=== PATIENT | male | born 1940 | race Caucasian/White ===

== ENCOUNTER 2019-07-27 15:32 | Outpatient (CLI) | payer MEDICARE, OTHER, SELFPAY ==
--- NOTE | ~2019-07-27 | XR_ITS ---
EXAMINATION: XR abdomen/kub 1V DATE: 07/27/2019 16:12 INDICATION: Left kidney stone. TECHNIQUE: A supine view of the abdomen on 2 radiographs was obtained. COMPARISON: Abdomen radiographs 01/02/2017, CT abdomen and pelvis 06/11/2016, chest CT 10/31/2018 FINDINGS: There are no dilated loops of bowel. There is an ostomy on the right. There are phleboliths in the pelvis. Calcifications in the pancreas are consistent with chronic pancreatitis. There are 4 mm and 2 mm densities overlying left kidney, likely stones. IMPRESSION: 1. Small left kidney stones. Reviewed, dictated and finalized at location E.
== END 2019-07-27 15:33 | disposition home or self-care (01) ==
LOC: ANHIMG 15:44
PROVIDERS: PCP Internal Medicine; Visit Provider Urology
DX: N20.0 Calculus of kidney (principal)
CPT/HCPCS: 74018

== ENCOUNTER 2020-10-19 03:06 | Inpatient (IN) | payer MEDICARE, OTHER, SELFPAY ==
[2020-10-19] VITALS (22 sets, daily range): BP systolic 111–168; BP diastolic 45–82; PULSE 88–112; RESP 14–32; TEMP 36.3–39.4; O2SAT 93–100; BMI 26.1
--- NOTE | ~2020-10-19 | XR_ITS ---
XR forearm LT 2V DATE: 10/19/2020 06:06 INDICATION: Fall. Posterior skin avulsion of distal left forearm TECHNIQUE: AP and lateral views COMPARISON: None FINDINGS: No fracture or dislocation, periosteal reaction or bone destruction. Normal alignment at th e elbow and wrist joints. No radiopaque foreign body. IMPRESSION: No significant abnormality Reviewed, dictated and finalized at location A. IMPRESSION: No significant abnormality
--- NOTE | ~2020-10-19 | CT_ITS ---
EXAMINATION: CT abdomen pelvis wo con DATE: 10/19/2020 06:10 INDICATION: Abdominal tenderness, fever. Fall. TECHNIQUE: Computed tomography (CT) of the abdomen and pelvis was performed without intravenous contr ast. Automated exposure control and iterative reconstruction technique were employed. Exam dose: 644 .38 mGy-cm total exam DLP. COMPARISON: 07/08/[address] abdomen pelvis FINDINGS: There is mild discoid atelectasis or scarring at the lung bases. Is evidence of old pulmona ry granulomatous disease. Normal heart size. No pericardial or pleural effusion. Very small sliding hiatal hernia. No hepatic, splenic, pancreatic, adrenal or renal space-occupying mass lesion is evident on this limi ej noncontrast examination. The gallbladder is present. No bile duct or pancreatic duct dilatation. There are numerous ons calcif ications throughout the pancreas consistent with chronic pancreatitis. One punctate nonobstructing right renal calculus is present. No right renal mass lesion. There are several nonobstructing left renal calculi, the largest measuring up to approximately 3 mm. There is an up to 3.8 x 5 mm distal left ureteral calculus with moderately prominent left hydroureter onephrosis as a result. There is perinephric stranding on the left. The urinary bladder is relatively evacuated. There is prostate enlargement and calcification. There is atherosclerotic calcification but normal caliber of the abdominal aorta. No intraperitoneal or retroperitoneal or pelvic mass lesion or adenopathy or ascites is noted. Status post colectomy with right lower quadrant ileostomy. No bowel obstruction or intraperitoneal fr ee air. Moderately prominent degenerative disc disease L3-4 and severe degenerative disease at L4-5 and L5-S1 No suspicious osteolytic or osteoblastic lesions are noted. IMPRESSION: 3.8 x 5 mm distal left ureteral obstructing calculus with moderately prominent left hydr oureteronephrosis 1. Punctate nonobstructing right renal calculus Several 3 mm smaller left renal nonobstructing calculi Chronic pancreatitis Status post colectomy, right ileostomy Reviewed, dictated and finalized at Location A. Reviewed, dictated and finalized at location A. IMPRESSION: 3.8 x 5 mm distal left ureteral obstructing calculus with moderate ly prominent left hydroureteronephrosis 1. Punctate nonobstructing right renal calculus Several 3 mm smaller left renal nonobstructing calculi Chronic pancreatitis Status post colectomy, right ileostomy
--- NOTE | ~2020-10-19 | CT_ITS ---
EXAMINATION: CT cervical spine wo con DATE: 10/19/2020 06:09 INDICATION: Neck pain following fall TECHNIQUE: Computed tomography (CT) of the cervical spine was performed without intravenous contrast. Automated exposure control and iterative reconstruction technique were employed. Exam dose: 404.01 mGy-cm total exam DLP. COMPARISON: None FINDINGS: C1 and C2 are normally aligned and the odontoid process is intact. No fracture or dislocation or locked facet or prevertebral soft tissue swelling. There is severe degenerative disc disease at C5-6 and C6-7 with prominent posterior spurring at these 2 levels. There is degenerative change at the apophyseal joints throughout the cervical spine. There is promine nt uncovertebral joint spurring at C5-6 and C6-7 bilaterally. IMPRESSION: Cervical spondylosis; no fracture or dislocation or locked facet Reviewed, dictated and finalized at Location A. Reviewed, dictated and finalized at location A.
--- NOTE | ~2020-10-19 | XR_ITS ---
EXAMINATION: XR retrograde pyelo w/stent LT DATE: 10/19/2020 14:11 INDICATION: Left ureteral stone. TECHNIQUE: 6 intraoperative fluoroscopic views of the abdomen and pelvis were obtained. I was not pre sent. Fluoroscopy exposure time was 30 seconds. COMPARISON: CT abdomen and pelvis 10/19/2020 FINDINGS: The left-sided retrograde pyelogram demonstrates a filling defect in the distal ureter, con sistent with a stone. There is moderate left hydronephrosis. There is a left internal ureteral stent in expected position. IMPRESSION: 1. Stone in distal left ureter with moderate left hydronephrosis. 2. Left internal ureteral stent in expected position. Reviewed, dictated and finalized at location A.
--- NOTE | ~2020-10-19 | XR_ITS ---
EXAMINATION: XR chest 1V portable DATE: 10/19/2020 21:56 INDICATION: Shortness of breath TECHNIQUE: frontal view of the chest was obtained. COMPARISON: Chest radiograph and CT abdomen and pelvis dated 10/19/2020 FINDINGS: Prominent paracardial fat pad at the lateral left lung base with blunting at the costophrenic angle. Adjacent oblique band of discoid atelectasis/scarring at the lateral left lower lung zone. Minimal st reaky atelectasis at the right lung base. No other airspace opacities, pulmonary edema, pleural effus ion or pneumothorax. The cardiomediastinal silhouette is normal. Old healed right-sided rib fractures . IMPRESSION: 1. Mild discoid atelectasis at the bilateral lower lung zones. No acute cardiopulmonary disease. Reviewed, dictated and finalized at location [facility]. IMPRESSION: 1. Mild discoid atelectasis at the bilateral lower lung zones. No acute cardiop ulmonary disease.
--- NOTE | ~2020-10-19 | CT_ITS ---
EXAMINATION: CT brain wo con DATE: 10/19/2020 06:09 INDICATION: Fall, head and neck injury. Weakness. Fever and abdominal tenderness TECHNIQUE: Computed tomography (CT) of the head was performed without intravenous contrast. The mA wa s adjusted according to patient size. Iterative reconstruction technique was employed. Exam dose: 60 5.33 mGy-cm total exam DLP. COMPARISON: None FINDINGS: No intracranial mass lesion or hemorrhage or cerebrovascular accident. No midline shift or mass effect effect. There is nonspecific diminished attenuation cerebral white matter, likely due to chronic small vessel ischemic changes. No subdural or epidural hematoma. No fracture or bone destruction of the cranial vault. Included paranasal sinuses and mastoid air cell s are unremarkable. IMPRESSION: Nonspecific diminished attenuation of the cerebral white matter, likely due to chronic s mall vessel ischemic changes No acute intracranial finding or skull fracture Reviewed, dictated and finalized at [facility]. Reviewed, dictated and finalized at location A. IMPRESSION: Nonspecific diminished attenuation of the cerebral white matter, l ikely due to chronic small vessel ischemic changes No acute intracranial finding or skull fracture
--- NOTE | ~2020-10-19 | XR_ITS ---
XR chest 1V portable DATE: 10/19/2020 03:29 INDICATION: Fever, weakness TECHNIQUE: Portable upright AP chest on 10/19/2020 at 0325 hours COMPARISON: 12/22/2014 2 view chest 10/31/[address] screening examination FINDINGS: Normal heart size. No hilar or mediastinal enlargement. No pulmonary consolidation or pleur al effusion or pneumothorax. No pleural effusion. Diffuse osteopenia. Multiple old healed right rib fracture deformities. IMPRESSION: No active cardiopulmonary disease Reviewed, dictated and finalized at location A.
--- NOTE | 2020-10-19 03:18 | ECG_ITS ---
Measurements Intervals [place] Rate: 101 P: 5 DC: 136 QRS: 8 QRSD: 92 T: -25 QT: 309 QTc: 400 Interpretive Statements SINUS TACHYCARDIA BORDERLINE T WAVE ABNORMALITY- ANTERIOR LEADS BASELINE ARTIFACT- II, III, AVR, AVL, AVF, V1-V6 BORDERLINE ECG Electronically Signed On 10-19-2020 5:54:28 CDT by Eduardo Stern D.O.
[2020-10-19 03:56] LABS: Basophils Absolute Auto 0.1 K/mm3 (0.0-0.1); Basophils Percent Auto 0.4 % (0.2-1.2); Eosinophils Percent Auto 0.1 % (0-4.4); Hematocrit 48.2 % (42.0-52.0); Hemoglobin 15.6 g/dL (14.0-18.0); Immature Granulocyte Absolute 0.32 K/mm3 (0.00-0.031); Immature Granulocyte Percent A 1.6 % (0-0.5); Lymphocytes Absolute Auto 0.57 K/mm3 (0.9-3.2); Lymphocytes Percent Auto 2.9 % (18.3-44.2); Mean Corpuscular HGB Conc 32.4 g/dl (32-36); Mean Corpuscular Hemoglobin 31.3 pg (26-34); Mean Corpuscular Volume 96.6 fl (80-100); Mean Platelet Volume 8.4 fl (7.4-10.4); Monocytes Absolute Auto 1.4 K/mm3 (0.1-0.6); Monocytes Percent Auto 7.2 % (2.6-8.5); Neutrophils Absolute Auto 17.4 K/mm3 (1.3-6.7); Neutrophils Percent Auto 87.8 % (45.5-73.1); Platelet Count Result 181 k/mm3 (150-375); Red Blood Count 4.99 M/mm3 (4.6-6.20); Red Cell Distribution Width 12.6 % (11.5-14.5); White Blood Count 19.8 K/mm3 (4.5-10.0)
[2020-10-19 04:09] LABS: Lactic Acid Reflex 2.8 mmol/L (0.7-2.1)
[2020-10-19 04:14] LABS: INR 1.1; Partial Thromboplastin Time 26.4 SECONDS (22.3-36.8); Prothrombin Time 14.2 Seconds (11.1-14.7)
[2020-10-19 04:16] LABS: Alanine Aminotransferase 24 U/L (4-50); Albumin Level 4.2 g/dL (3.5-5.1); Alkaline Phosphatase 93 U/L (38-126); Anion Gap 9 mmol/L (8-16); Aspartate Amino Transferase 30 U/L (17-59); Bilirubin,Total 1.5 mg/dL (0.2-1.3); Blood Urea Nitrogen 16 mg/dL (9-20); Calcium 9.6 mg/dL (8.4-10.2); Carbon Dioxide 25 mmol/L (22-30); Chloride 102 mmol/L (98-107); Creatine Kinase 395 U/L (55-170); Estimated Glomerular Filt Rate 42; Glucose 116 mg/dL (65-110); Magnesium 1.7 mg/dL (1.6-2.3); Potassium 3.4 mmol/L (3.4-5.0); Sodium 136 mmol/L (137-145)
[2020-10-19 04:30] LABS: CRP 21.8 mg/dL (<1.0)
[2020-10-19 04:59] LABS: Add Urine Microscopic? YES; Appearance Urine Clear (Clear); Bacteria Urine Trace /hpf; Bilirubin Urine Negative (Negative); Blood Urine 3+ (Negative); Color Urine Yellow (Yellow); Glucose Urine UA Negative (Negative); Ketones Urine Trace mg/dL (Negative); Leukocyte Esterase Ur 1+ LEU/UL (Negative); Mucus Urine Rare /lpf; Nitrate Urine Negative (Negative); Protein Urine 2+ mg/dL (Negative); Specific Grav Ur 1.016 (1.001-1.035); Squamous Epithelial Cell Urine Rare /hpf (Few); Urobilinogen Urine Negative mg/dL (<2.0); WBC Urine 31-50 /hpf
--- NOTE | 2020-10-19 05:22 | ED.GENADULT ---
HPI - General Adult General Chief complaint: Fall Stated complaint: fall Time Seen by Provider: 10/19/20 04:45 Source: patient Mode of arrival: EMS Limitations: no limitations History of Present Illness HPI narrative: This is a 79 year old male with history of Chrohns' disease and COPD who presents for evaluation of a fall. Patient states he has not felt well that last couple of days. He reports increased tremors, body aches, shortness of breath, and upset stomach. Today he states he was having difficulty walking due to weakness and he accidentally fell last night. He states he fell onto his left side. He hit his head but he denies LOC. He states he was unable to get up so he laid on the floor for 4 hours prior to coming to ER. He has decreased appetite and nausea, and he states he has not eaten today so he feels dehydrated. He states he feels like his chronic sob is being exacerbated because he does not feel well. He denies worsening cough. He denies sick contacts and he has been vaccinated for covid He also had mild dysuria. Related Data Home Medications Medication Instructions Recorded Confirmed finasteride 5 mg tablet 5 mg PO DAILY 01/20/20 01/20/20 fluticasone propionate 50 1 spray INTRANASAL BID 01/20/20 01/20/20 mcg/actuation nasal spray,suspension lactobacillus combination no.8 3 250 mmu cells PO DAILY cap 01/20/20 01/20/20 billion cell capsule tamsulosin 0.4 mg capsule 0.4 mg PO DAILY 01/20/20 01/20/20 magnesium oxide 400 mg PO DAILY 07/21/20 potassium 99 mg tablet mg PO DAILY tablet 07/21/20 albuterol sulfate 1 puff INHALATION QID PRN 10/19/20 10/19/20 [id number] 1 inh INHALATION DAILY 10/19/20 10/19/20 [Trelegy Ellipta] lorazepam 0.5 mg PO DAILY PRN 10/19/20 10/19/20 mesalamine [Pentasa] 500 mg PO TID 10/19/20 10/19/20 trazodone 50 mg PO HS PRN 10/19/20 10/19/20 Allergies Allergy/AdvReac Type Severity Reaction Status Date / Time clindamycin Allergy Unknown Itching Verified 10/19/20 03:16 Penicillins Allergy Unknown Anaphylactic Verified 10/19/20 03:16 Shock prednisone AdvReac Dizziness Verified 10/19/20 15:51 Contrast Media Allergy Unknown Itching Uncoded 10/19/20 03:16 Review of Systems Review of Systems: All systems reviewed & are unremarkable except as noted in HPI and below PMFSH Past Medical History Medical History Benign prostatic hyperplasia Chronic low back pain Chronic obstructive pulmonary disease Crohn's disease Depression with anxiety Gastroesophageal reflux disease Ileostomy in place Migraine headache Osteoarthritis Surgical History Surgical History History of exploratory laparotomy (02/03/13) Exploratory laparotomy with extensive adhesiolysis, partial small-bowel resection, takedown and ileostomy with creation of new ileostomy and 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 Status post colectomy (1991) Total colectomy in 1991 with subsequent ileostomy. Family History Family History Mother Family history of malignant neoplasm of breast in first degree relative Family history of Alzheimer's disease Family history of arthritis Breast cancer Father Cerebrovascular accident Family history of coronary artery disease Social History Social History Smoking packs per day: 1 Smoking cigarettes per day: 20.0 Years smoked: 40 Smoking pack-years: 40.00 Smoking status: Former smoker Tobacco type: cigarettes Smoking end date: 03/11/11 Alcohol intake: never Substance use: never Gender identity (if verbalized by the patient): Male Spiritual care concerns: No Exam Const: General: no acute distress and alert Orientation/consciousness: patient oriented x3 Eye
--- NOTE | 2020-10-19 05:43 | PC.NURSE ---
Pt to imaging at this time.
[2020-10-19] MEDS: SODIUM CHLORIDE 0.9% IV 1,000 ML 999 ML IV CONT (06:09)
[2020-10-19] MEDS: TETANUS,DIPHTHERIA,AC PERTUSSIS ADULT (0.5 ML) BOOSTRIX IM (06:12)
[2020-10-19 06:59] LABS: Reflex Lactic Acid Yes or No Add Lactic
--- NOTE | 2020-10-19 07:28 | PC.NURSE ---
care assumed at this time. bedside report from nasima resendez.
[2020-10-19 07:46] LABS: Lactic Acid 1.2 mmol/L (0.7-2.1)
--- NOTE | 2020-10-19 09:43 | WPDURCON ---
Assessment and Plan Assessment and plan (1) Severe sepsis: Code(s): A41.9 - Sepsis, unspecified organism; R65.20 - Severe sepsis without septic shock Status: Acute Assessment and Plan: Patient to continue Levaquin, tailor antibiotics to culture results. (2) Calculus of distal left ureter: Code(s): N20.1 - Calculus of ureter Status: Acute Assessment and Plan: Keep NPO. Obtain consent: Cystoscopy, left ureteroscopy with stent placement, left retrograde pyelogram. Plan to go to the OR today around 13:[address] Bae. Urology Consult Note HPI Date Seen: 10/19/20 Primary Care Provider: Konstantin Christian, Consult Narrative Narrative: Quan Martinez is a 79 year old male who presented to the ER this morning with weakness and a fall at home. He also c/o gross hematuria, dysuria, nausea and LLQ pain that radiates to the left flank. His symptoms have been present x 2 days. He is known patient of Dr. Bae's. He was last seen in our office on 03/09/2020 and was followed for known kidney stones. His most recent KUB known to us was in 07/2019 showing small left kidney stones. His WBC today is 19.8 and creatinine 1.60, urinalysis is suspicious for infection at this time, urine and blood cultures are pending. HIs CT scan today shows a 3.8x5mm left distal ureteral stone with mild hydronephrosis, punctate right renal stone and several other small left renal non obstructive stones measuring up to 3mm in size. Review of Systems Cardiovascular: Cardiovascular: Denies chest pain Respiratory: Respiratory: Reports no additional respiratory complaints Gastrointestinal: Gastrointestinal: Reports abdominal pain, Reports nausea and Denies vomiting Genitourinary: Genitourinary: Reports hematuria, Reports dysuria, Reports flank pain and Denies urinary frequency PMF Past Medical History Medical History Crohn's colitis Ileostomy in place Surgical History Surgical History Status post colectomy Family History Family History Mother Family history of malignant neoplasm of breast in first degree relative Other Cerebrovascular accident Family history of Alzheimer's disease Family history of arthritis Family history of coronary artery disease Social History Social History Smoking status: Former smoker Smoking end date: 03/11/93 Alcohol intake: current Meds Home Medications and Allergies Home Medications Medication Instructions Recorded Confirmed Type finasteride 5 mg tablet 5 mg PO DAILY 01/20/20 01/20/20 History fluticasone propionate 50 1 spray INTRANASAL BID 01/20/20 01/20/20 History mcg/actuation nasal spray,suspension lactobacillus combination no.8 3 250 mmu cells PO DAILY cap 01/20/20 01/20/20 History billion cell capsule montelukast 10 mg tablet 10 mg PO DAILY 01/20/20 01/20/20 History tamsulosin 0.4 mg capsule 0.4 mg PO DAILY 01/20/20 01/20/20 History trazodone 50 mg tablet 0.5 mg PO TID tablet 01/20/20 01/20/20 History magnesium oxide 400 mg PO DAILY 07/21/20 History potassium 99 mg tablet mg PO DAILY tablet 07/21/20 History Allergies Allergy/AdvReac Type Severity Reaction Status Date / Time clindamycin Allergy Unknown Itching Verified 10/19/20 03:16 Penicillins Allergy Unknown Anaphylactic Verified 10/19/20 03:16 Shock prednisone Allergy Dizziness Verified 10/19/20 03:16 Contrast Media Allergy Unknown Itching Uncoded 10/19/20 03:16 Vital Signs Vital Signs - 24 hr 10/19/20 03:07 10/19/20 04:42 10/19/20 05:01 Temperature 100.9 F H Pulse Rate 112 H 100 100 Respiratory Rate 28 H 18 32 H Blood Pressure 168/82 H 146/73 H 142/70 H Pulse Oximetry 96 98 96 10/19/20 05:31 10/19/20 06:31 10/19/20 07:2
--- NOTE | 2020-10-19 11:15 | PC.NURSE ---
This patient, Quan Martinez, was admitted to 3 [facility] Surg Room 323-01. Patient/family oriented to hospital policies and general routines including ID bracelet, bed and alarms, visiting hours, pain management, procedures, bathroom and other care routines, personal items, smoking policy, room service/diet, and visiting hours. Report received from Gisele WRIGHT Information on how to activate the Rapid Response Team has been discussed. Patient/Family are encouraged to report perceived risks to care and to ask questions if they do not understand what they are told or what they should do.
[2020-10-19] MEDS: SODIUM CHLORIDE 0.9% IV 1,000 ML 150 ML IV CONT (12:15)
--- NOTE | 2020-10-19 12:40 | PC.NURSE ---
To OR via stretcher.
--- NOTE | 2020-10-19 13:10 | PM.IMHP ---
H&P: HPI History of Present Illness Date/Time: 10/19/20 13:10 Chief Complaint: Fall. Narrative: This is a 79-year-old male Crohn's disease, COPD, and tremors who presented to the emergency department earlier today via EMS from home for evaluation after a fall. The patient has not been feeling well for several days with several symptoms including body aches, nausea, dry heaves, decreased appetite, dysuria, and increased tremors. Last evening he felt weak, lost his balance, and fell back onto floor where he lay for approximately 4 hours before he could call for help. He denies head trauma and loss of consciousness in the fall. He does report mild back discomfort and pain in his elbows where he sustained skin tears and bruising. In the emergency department he met criteria for sepsis and was found to have urinary tract infection as well as a distal ureteral calculus with left hydroureteronephrosis. He is now status post cystoscopy with stent placement. He is having some mild back discomfort and seems to feel a bit more short of breath than baseline, recently trying his inhaler without much benefit. He denies sinus congestion, rhinorrhea, otalgia, odynophagia, cough, chest pain, pleuritic pain, palpitations, orthopnea, PND, lower extremity edema, vomiting, and diarrhea. Review of Systems Review of Systems: Twelve systems were reviewed with pertinent positives and as per HPI. No sick contacts. No known exposure to those positive for COVID-19. He did have chills earlier on but no known fever at home. He denies syncope and near syncope. He does have COPD and has chronic dyspnea, sometimes at rest, but he feels a bit more short of breath tonight. No orthopnea or PND. He has not noticed any blood or mucus in his stool. He has faint upper extremity tremors intermittently which seemed to have gotten worse the last couple of days. Except as documented, all other systems were reviewed and are negative. 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 Status post colectomy (1991) Total colectomy in 1991 with subsequent ileostomy. Family History Family History Mother Family history of malignant neoplasm of breast in first degree relative Family history of Alzheimer's disease Family history of arthritis Breast cancer Father Cerebrovascular accident Family history of coronary artery disease Social History Social History (Updated 10/19/20 @ 21:48 by Tressa Krueger PA-C) Social History: Surrogate decision maker: Taylor Davis, friend. Code status: Full code. Smoking packs per day: 1 Smoking cigarettes per day: 20.0 Years smoked: 40 Smoking pack-years: 40.00 Smoking status: Former smoker Tobacco type: cigarettes Smoking end date: 03/11/11 Alcohol intake: never Substance use: never Additional living arrangements comments: The patient lives alone in [place]. He has no children. Has been for over many years. 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 Meds Home Medications and Allergies Home Medications Medication Instructions Recorded Confirmed Type finasteride 5 mg tablet 5 mg PO DAILY 01/20/20 10/19/20 History fluticasone propionate 50 1 spray INTRANASAL BID 01/20/20 10/19/20 History mcg/actuation nasal spray,s
--- NOTE | 2020-10-19 13:30 | WPDHPUPDATE1 ---
History and Physical Update Update Date/Time: 10/19/20 13:30 History and Physical has been reviewed, including an updated exam of the patient. There are NO changes in the patient's condition. Risks, benefits, and alternatives have been discussed and questions answered. Patient agrees to proceed with procedure.
--- NOTE | 2020-10-19 13:30 | WPDANESEPPF ---
Anes - Initial Pre Proc Eval Procedure: Operation Date: 10/19/20 13:30 Proposed Procedures p Cystoscopy,Left Retrograde Pyelogram,Left Stent Placement - Justin Bae MD Date/Time: 10/19/20 13:30 Surgeon: Tere Tran MD Pre Op Diagnosis: sepsis,uti,left disteal ureter stone Patient Data Age: 79 Gender: M Height: 1.73 m Weight: 78 kg Last Vital Signs Temp 38.7 C H 10/19/20 12:49 Pulse 105 H 10/19/20 12:49 Resp 20 10/19/20 12:49 BP 131/49 L 10/19/20 12:49 Pulse Ox 96 10/19/20 12:49 Allergies Allergy/AdvReac Type Severity Reaction Status Date / Time clindamycin Allergy Unknown Itching Verified 10/19/20 03:16 Penicillins Allergy Unknown Anaphylactic Verified 10/19/20 03:16 Shock prednisone Allergy Dizziness Verified 10/19/20 03:16 Contrast Media Allergy Unknown Itching Uncoded 10/19/20 03:16 Home Medications Medication Instructions Recorded Confirmed Type finasteride 5 mg tablet 5 mg PO DAILY 01/20/20 01/20/20 History fluticasone propionate 50 1 spray INTRANASAL BID 01/20/20 01/20/20 History mcg/actuation nasal spray,suspension lactobacillus combination no.8 3 250 mmu cells PO DAILY cap 01/20/20 01/20/20 History billion cell capsule montelukast 10 mg tablet 10 mg PO DAILY 01/20/20 01/20/20 History tamsulosin 0.4 mg capsule 0.4 mg PO DAILY 01/20/20 01/20/20 History trazodone 50 mg tablet 0.5 mg PO TID tablet 01/20/20 01/20/20 History magnesium oxide 400 mg PO DAILY 07/21/20 History potassium 99 mg tablet mg PO DAILY tablet 07/21/20 History Laboratory Tests 10/19/20 10/19/20 10/19/20 03:50 03:50 03:50 WBC 19.8 K/mm3 H K/mm3 (4.5-10.0) RBC 4.99 M/mm3 M/mm3 (4.6-6.20) Hgb 15.6 g/dL g/dL (14.0-18.0) Hct 48.2 % % (42.0-52.0) MCV 96.6 fl fl (80-100) MCH 31.3 pg pg (26-34) MCHC 32.4 g/dl g/dl (32-36) RDW 12.6 % % (11.5-14.5) Plt Count 181 k/mm3 k/mm3 (150-375) MPV 8.4 fl fl (7.4-10.4) Immature Gran % (Auto) 1.6 % H % (0-0.5) Neut % (Auto) 87.8 % H % (45.5-73.1) Lymph % (Auto) 2.9 % L % (18.3-44.2) [place] % (Auto) 7.2 % % (2.6-8.5) Eos % (Auto) 0.1 % % (0-4.4) Baso % (Auto) 0.4 % % (0.2-1.2) Lymph # (Auto) 0.57 K/mm3 L K/mm3 (0.9-3.2) [place] # (Auto) 1.4 K/mm3 H K/mm3 (0.1-0.6) Eos # (Auto) 0.0 K/mm3 K/mm3 (0-0.3) Baso # (Auto) 0.1 K/mm3 K/mm3 (0.0-0.1) Abs Immat Gran (auto) 0.32 K/mm3 H K/mm3 (0.00-0.031) Absolute Neuts (auto) 17.4 K/mm3 H K/mm3 (1.3-6.7) Absolute Nucleated RBC 0.0 K/mm3 K/mm3 (0.0-0.012) Nucleated RBC % 0.0 % % (0.0-0.2) PT 14.2 Seconds Seconds (11.1-14.7) INR 1.1 APTT 26.4 SECONDS SECONDS (22.3-36.8) Sodium 136 mmol/L L mmol/L (137-145) Potassium 3.4 mmol/L mmol/L (3.4-5.0) Chloride 102 mmol/L mmol/L (98-107) Carbon Dioxide 25 mmol/L mmol/L (22-30) Anion Gap 9 mmol/L mmol/L (8-16) BUN 16 mg/dL mg/dL (9-20) Creatinine 1.60 mg/dL H mg/dL (0.7-1.3) Estim Creat Clear Calc Not Reportable Estimated GFR 42 L (59 - ) Glucose 116 mg/dL H mg/dL (65-110) Lactic Acid Calcium 9.6 mg/dL mg/dL (8.4-10.2) Magnesium 1.7 mg/dL mg/dL (1.6-2.3) Total Bilirubin 1.5 mg/dL H mg/dL (0.2-1.3) AST 30 U/L U/L (17-59) ALT 24 U/L U/L (4-50) Alkaline Phosphatase 93 U/L U/L (38-126) Total Creatine Kinase 395 U/L H U/L (55-170) C-Reactive Protein 21.8 mg/dL H mg/dL (<1.0) Total Protein 7.0 g/dL g/dL (6.3-8.2) Albumin 4.2 g/dL g/dL (3.5-5.1) Urine Color Urine Appearance Urine pH
[2020-10-19] MEDS: LACTATED RINGERS 1,000 ML 30 ML IV CONT ×2 (13:38→15:22)
--- NOTE | 2020-10-19 13:45 | SUR.PREOP ---
ATTEMPTED TO UPDATE NOEYDA [place]AR[place]. PHONE NUMBER LISTED IS INCORRECT. NOTIFIED OR STAFF TO MAKE DR MERCADO AWARE. ALSO NOTIFIED MARIANNE [employer] THAT PT'S TEMP IS 102.7
[2020-10-19] MEDS: LIDOCAINE HCL 2% GEL UROJET 10 ML PKG MUCOUS MEM (14:00)
--- NOTE | 2020-10-19 14:09 | P.OP_ITS ---
Procedure Note - Detailed Date of Procedure 10/19/20 Pre-op Diagnosis sepsis,uti,left distal ureter stone Post-op Diagnosis same Procedure Performed Cystoscopy, left retrograde pyelogram, left ureteral stent insertion, Odell catheter insertion Surgeon Justin Bae MD Anesthesia general Findings Left hydronephrosis Description of Procedure Informed consents obtained. Patient taken the operating. Given preoperative IV antibiotics on the floor. The patient was induced anesthesia. He was placed in dorsal lithotomy position. He was prepped draped normal sterile fashion. A 22 F cystoscope was inserted through the urethra into the bladder. The bladder s howed finding consistent with his known urinary tract infection. There is bilateral orthotopic ureteral orifices. We cannulated the left ureteral orifice retrograde pyelogram was performed that showed a filling defect in the mid/distal ureter. We then manipulate a wire past the level of the stone. We then performed additional retrograde pyelogram showing severe left hydronephrosis. At this point we placed a 6 F variable length stent with a curl in the renal pelvis and a curl in the bladder. The bladder was then emptied with a Odell catheter. The patient has taken recovery room stable condition Drains No Packing No Pathology none sent Complications No immediate complications Condition stable Disposition PACU
--- NOTE | 2020-10-19 15:34 | SUR.PHASEI ---
[id number] sbar faxed floor notified
--- NOTE | 2020-10-19 15:55 | PC.NURSE ---
Back from OR via stretcher.
[2020-10-19] MEDS: SODIUM CHLORIDE 0.9% IV 1,000 ML 125 ML IV CONT (16:36)
[2020-10-19] MEDS: FLUTICASONE PROPIONATE 0.05% NA SPR 16 GM BTL (*BKC) 1 SPRAY NASAL (18:47)
[2020-10-19 22:45] LABS: Lactic Acid Reflex 1.2 mmol/L (0.7-2.1)
[2020-10-19 22:46] LABS: Anion Gap 6 mmol/L (8-16); Blood Urea Nitrogen 20 mg/dL (9-20); Carbon Dioxide 22 mmol/L (22-30); Chloride 104 mmol/L (98-107); Creatine Kinase 737 U/L (55-170); Estimated CRCL calculation 33 ml/min; Estimated Glomerular Filt Rate 42; Glucose 96 mg/dL (65-110); Magnesium 1.4 mg/dL (1.6-2.3); Potassium 4.1 mmol/L (3.4-5.0); Sodium 132 mmol/L (137-145)
[2020-10-19 22:55] LABS: NT Pro B Type Natriuretic Pept 1620 pg/mL (5-100)
[2020-10-20] MEDS: MAGNESIUM SULF 1 GM/D5W 100 ML 1 GM/100 ML BAG IVPB (00:39)
[2020-10-20 00:40] VITALS: TEMP 37.1
[2020-10-20] MEDS: SODIUM CHLORIDE 0.9% IV 1,000 ML 125 ML IV CONT ×3 (00:40→17:17)
[2020-10-20 05:49] VITALS: BP 103/53; PULSE 87; RESP 18; TEMP 38.1; O2SAT 95
[2020-10-20 07:17] LABS: Hematocrit 39.7 % (42.0-52.0); Hemoglobin 12.5 g/dL (14.0-18.0); Mean Corpuscular HGB Conc 31.5 g/dl (32-36); Mean Corpuscular Hemoglobin 30.9 pg (26-34); Mean Corpuscular Volume 98.3 fl (80-100); Mean Platelet Volume 8.8 fl (7.4-10.4); Platelet Count Result 132 k/mm3 (150-375); Red Blood Count 4.04 M/mm3 (4.6-6.20); Red Cell Distribution Width 12.8 % (11.5-14.5); White Blood Count 10.7 K/mm3 (4.5-10.0)
[2020-10-20 07:39] LABS: Alanine Aminotransferase 17 U/L (4-50); Albumin Level 2.5 g/dL (3.5-5.1); Alkaline Phosphatase 56 U/L (38-126); Anion Gap 8 mmol/L (8-16); Aspartate Amino Transferase 39 U/L (17-59); Bilirubin,Total 0.4 mg/dL (0.2-1.3); Blood Urea Nitrogen 20 mg/dL (9-20); Calcium 7.6 mg/dL (8.4-10.2); Carbon Dioxide 19 mmol/L (22-30); Chloride 102 mmol/L (98-107); Estimated CRCL calculation 35 ml/min; Estimated Glomerular Filt Rate 45; Glucose 83 mg/dL (65-110); Magnesium 1.9 mg/dL (1.6-2.3); Potassium 3.9 mmol/L (3.4-5.0); Sodium 129 mmol/L (137-145)
[2020-10-20 08:26] LABS: Band Neutrophils Percent 15 % (0-6); Hypochromasia 2+ (NORMAL); Lymphocytes Absolute Manual 0.32 K/mm3 (1.1-4.5); Monocytes Absolute Manual 0.64 K/mm3 (0.1-0.90); Monocytes Percent Manual 6 % (3-9); Neutrophils Absolute Manual 9.73 K/mm3 (1.3-6.7); Neutrophils Percent Manual 76 % (46-73); Platelet Estimate Adequate (Adequate); Total Cells Counted 100
--- NOTE | 2020-10-20 08:52 | WPDUROPN2 ---
Progress Note: A&P Assessment and Plan (1) Elevated serum creatinine: Code(s): R79.89 - Other specified abnormal findings of blood chemistry Status: Acute Assessment and Plan: Improved slightly since stent was placed, now at 1.50 from 1.60 yesterday. Will continue to monitor until it returns to baseline. (2) Sepsis: Code(s): A41.9 - Sepsis, unspecified organism Status: Acute Assessment and Plan: Continue IV antibiotics, culture is pending, tailor antibiotics to culture results. WBC has significantly improved to 10.7 from 19.8 yesterday. (3) Calculus of distal left ureter: Code(s): N20.1 - Calculus of ureter Status: Acute Assessment and Plan: Left stent in place, will plan to remove stone in 1-2 weeks once infection has cleared. No further surgical procedures necessary at this time. Subjective Subjective Date/Time Seen: 10/20/20 08:53 POD #1 Cystoscopy, left stent placement, left retrograde pyelogram. Patient doing better today, pain is improved, c/o of some stent pain with urination and activity. Tolerating diet well. Review of Systems Cardiovascular: Cardiovascular: Denies chest pain Respiratory: Respiratory: Reports no additional respiratory complaints Gastrointestinal: Gastrointestinal: Reports abdominal pain, Denies nausea and Denies vomiting Genitourinary: Genitourinary: Reports hematuria, Reports dysuria and Reports flank pain Exam Resp: Effort & Inspection: normal respiratory effort Cardio: Rate: regular rate GI: GI Palp: Yes Soft to palpation and Yes Tenderness to palpation present (GI) (Bilateral lower quadrants.) : General: Yes CVA tenderness on the left Extrem: General: no edema Objective Data Vital Signs Vital Signs: Vital Signs - 24 hr 10/19/20 10:38 10/19/20 12:10 10/19/20 12:49 Temperature 101.6 F H Pulse Rate 102 H 105 H Respiratory Rate 16 20 Blood Pressure 138/82 131/49 L Pulse Oximetry 100 100 96 10/19/20 13:38 10/19/20 14:25 10/19/20 14:40 Temperature 102.7 F H 97.4 F L Pulse Rate 107 H 103 H 102 H Respiratory Rate 22 H 22 H 20 Blood Pressure 121/63 118/59 L 118/59 L Pulse Oximetry 95 98 100 10/19/20 14:45 10/19/20 15:00 10/19/20 15:15 Temperature Pulse Rate 91 89 90 Respiratory Rate 20 18 20 Blood Pressure 124/57 L 120/58 L 111/65 Pulse Oximetry 97 98 97 10/19/20 15:30 10/19/20 15:46 10/19/20 16:03 Temperature 99.8 F H Pulse Rate 89 92 88 Respiratory Rate 20 14 20 Blood Pressure 120/67 133/71 126/45 L Pulse Oximetry 93 95 96 10/19/20 20:00 10/19/20 22:10 10/19/20 22:18 Temperature 103 F H 103.0 F H Pulse Rate 96 Respiratory Rate 20 20 Blood Pressure 128/56 L Pulse Oximetry 96 94 10/19/20 23:00 10/20/20 00:40 10/20/20 05:49 Temperature 101.7 F H 98.7 F 100.5 F H Pulse Rate 87 Respiratory Rate 18 Blood Pressure 103/53 L Pulse Oximetry 95 Intake/Output Intake/Output: Intake & Output 10/17/20 10/18/20 10/19/20 10/20/20 23:59 23:59 23:59 23:59 Intake Total 3336 1300 Output Total 800 1050 Balance 2536 250 Meds/Results Medications: Active Medications Generic Name Dose Route Start Last Admin Trade Name Marquiseq PRN Reason Stop Dose Admin Finasteride 5 mg 10/20/20 09:00 Finasteride 5 Mg Tablet PO DAILY MATHEW Fluticasone Propionate 1 spray 10/19/20 17:00 10/19/20 18:47 Fluticasone Propionate 0.05% Na Spr 16 Gm Btl (*Bkc) NASAL 1 spray BID MATHEW Administration Levofloxacin/Dextrose 750 mg in 150 mls @ 100 mls/hr 10/21/20 06:00 Levaquin 750 Mg/D5w 150 Ml IVPB Q48H MATHEW Sodium Chloride 1,000 mls @ 100 mls/hr 10/19/20 14:39 10/20/20 00:40 Normal Saline Iv IV CONT 125 mls/hr .Q10H MTAHEW Administration Lactobacillus Acidophilus 1 tablet 10/20/20 09:00 Acidophilus/Bulgaricus Chewable Tablet PO DAILY MATHEW Magnesium Oxide 400 mg 10/20/20 09:00 Magnesium Oxide 400 Mg Tablet PO DAILY S
[2020-10-20] MEDS: FINASTERIDE 5 MG TABLET PO (09:16)
[2020-10-20] MEDS: TAMSULOSIN HCL 0.4 MG CAPSULE PO (09:16)
[2020-10-20] MEDS: MAGNESIUM OXIDE 400 MG TABLET PO ×2 (09:17→09:19)
[2020-10-20] MEDS: FLUTICASONE PROPIONATE 0.05% NA SPR 16 GM BTL (*BKC) 1 SPRAY NASAL (09:17)
[2020-10-20] MEDS: ACIDOPHILUS/BULGARICUS CHEWABLE TABLET 1 TABLET PO (09:17)
--- NOTE | 2020-10-20 15:06 | PM.IMPN ---
Progress Note: A&P Assessment and Plan (1) Sepsis: Code(s): A41.9 - Sepsis, unspecified organism Status: Acute Assessment and Plan: 2/2 UTI fever, tachycardia, leukocytosis, and elevated lactic acid level POA Continue with IV levofloxacin (2) Urinary tract infection: Code(s): N39.0 - Urinary tract infection, site not specified Status: Acute Assessment and Plan: UC NGTD Treatment as above (3) Calculus of distal left ureter: Code(s): N20.1 - Calculus of ureter Status: Acute Assessment and Plan: S/p cystoscopy with left ureteral stent placement per Dr. Bae POD #1 (4) Elevated serum creatinine: Code(s): R79.89 - Other specified abnormal findings of blood chemistry Status: Acute Assessment and Plan: Improving Suspect 2/2 poor intake, ureter stone Cr 1.6-->1.5 today Continue IVF Monitor (5) Benign prostatic hyperplasia: Code(s): N40.0 - Benign prostatic hyperplasia without lower urinary tract symptoms Status: Chronic Assessment and Plan: Continue home meds (6) Chronic obstructive pulmonary disease: Code(s): J44.9 - Chronic obstructive pulmonary disease, unspecified Status: Acute Assessment and Plan: No acute exacerbation Continue home inhalers (7) Crohn's disease: Code(s): K50.90 - Crohn's disease, unspecified, without complications Status: Acute Assessment and Plan: Stable Additional Plan Disposition: d/c home with [facility] pending recovery Subjective Date/time seen: 10/20/20 15:06 Interval history: pt seen and evaluated; no acute events; complains of [place] and some lower abdominal discomformt Review of Systems Review of Systems: All systems reviewed & are unremarkable except as noted in HPI and below Exam Const: General: no acute distress, alert and awake Orientation/consciousness: patient oriented x3 HENMT: Head: normocephalic and atraumatic Ears: hearing grossly normal bilaterally and external ears normal Face and sinus: face symmetric Mouth: Yes Normal oral and palatal mucosa present Eyes: Pupils: Equal, round and reactive pupils present EOM: EOMs intact bilaterally Neck: Neck: full ROM, trachea midline and no JVD Thyroid: thyroid normal Chest: Chest palpation & inspection: normal inspection of the chest Resp: Effort & Inspection: normal respiratory effort Auscultation: clear to auscultation bilaterally Cardio: Jugular venous distension: no JVD Rate: regular rate Rhythm: regular rhythm Heart sounds: S1 normal heart sound present and S2 normal heart sound present GI: Inspection: other (ileostomy ) GI Palp: Yes abdominal tenderness and Yes Soft to palpation Percussion: Yes normal to percussion : General: Yes no CVA tenderness Back/Spine/Pelvis: Back: no CVA tenderness Skin: General skin exam: normal color Rashes: no rashes Neuro: General: patient oriented x3 and CN's II-XI intact bilaterally Cranial nerves: Yes Equal, round and reactive pupils present Speech: normal speech Psych: Appearance: grossly normal Affect: normal affect Judgement: Good judgement present (Psych) Objective Data Vital Signs Vital Signs: Vital Signs - 24 hr 10/19/20 15:15 10/19/20 15:30 10/19/20 15:46 Temperature Pulse Rate 90 89 92 Respiratory Rate 20 20 14 Blood Pressure 111/65 120/67 133/71 Pulse Oximetry 97 93 95 10/19/20 16:03 10/19/20 20:00 10/19/20 22:10 Temperature 37.7 C H 39.4 C H Pulse Rate 88 Respiratory Rate 20 20 Blood Pressure 126/45 L Pulse Oximetry 96 96 10/19/20 22:18 10/19/20 23:00 10/20/20 00:40 Temperature 39.4 C H 38.7 C H 37.1 C Pulse Rate 96 Respiratory Rate 20 Blood Pressure 128/56 L Pulse Oximetry 94 10/20/20 05:49 Temperature 38.1 C H Pulse Rate 87 Respiratory Rate 18 Blood Pressure 103/53 L Pulse Oximetry 95 Intake/Output Intake/Output: Intake & Output 10/17/20 10/18/20 10/19/20 0
[2020-10-20 15:17] VITALS: BP 132/53; PULSE 76; RESP 18; TEMP 36.8; O2SAT 96
[2020-10-20] MEDS: HYDROcodone/acetaminophen (*CRX) 5-325 MG TABLET 1 TAB PO (17:15)
[2020-10-20 20:00] VITALS: O2SAT 96
[2020-10-21] MEDS: HYDROcodone/acetaminophen (*CRX) 5-325 MG TABLET 1 TAB PO ×2 (05:49→17:59)
[2020-10-21 06:00] VITALS: BP 150/62; PULSE 70; RESP 18; TEMP 37.2; O2SAT 96
[2020-10-21] MEDS: FLUTICASONE PROPIONATE 0.05% NA SPR 16 GM BTL (*BKC) 1 SPRAY NASAL (08:05)
[2020-10-21] MEDS: TAMSULOSIN HCL 0.4 MG CAPSULE PO (08:05)
[2020-10-21] MEDS: ACIDOPHILUS/BULGARICUS CHEWABLE TABLET 1 TABLET PO (08:05)
[2020-10-21] MEDS: MAGNESIUM OXIDE 400 MG TABLET PO (08:05)
[2020-10-21] MEDS: FINASTERIDE 5 MG TABLET PO (08:05)
[2020-10-21] MEDS: SODIUM CHLORIDE 0.9% IV 1,000 ML 125 ML IV CONT (08:13)
[2020-10-21 09:56] LABS: Anion Gap 5 mmol/L (8-16); Blood Urea Nitrogen 21 mg/dL (9-20); Carbon Dioxide 19 mmol/L (22-30); Chloride 108 mmol/L (98-107); Estimated CRCL calculation 41 ml/min; Estimated Glomerular Filt Rate 53; Glucose 141 mg/dL (65-110); Potassium 3.7 mmol/L (3.4-5.0); Sodium 132 mmol/L (137-145)
--- NOTE | 2020-10-21 15:00 | PM.IMPN ---
Progress Note: A&P Assessment and Plan (1) Sepsis: Code(s): A41.9 - Sepsis, unspecified organism Status: Acute Assessment and Plan: 2/2 UTI fever, tachycardia, leukocytosis, and elevated lactic acid level POA Continue with IV levofloxacin (2) Urinary tract infection: Code(s): N39.0 - Urinary tract infection, site not specified Status: Acute Assessment and Plan: UC-->Gram negative bacilli Will wait sensitivity Treatment as above (3) Calculus of distal left ureter: Code(s): N20.1 - Calculus of ureter Status: Acute Assessment and Plan: S/p cystoscopy with left ureteral stent placement per Dr. Bae POD #2 (4) Elevated serum creatinine: Code(s): R79.89 - Other specified abnormal findings of blood chemistry Status: Acute Assessment and Plan: Improved Suspect 2/2 poor intake, ureter stone Cr 1.6-->1.5--> today IVF d/c'd Monitor (5) Benign prostatic hyperplasia: Code(s): N40.0 - Benign prostatic hyperplasia without lower urinary tract symptoms Status: Chronic Assessment and Plan: Continue home meds (6) Chronic obstructive pulmonary disease: Code(s): J44.9 - Chronic obstructive pulmonary disease, unspecified Status: Acute Assessment and Plan: No acute exacerbation Continue home inhalers (7) Crohn's disease: Code(s): K50.90 - Crohn's disease, unspecified, without complications Status: Acute Assessment and Plan: Stable Additional Plan Disposition: d/c home with [facility] pending recovery Subjective Date/time seen: 10/21/20 15:00 Interval history: pt seen and evaluated; no acute events; no new complaints; pain controlled Review of Systems Review of Systems: All systems reviewed & are unremarkable except as noted in HPI and below Exam Const: General: no acute distress, alert and awake Orientation/consciousness: patient oriented x3 HENMT: Head: normocephalic and atraumatic Ears: hearing grossly normal bilaterally and external ears normal Face and sinus: face symmetric Mouth: Yes Normal oral and palatal mucosa present Eyes: Pupils: Equal, round and reactive pupils present EOM: EOMs intact bilaterally Neck: Neck: full ROM, trachea midline and no JVD Thyroid: thyroid normal Chest: Chest palpation & inspection: normal inspection of the chest Resp: Effort & Inspection: normal respiratory effort Auscultation: clear to auscultation bilaterally Cardio: Jugular venous distension: no JVD Rate: regular rate Rhythm: regular rhythm Heart sounds: S1 normal heart sound present and S2 normal heart sound present GI: Inspection: other (ileostomy ) : General: Yes no CVA tenderness Back/Spine/Pelvis: Back: no CVA tenderness Skin: General skin exam: normal color Rashes: no rashes Neuro: General: patient oriented x3 and CN's II-XI intact bilaterally Cranial nerves: Yes Equal, round and reactive pupils present Speech: normal speech Psych: Appearance: grossly normal Affect: normal affect Judgement: Good judgement present (Psych) Objective Data Vital Signs Vital Signs: Vital Signs - 24 hr 10/20/20 15:17 10/20/20 20:00 10/21/20 06:00 Temperature 36.8 C 37.2 C Pulse Rate 76 70 Respiratory Rate 18 18 Blood Pressure 132/53 L 150/62 H Pulse Oximetry 96 96 96 Intake/Output Intake/Output: Intake & Output 10/18/20 10/19/20 10/20/20 10/21/20 23:59 23:59 23:59 23:59 Intake Total 3336 4780 1570 Output Total 800 3050 1575 Balance 2536 1730 -5 Meds/Results Medications: Active Medications Generic Name Dose Route Start Last Admin Trade Name Freq PRN Reason Stop Dose Admin Acetaminophen 650 mg 10/20/20 12:35 Acetaminophen 325 Mg Tablet PO Q4H PRN Mild Pain (1-3) or Fever Hydrocodone Bitart/Acetaminophen 1 tab 10/20/20 15:24 10/21/20 05:49 Hydrocodone/Acetaminophen (*Crx) 5-325 Mg Tablet PO 1 tab Q4H PRN Administration
[2020-10-22 07:43] LABS: Hematocrit 38.2 % (42.0-52.0); Hemoglobin 12.9 g/dL (14.0-18.0); Mean Corpuscular HGB Conc 33.8 g/dl (32-36); Mean Corpuscular Hemoglobin 31.1 pg (26-34); Mean Platelet Volume 9.2 fl (7.4-10.4); Platelet Count Result 175 k/mm3 (150-375); Red Blood Count 4.15 M/mm3 (4.6-6.20); Red Cell Distribution Width 12.3 % (11.5-14.5); White Blood Count 6.8 K/mm3 (4.5-10.0)
[2020-10-22 08:09] LABS: Anion Gap 9 mmol/L (8-16); Blood Urea Nitrogen 19 mg/dL (9-20); Calcium 8.6 mg/dL (8.4-10.2); Carbon Dioxide 18 mmol/L (22-30); Chloride 105 mmol/L (98-107); Estimated CRCL calculation 44 ml/min; Estimated Glomerular Filt Rate 59; Glucose 88 mg/dL (65-110); Potassium 3.7 mmol/L (3.4-5.0); Sodium 132 mmol/L (137-145)
[2020-10-22] MEDS: ACIDOPHILUS/BULGARICUS CHEWABLE TABLET 1 TABLET PO (08:39)
[2020-10-22] MEDS: TAMSULOSIN HCL 0.4 MG CAPSULE PO (08:40)
[2020-10-22] MEDS: FINASTERIDE 5 MG TABLET PO (08:40)
[2020-10-22] MEDS: FLUTICASONE PROPIONATE 0.05% NA SPR 16 GM BTL (*BKC) 1 SPRAY NASAL ×2 (08:40→17:05)
[2020-10-22] MEDS: MAGNESIUM OXIDE 400 MG TABLET PO (08:40)
[2020-10-22 14:00] VITALS: BP 122/60; PULSE 79; RESP 20; TEMP 36.9; O2SAT 98
--- NOTE | 2020-10-22 16:03 | PM.IMPN ---
Progress Note: A&P Assessment and Plan (1) Sepsis: Code(s): A41.9 - Sepsis, unspecified organism Status: Acute Assessment and Plan: 2/2 UTI fever, tachycardia, leukocytosis, and elevated lactic acid level POA Continue with IV levofloxacin (2) Urinary tract infection: Code(s): N39.0 - Urinary tract infection, site not specified Status: Acute Assessment and Plan: UC-->Pseudomonas aeruginosa Will wait sensitivity Treatment as above (3) Calculus of distal left ureter: Code(s): N20.1 - Calculus of ureter Status: Acute Assessment and Plan: S/p cystoscopy with left ureteral stent placement per Dr. Bae POD #3 (4) Elevated serum creatinine: Code(s): R79.89 - Other specified abnormal findings of blood chemistry Status: Acute Assessment and Plan: Improved Suspect 2/2 poor intake, ureter stone Cr 1.6-->1.5-->1.2 today S/p IVF Monitor (5) Benign prostatic hyperplasia: Code(s): N40.0 - Benign prostatic hyperplasia without lower urinary tract symptoms Status: Chronic Assessment and Plan: Continue home meds (6) Chronic obstructive pulmonary disease: Code(s): J44.9 - Chronic obstructive pulmonary disease, unspecified Status: Acute Assessment and Plan: No acute exacerbation Continue home inhalers (7) Crohn's disease: Code(s): K50.90 - Crohn's disease, unspecified, without complications Status: Acute Assessment and Plan: Stable Additional Plan Disposition: d/c home with [facility] pending recovery Subjective Date/time seen: 10/22/20 16:03 Interval history: pt seen and evaluated; no acute events; overall, he feels better and is improving; pain controlled Exam Const: General: no acute distress, alert and awake Orientation/consciousness: patient oriented x3 HENMT: Head: normocephalic and atraumatic Ears: hearing grossly normal bilaterally and external ears normal Face and sinus: face symmetric Mouth: Yes Normal oral and palatal mucosa present Eyes: Pupils: Equal, round and reactive pupils present EOM: EOMs intact bilaterally Neck: Neck: full ROM, trachea midline and no JVD Thyroid: thyroid normal Chest: Chest palpation & inspection: normal inspection of the chest Resp: Effort & Inspection: normal respiratory effort Auscultation: clear to auscultation bilaterally Cardio: Jugular venous distension: no JVD Rate: regular rate Rhythm: regular rhythm Heart sounds: S1 normal heart sound present and S2 normal heart sound present GI: Inspection: other (ileostomy ) : General: Yes no CVA tenderness Back/Spine/Pelvis: Back: no CVA tenderness Skin: General skin exam: normal color Rashes: no rashes Neuro: General: patient oriented x3 and CN's II-XI intact bilaterally Cranial nerves: Yes Equal, round and reactive pupils present Speech: normal speech Psych: Appearance: grossly normal Affect: normal affect Judgement: Good judgement present (Psych) Objective Data Vital Signs Vital Signs: Vital Signs - 24 hr 10/22/20 14:00 Temperature 36.9 C Pulse Rate 79 Respiratory Rate 20 Blood Pressure 122/60 Pulse Oximetry 98 Intake/Output Intake/Output: Intake & Output 10/19/20 10/20/20 10/21/20 10/22/20 23:59 23:59 23:59 23:59 Intake Total 3336 4780 3010 1230 Output Total 800 3050 2325 2400 Balance 2536 1730 685 -1170 Meds/Results Medications: Active Medications Generic Name Dose Route Start Last Admin Trade Name Freq PRN Reason Stop Dose Admin Acetaminophen 650 mg 10/20/20 12:35 Acetaminophen 325 Mg Tablet PO Q4H PRN Mild Pain (1-3) or Fever Hydrocodone Bitart/Acetaminophen 1 tab 10/20/20 15:24 10/21/20 17:59 Hydrocodone/Acetaminophen (*Crx) 5-325 Mg Tablet PO 1 tab Q4H PRN Administration Pain Rated 4-6 Finasteride 5 mg 10/20/20 09:00 10/22/20 08:40 Finasteride 5 Mg Tablet PO 5 mg DAILY MATHEW Administration Flu
[2020-10-22 21:13] VITALS: BP 112/55; PULSE 76; RESP 18; TEMP 36.4; O2SAT 94
[2020-10-23 04:25] VITALS: BP 166/72; PULSE 77; RESP 20; TEMP 36.2; O2SAT 97
[2020-10-23] MEDS: ACETAMINOPHEN 325 MG TABLET 650 MG PO (06:55)
[2020-10-23 07:29] LABS: Anion Gap 5 mmol/L (8-16); Blood Urea Nitrogen 24 mg/dL (9-20); Calcium 8.8 mg/dL (8.4-10.2); Carbon Dioxide 19 mmol/L (22-30); Chloride 108 mmol/L (98-107); Estimated CRCL calculation 44 ml/min; Estimated Glomerular Filt Rate 59; Glucose 99 mg/dL (65-110); Potassium 3.6 mmol/L (3.4-5.0); Sodium 132 mmol/L (137-145)
[2020-10-23] MEDS: FINASTERIDE 5 MG TABLET PO (09:16)
[2020-10-23] MEDS: ACIDOPHILUS/BULGARICUS CHEWABLE TABLET 1 TABLET PO (09:16)
[2020-10-23] MEDS: FLUTICASONE PROPIONATE 0.05% NA SPR 16 GM BTL (*BKC) 1 SPRAY NASAL ×2 (09:16→16:58)
[2020-10-23] MEDS: MAGNESIUM OXIDE 400 MG TABLET PO (09:16)
[2020-10-23] MEDS: TAMSULOSIN HCL 0.4 MG CAPSULE PO (09:16)
[2020-10-23 10:00] VITALS: BP 130/64; PULSE 75; RESP 20; TEMP 36.7; O2SAT 97
--- NOTE | 2020-10-23 11:50 | PC.NURSE ---
Patient c/o mid sternal chest pressure, denies pain states feels short of breath. b/p 142/67 pulse 54 resp 20 100% on room air. states may have had this pain along time ago, doesn't remember, denies any radiation of pain. Dr. Whalen here examined patient orders received and recorded.
--- NOTE | 2020-10-23 12:40 | PM.IMPN ---
Progress Note: A&P Assessment and Plan (1) Sepsis: Code(s): A41.9 - Sepsis, unspecified organism Status: Acute Assessment and Plan: 2/2 UTI fever, tachycardia, leukocytosis, and elevated lactic acid level POA Continue with IV levofloxacin (2) Urinary tract infection: Code(s): N39.0 - Urinary tract infection, site not specified Status: Acute Assessment and Plan: UC-->Pseudomonas aeruginosa Will wait sensitivity Treatment as above (3) Calculus of distal left ureter: Code(s): N20.1 - Calculus of ureter Status: Acute Assessment and Plan: S/p cystoscopy with left ureteral stent placement per Dr. Bae POD #3 (4) Elevated serum creatinine: Code(s): R79.89 - Other specified abnormal findings of blood chemistry Status: Acute Assessment and Plan: Stable Suspect 2/2 poor intake, ureter stone Cr 1.6-->1.5-->1.2 today S/p IVF Monitor (5) Benign prostatic hyperplasia: Code(s): N40.0 - Benign prostatic hyperplasia without lower urinary tract symptoms Status: Chronic Assessment and Plan: Continue home meds (6) Chronic obstructive pulmonary disease: Code(s): J44.9 - Chronic obstructive pulmonary disease, unspecified Status: Acute Assessment and Plan: No acute exacerbation Continue home inhalers (7) Crohn's disease: Code(s): K50.90 - Crohn's disease, unspecified, without complications Status: Acute Assessment and Plan: Stable Additional Plan Disposition: d/c home with [facility] tomorrow Subjective Date/time seen: 10/23/20 12:40 Interval history: pt seen and evaluated; no acute events; continues to improve clinically; pain controlled Review of Systems Review of Systems: All systems reviewed & are unremarkable except as noted in HPI and below Exam Const: General: no acute distress, alert and awake Orientation/consciousness: patient oriented x3 HENMT: Head: normocephalic and atraumatic Ears: hearing grossly normal bilaterally and external ears normal Face and sinus: face symmetric Mouth: Yes Normal oral and palatal mucosa present Eyes: Pupils: Equal, round and reactive pupils present EOM: EOMs intact bilaterally Neck: Neck: full ROM, trachea midline and no JVD Thyroid: thyroid normal Chest: Chest palpation & inspection: normal inspection of the chest Resp: Effort & Inspection: normal respiratory effort Auscultation: clear to auscultation bilaterally Cardio: Jugular venous distension: no JVD Rate: regular rate Rhythm: regular rhythm Heart sounds: S1 normal heart sound present and S2 normal heart sound present GI: Inspection: other (ileostomy ) : General: Yes no CVA tenderness Back/Spine/Pelvis: Back: no CVA tenderness Skin: General skin exam: normal color Rashes: no rashes Neuro: General: patient oriented x3 and CN's II-XI intact bilaterally Cranial nerves: Yes Equal, round and reactive pupils present Speech: normal speech Psych: Appearance: grossly normal Affect: normal affect Judgement: Good judgement present (Psych) Objective Data Vital Signs Vital Signs: Vital Signs - 24 hr 10/22/20 14:00 10/22/20 21:13 10/23/20 04:25 Temperature 36.9 C 36.4 C 36.2 C L Pulse Rate 79 76 77 Respiratory Rate 20 18 20 Blood Pressure 122/60 112/55 L 166/72 H Pulse Oximetry 98 94 97 10/23/20 10:00 Temperature 36.7 C Pulse Rate 75 Respiratory Rate 20 Blood Pressure 130/64 Pulse Oximetry 97 Intake/Output Intake/Output: Intake & Output 10/20/20 10/21/20 10/22/20 10/23/20 23:59 23:59 23:59 23:59 Intake Total 4780 3010 2370 750 Output Total 3050 2325 5100 1000 Balance 2850 685 -2730 -250 Meds/Results Medications: Active Medications Generic Name Dose Route Start Last Admin Trade Name Freq PRN Reason Stop Dose Admin Acetaminophen 650 mg 10/20/20 12:35 10/23/20 06:55 Acetaminophen 325 Mg Tablet PO 650 mg Q4H PRN Administration M
[2020-10-23 14:00] VITALS: BP 138/70; PULSE 83; RESP 20; TEMP 36.9; O2SAT 98
[2020-10-23] MEDS: CIPROFLOXACIN 250 MG TABLET 750 MG PO (17:00)
[2020-10-23 20:52] VITALS: BP 132/60; PULSE 94; RESP 18; TEMP 36.4; O2SAT 97
[2020-10-24 06:00] VITALS: BP 122/85; PULSE 94; RESP 18; TEMP 36.7; O2SAT 97
[2020-10-24] MEDS: CIPROFLOXACIN 250 MG TABLET 750 MG PO ×2 (06:07→22:44)
--- NOTE | 2020-10-24 06:38 | WPDUROPN2 ---
Progress Note: A&P Assessment and Plan (1) Calculus of distal left ureter: Code(s): N20.1 - Calculus of ureter Status: Acute Assessment and Plan: Stent in place. Definitive stone management as an outpatient. Voiding trial before discharge home (2) Acute UTI: Code(s): N39.0 - Urinary tract infection, site not specified Status: Acute Assessment and Plan: Culture some Pseudomonas. Home on culture specific antibiotics for 2 weeks. Subjective Subjective Date/Time Seen: 10/24/20 06:38 Resting comfortably. Odell catheter in place. Urine culture shows Pseudomonas. Review of Systems Review of Systems: All systems reviewed & are unremarkable except as noted in HPI and below Exam Const: General: cooperative, healthy appearing and comfortable Eyes: General: appearance normal, both eyes and all related structures Resp: Effort & Inspection: normal respiratory effort and able to speak in complete sentences Urinary Catheter: Urinary Catheter: patent and draining Back/Spine/Pelvis: Back: no CVA tenderness Skin: General skin exam: normal color Objective Data Vital Signs Vital Signs: Vital Signs - 24 hr 10/23/20 10:00 10/23/20 14:00 10/23/20 20:52 Temperature 98.0 F 98.4 F 97.6 F Pulse Rate 75 83 94 Respiratory Rate 20 20 18 Blood Pressure 130/64 138/70 132/60 Pulse Oximetry 97 98 97 Intake/Output Intake/Output: Intake & Output 10/21/20 10/22/20 10/23/20 10/24/20 23:59 23:59 23:59 23:59 Intake Total 3010 2370 1800 240 Output Total 2325 5100 2700 500 Balance 685 -2730 -900 -260 Meds/Results Medications: Active Medications Generic Name Dose Route Start Last Admin Trade Name Freq PRN Reason Stop Dose Admin Acetaminophen 650 mg 10/20/20 12:35 10/23/20 06:55 Acetaminophen 325 Mg Tablet PO 650 mg Q4H PRN Administration Mild Pain (1-3) or Fever Hydrocodone Bitart/Acetaminophen 1 tab 10/20/20 15:24 10/21/20 17:59 Hydrocodone/Acetaminophen (*Crx) 5-325 Mg Tablet PO 1 tab Q4H PRN Administration Pain Rated 4-6 Ciprofloxacin 750 mg 10/23/20 18:00 10/24/20 06:07 Ciprofloxacin 250 Mg Tablet PO 750 mg Q12H MATHEW Administration Finasteride 5 mg 10/20/20 09:00 10/23/20 09:16 Finasteride 5 Mg Tablet PO 5 mg DAILY MATHEW Administration Fluticasone Propionate 1 spray 10/19/20 17:00 10/23/20 16:58 Fluticasone Propionate 0.05% Na Spr 16 Gm Btl (*Bkc) NASAL 1 spray BID MATHEW Administration Lactobacillus Acidophilus 1 tablet 10/20/20 09:00 10/23/20 09:16 Acidophilus/Bulgaricus Chewable Tablet PO 1 tablet DAILY MATHEW Administration Magnesium Oxide 400 mg 10/20/20 09:00 10/23/20 09:16 Magnesium Oxide 400 Mg Tablet PO 400 mg DAILY MATHEW Administration Non-Formulary Medication 99 mg 10/20/20 09:00 Potassium PO 11/19/20 09:01 DAILY MATHEW Tamsulosin HCl 0.4 mg 10/20/20 09:00 10/23/20 09:16 Tamsulosin Hcl 0.4 Mg Capsule PO 0.4 mg DAILY MATHEW Administration Radiology Results: ITS Impressions Head CT 10/19/20 07:25 IMPRESSION: Nonspecific diminished attenuation of the cerebral white matter, likely due to chronic small vessel ischemic changes No acute intracranial finding or skull fracture Cervical Spine CT 10/19/20 07:39 IMPRESSION: Cervical spondylosis; no fracture or dislocation or locked facet Abdomen/Pelvis CT 10/19/20 07:42 IMPRESSION: 3.8 x 5 mm distal left ureteral obstructing calculus with moderately prominent left hydroureteronephrosis 1. Punctate nonobstructing right renal calculus Several 3 mm smaller left renal nonobstructing calculi Chronic pancreatitis Status post colectomy, right ileostomy Forearm X-Ray 10/19/20 08:07 IMPRESSION: No significant abnormality Retrograde Pyelogram 10/19/20 16:02 IMPRESSION: 1. Stone in distal left ureter with moderate left hydronephrosis. 2. Left internal ureteral stent in expected pos
[2020-10-24] MEDS: TAMSULOSIN HCL 0.4 MG CAPSULE PO (09:02)
[2020-10-24] MEDS: MAGNESIUM OXIDE 400 MG TABLET PO (09:02)
[2020-10-24] MEDS: ACIDOPHILUS/BULGARICUS CHEWABLE TABLET 1 TABLET PO (09:02)
[2020-10-24] MEDS: FINASTERIDE 5 MG TABLET PO (09:02)
[2020-10-24] MEDS: FLUTICASONE PROPIONATE 0.05% NA SPR 16 GM BTL (*BKC) 1 SPRAY NASAL ×2 (09:02→22:45)
[2020-10-24 14:00] VITALS: BP 127/80; PULSE 111; RESP 20; TEMP 35.9; O2SAT 95
--- NOTE | 2020-10-24 16:13 | PM.IMPN ---
Progress Note: A&P Assessment and Plan (1) Sepsis: Code(s): A41.9 - Sepsis, unspecified organism Status: Acute Assessment and Plan: 2/2 UTI fever, tachycardia, leukocytosis, and elevated lactic acid level POA S/p IV levofloxacin, now on cipro PO (2) Urinary tract infection: Code(s): N39.0 - Urinary tract infection, site not specified Status: Acute Assessment and Plan: UC-->Pseudomonas aeruginosa Treatment as above (3) Calculus of distal left ureter: Code(s): N20.1 - Calculus of ureter Status: Acute Assessment and Plan: S/p cystoscopy with left ureteral stent placement per Dr. Bae POD #4 (4) Elevated serum creatinine: Code(s): R79.89 - Other specified abnormal findings of blood chemistry Status: Acute Assessment and Plan: Stable Suspect 2/2 poor intake, ureter stone S/p IVF Monitor (5) Benign prostatic hyperplasia: Code(s): N40.0 - Benign prostatic hyperplasia without lower urinary tract symptoms Status: Chronic Assessment and Plan: Continue home meds (6) Chronic obstructive pulmonary disease: Code(s): J44.9 - Chronic obstructive pulmonary disease, unspecified Status: Acute Assessment and Plan: No acute exacerbation Continue home inhalers (7) Crohn's disease: Code(s): K50.90 - Crohn's disease, unspecified, without complications Status: Acute Assessment and Plan: Stable Additional Plan Disposition: d/c home with [facility] tomorrow after voiding trial Subjective Date/time seen: 10/24/20 16:13 Interval history: pt seen and evaluated; no acute events; has improved; voiding trial will be initiated Review of Systems Review of Systems: All systems reviewed & are unremarkable except as noted in HPI and below Exam Const: General: no acute distress, alert and awake Orientation/consciousness: patient oriented x3 HENMT: Head: normocephalic and atraumatic Ears: hearing grossly normal bilaterally and external ears normal Face and sinus: face symmetric Mouth: Yes Normal oral and palatal mucosa present Eyes: Pupils: Equal, round and reactive pupils present EOM: EOMs intact bilaterally Neck: Neck: full ROM, trachea midline and no JVD Thyroid: thyroid normal Chest: Chest palpation & inspection: normal inspection of the chest Resp: Effort & Inspection: normal respiratory effort Auscultation: clear to auscultation bilaterally Cardio: Jugular venous distension: no JVD Rate: regular rate Rhythm: regular rhythm Heart sounds: S1 normal heart sound present and S2 normal heart sound present GI: Inspection: other (ileostomy ) : General: Yes no CVA tenderness Back/Spine/Pelvis: Back: no CVA tenderness Skin: General skin exam: normal color Rashes: no rashes Neuro: General: patient oriented x3 and CN's II-XI intact bilaterally Cranial nerves: Yes Equal, round and reactive pupils present Speech: normal speech Psych: Appearance: grossly normal Affect: normal affect Judgement: Good judgement present (Psych) Objective Data Vital Signs Vital Signs: Vital Signs - 24 hr 10/23/20 20:52 10/24/20 06:00 10/24/20 14:00 Temperature 36.4 C 36.7 C 35.9 C L Pulse Rate 94 94 111 H Respiratory Rate 18 18 20 Blood Pressure 132/60 122/85 127/80 Pulse Oximetry 97 97 95 Intake/Output Intake/Output: Intake & Output 10/21/20 10/22/20 10/23/20 10/24/20 23:59 23:59 23:59 23:59 Intake Total 3010 2370 1800 1260 Output Total 2325 5100 2700 1450 Balance 063 -7983 -900 -190 Meds/Results Medications: Active Medications Generic Name Dose Route Start Last Admin Trade Name Freq PRN Reason Stop Dose Admin Acetaminophen 650 mg 10/20/20 12:35 10/23/20 06:55 Acetaminophen 325 Mg Tablet PO 650 mg Q4H PRN Administration Mild Pain (1-3) or Fever Hydrocodone Bitart/Acetaminophen 1 tab 10/20/20 15:24 10/21/20 17:59 Hydrocodone/Acetaminophen (*Crx) 5-325 Mg
[2020-10-24 19:55] VITALS: BP 119/55; PULSE 104; RESP 20; TEMP 36.3; O2SAT 97
[2020-10-24 20:00] VITALS: PULSE 104; RESP 20; O2SAT 97
[2020-10-25 06:13] VITALS: BP 128/71; PULSE 93; RESP 17; TEMP 36.1; O2SAT 97
[2020-10-25] MEDS: CIPROFLOXACIN 250 MG TABLET 750 MG PO (06:47)
[2020-10-25 07:34] LABS: Anion Gap 11 mmol/L (8-16); Blood Urea Nitrogen 34 mg/dL (9-20); Calcium 9.2 mg/dL (8.4-10.2); Carbon Dioxide 20 mmol/L (22-30); Chloride 102 mmol/L (98-107); Estimated CRCL calculation 41 ml/min; Estimated Glomerular Filt Rate 53; Glucose 121 mg/dL (65-110); Potassium 4.2 mmol/L (3.4-5.0); Sodium 133 mmol/L (137-145)
[2020-10-25] MEDS: FINASTERIDE 5 MG TABLET PO (09:22)
[2020-10-25] MEDS: ACIDOPHILUS/BULGARICUS CHEWABLE TABLET 1 TABLET PO (09:22)
[2020-10-25] MEDS: TAMSULOSIN HCL 0.4 MG CAPSULE PO (09:22)
[2020-10-25] MEDS: FLUTICASONE/UMECLIDIN/VILANTER 100-62.5-25 MCG ELLIPTA 1 PUFF INHALATION (09:22)
[2020-10-25] MEDS: MAGNESIUM OXIDE 400 MG TABLET PO (09:22)
[2020-10-25] MEDS: FLUTICASONE PROPIONATE 0.05% NA SPR 16 GM BTL (*BKC) 1 SPRAY NASAL (09:22)
--- NOTE | 2020-10-25 12:29 | PM.DS ---
DS: Admitting Diagnosis Admitting Diagnosis UTI sepsis DS: Discharge Diagnosis Discharge Diagnosis (1) Sepsis: Code(s): A41.9 - Sepsis, unspecified organism Status: Acute Assessment and Plan: Resolved, 2/2 UTI -was discharged on cipro (culture growing Pseudomonas but sensitivities are not able to be performed). Clinically the patient is feeling much better (2) Urinary tract infection: Code(s): N39.0 - Urinary tract infection, site not specified Status: Acute Assessment and Plan: UC-->Pseudomonas aeruginosa Treatment as above (3) Calculus of distal left ureter: Code(s): N20.1 - Calculus of ureter Status: Acute Assessment and Plan: S/p cystoscopy with left ureteral stent placement per Dr. Bae -follow-up outpatient for removal (4) Elevated serum creatinine: Code(s): R79.89 - Other specified abnormal findings of blood chemistry Status: Acute Assessment and Plan: Resolved (5) Benign prostatic hyperplasia: Code(s): N40.0 - Benign prostatic hyperplasia without lower urinary tract symptoms Status: Chronic Assessment and Plan: continue tamsulosin (6) Chronic obstructive pulmonary disease: Code(s): J44.9 - Chronic obstructive pulmonary disease, unspecified Status: Acute Assessment and Plan: No acute exacerbation (7) Crohn's disease: Code(s): K50.90 - Crohn's disease, unspecified, without complications Status: Acute Assessment and Plan: Stable DS: Summary Hospital Course Hospital Course: Date of service October 25, 2020 Patient is a 79-year-old male with a past medical history of Crohn's disease and COPD who presented emergency room for fall, weakness, body aches, shortness of breath and upset stomach. Vitals in the ER were temperature 100.9?, pulse 112, respiratory rate 28, blood pressure 160/82, pulse ox 96 on room air. Initial white blood cell count 19.8, hemoglobin 15.6, hematocrit 48.2, platelets 181. BMP showed AGATHA of creatinine 1.6. UA suspicious for UTI. Abdominal pelvis CT showed a 3.8 x 5 distal left ureteral obstructing stone with moderate left hydronephrosis. Since he fell, head CT showed no acute pathology or skull fracture. CT of the cervical spine showed no fracture or dislocation. Patient was admitted to the hospitalist service and started on Levaquin. Urine culture grew Pseudomonas but sensitivities were not able to be performed. Blood cultures grew negative. The patient improved throughout his stay. He underwent cystoscopy with left ureteral stent insertion on October 19. This improved his symptoms and he did well with this. Urology was consulted and recommended outpatient Cipro and follow-up outpatient for stone extraction. The patient's weakness improved with treatment and he was a standby cyst with therapy. He did have a skin tear to the left arm which he [facility] and is going to use Xeroform and gauze and monitor this outpatient. They discharge he was feeling much better and ready to go. He was educated about the worrisome signs and symptoms to come back to emergency room for and was discharged stable condition. Time Spent with Patient Time attestation: Total time spent providing and/or coordinating discharge services: Exam Narrative: General: Well developed well nourished patient in NAD HEENT: normocephalic Neck: supple Neuro: Alert and oriented x4 CV:RRR Resp:CTA Abd: Soft, non distended. No pain to palpation. Positive bowel sounds. Colostomy in place Extremities: No swelling, erythema, or pain to palpation to lower extremities. Skin tear to the left arm. DS: Data Data Completed and Pending Labs on day of discharge: Labs from last 24 hours 10/25/20 06:30 Sodium 133 L Potassium 4.2 Chloride 102 Carbon Dioxide 20 L Anion Gap 11 BUN 34 H D Creatinine 1.30 Estim Creat Clear C
[2020-10-25 13:39] LABS: Creatine Kinase 34 U/L (55-170)
[2020-10-25 14:00] VITALS: BP 142/79; PULSE 100; RESP 18; TEMP 36.6; O2SAT 94
== END 2020-10-25 16:05 | disposition home or self-care (01) | DRG 854 ==
LOC: ANHED 08:35 → ANH3MEDSUR 14:50
PROVIDERS: Nurse Practitioner Adult Health; Physician Assistant; Urology; Admitting Provider Internal Medicine; Emergency Provider General Practice; PCP Internal Medicine; Visit Provider Physician Assistant
PROC: 0T778DZ Dilation of Left Ureter with Intraluminal Device, Via Natural or Artificial Opening Endoscopic (ICD-10-PCS; CPT 52352; principal; 2020-10-19 13:30)
DX: A41.9 Sepsis, unspecified organism (principal); K50.90 Crohn's disease, unspecified, without complications; N13.6 Pyonephrosis; B96.5 Pseudomonas (aeruginosa) (mallei) (pseudomallei) as the cause of diseases classified elsewhere; R79.89 Other specified abnormal findings of blood chemistry; N40.0 Benign prostatic hyperplasia without lower urinary tract symptoms; J44.9 Chronic obstructive pulmonary disease, unspecified; Z87.891 Personal history of nicotine dependence; Z93.2 Ileostomy status; Z79.899 Other long term (current) drug therapy
CPT/HCPCS: 36415; 70450; 71045; 72125; 73090; 74176; 74420; 80048; 80053; 81001; 82550; 83605; 83735; 83880; 85025; 85027; 85610; 85730; 86140; 87040; 87077; 87086; 87088; 90471; 90715; 93005; 96361; 96365; 96367; 97161; 99285; A9270; C1769; C1887; C2617; J0131; J1956; J2370; J2405; J2704; J3475; J7030; J7120; Q9966

== ENCOUNTER 2020-11-08 01:27 | Day surgery (SDC) | payer MEDICARE, OTHER, SELFPAY ==
[2020-10-31 14:43] VITALS: BMI 25.2
--- NOTE | 2020-11-07 13:51 | WPDANESEPPF ---
Anes - Initial Pre Proc Eval Procedure: Operation Date: 11/08/20 08:30 Proposed Procedures p Cystoscopy, Left Ureteroscopy, Left Retrograde Pyelogram, Left Stone Extraction, Left Stent Exchange, - Jace Garcia MD s Possible Holmium Laser Procedure - Jace Garcia MD Date/Time: 11/07/20 13:51 Surgeon: Justin Bae MD Pre Op Diagnosis: left kidney stone Patient Data Age: 79 Gender: M Height: 1.7 m Weight: 73 kg Allergies Allergy/AdvReac Type Severity Reaction Status Date / Time clindamycin Allergy Unknown Itching Verified 10/31/20 14:36 Iodinated Contrast Media Allergy Unknown Itching Verified 11/07/20 13:58 Penicillins Allergy Unknown Anaphylactic Verified 10/31/20 14:36 Shock prednisone Allergy DYSPNEA, Verified 10/31/20 14:36 Dizziness Home Medications Medication Instructions Recorded Confirmed Type finasteride 5 mg tablet 5 mg PO DAILY 01/20/20 10/31/20 History fluticasone propionate 50 1 spray INTRANASAL DAILY 01/20/20 10/31/20 History mcg/actuation nasal spray,suspension lactobacillus combination no.8 3 250 mmu cells PO DAILY cap 01/20/20 10/31/20 History billion cell capsule tamsulosin 0.4 mg capsule 0.4 mg PO DAILY 01/20/20 10/31/20 History magnesium oxide 400 mg PO DAILY 07/21/20 10/31/20 History potassium 99 mg tablet 99 mg PO DAILY tablet 07/21/20 10/31/20 History Pentasa 500 mg PO TID 10/19/20 10/31/20 History Trelegy Ellipta 1 inh INHALATION DAILY 10/19/20 10/31/20 History albuterol sulfate 1 puff INHALATION QID PRN 10/19/20 10/31/20 History lorazepam 0.5 mg PO DAILY PRN 10/19/20 10/31/20 History trazodone 50 mg PO HS PRN 10/19/20 10/31/20 History ciprofloxacin HCl 500 mg PO Q12H 9 Days #18 tablet 10/25/20 10/31/20 Rx PMFSH Past Medical History Medical History (Updated 11/07/20 @ 13:51 by Stanton Cline DO) Anxiety Benign prostatic hyperplasia Chronic low back pain Chronic obstructive pulmonary disease Crohn's disease Depression with anxiety Gastroesophageal reflux disease Ileostomy in place Migraine headache Osteoarthritis Surgical History Surgical History History of exploratory laparotomy (02/03/13) Exploratory laparotomy with extensive adhesiolysis, partial small-bowel resection, takedown and ileostomy with creation of new ileostomy and 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 Status post colectomy (1991) Total colectomy in 1991 with subsequent ileostomy. Family History Family History Mother Family history of malignant neoplasm of breast in first degree relative Family history of Alzheimer's disease Family history of arthritis Breast cancer Father Cerebrovascular accident Family history of coronary artery disease Social History Social History (Updated 10/19/20 @ 21:48 by Tressa Krueger PA-C) Social History: Surrogate decision maker: Taylor Davis, friend. Code status: Full code. Smoking packs per day: 1 Smoking cigarettes per day: 20.0 Years smoked: 45 Smoking pack-years: 45.00 Smoking status: Former smoker Tobacco type: cigarettes Smoking end date: 09/08/09 Alcohol intake: current Drinks per week: 2 Substance use: never Living arrangements: alone Additional living arrangements comments: The patient lives alone in [place]. He has no children. Has been for over many years. 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 Spiritual care concerns: No Anes - Eval Final PreProcedure Day of Procedure 11/07/20 13:51 Patient weight: overweight Heart: regular rate and rhythm Lungs: clear to auscultation and normal air movement Airway: Mallampati scale class II Neurological: alert and oriented Last oral intake: >/= 8 hours ASA classification: III Emergent: no Anesthetic plan: proceed Anesthesia type
[2020-11-08 06:55] VITALS: BP 100/78; PULSE 115; RESP 20; TEMP 36.6; O2SAT 96
[2020-11-08 07:31] LABS: Add Urine Microscopic? YES; Appearance Urine Cloudy (Clear); Bilirubin Urine Negative (Negative); Blood Urine 2+ (Negative); Color Urine Yellow (Yellow); Glucose Urine UA Negative (Negative); Ketones Urine Negative (Negative); Leukocyte Esterase Ur 3+ LEU/UL (NEGATIVE); Mucus Urine Rare /lpf; Nitrate Urine Positive (Negative); Protein Urine 2+ mg/dL (Negative); RBC Urine 21-50 /hpf (0-2); Specific Grav Ur 1.019 (1.001-1.035); Squamous Epithelial Cell Urine Rare /hpf (Few); Urobilinogen Urine Negative mg/dL (<2.0); WBC Clumps Urine Present /HPF; WBC Urine >75 /hpf (0-3)
--- NOTE | 2020-11-08 07:41 | SUR.PREOP ---
DR VANCE HERE, UA POSITIVE. URINE CULTURE ORDERED. SURGERY CANCELLED
== END 2020-11-08 08:18 | disposition home or self-care (01) ==
PROVIDERS: PCP Internal Medicine; Visit Provider Urology
PROC: (CPT 52352; principal; 2020-11-08 08:30)
DX: N20.1 Calculus of ureter (principal); R82.79 Other abnormal findings on microbiological examination of urine; Z53.09 Procedure and treatment not carried out because of other contraindication
CPT/HCPCS: 81001; 87077; 87086; 87088; 87186; 99212; G0463; J3010

== ENCOUNTER 2020-11-18 14:08 | Inpatient (IN) | payer MEDICARE, OTHER, SELFPAY ==
--- NOTE | ~2020-11-18 | CT_ITS ---
EXAMINATION: CT abdomen pelvis wo con DATE: 11/18/2020 17:38 INDICATION: Renal infection. Kidney stones. TECHNIQUE: Computed tomography (CT) of the abdomen and pelvis was performed without intravenous contr ast. The dose-length product was 186.72 mGy-cm. Automated exposure control and iterative reconstructi on technique were employed. COMPARISON: CT dated 10/19/2020. FINDINGS: Heart size normal. No significant pleural or pericardial effusion. There is a left internal ureteral stent in expected position. No renal hydronephrosis. Punctate 2 mm nonobstructing left tremayne l stone. Status post partial colectomy with right upper abdominal ileostomy. There is chronic pancrea titis. The liver, spleen, adrenal glands are unremarkable. Nonobstructive bowel gas pattern. IMPRESSION: 1. No acute abdominal abnormality. 2: Left internal ureteral stent in expected position. Nonobstructing left nephrolithiasis. Reviewed, dictated and finalized at location A. IMPRESSION: 1. No acute abdominal abnormality. 2: Left internal ureteral stent in expected position. Nonobstructing left nephr olithiasis.
[2020-11-18 14:10] VITALS: BP 116/68; PULSE 114; RESP 18; TEMP 37.1; O2SAT 97
[2020-11-18 14:43] LABS: Basophils Percent Auto 0.4 % (0.2-1.2); Eosinophils Absolute Auto 0.1 K/mm3 (0-0.3); Eosinophils Percent Auto 0.9 % (0-4.4); Hemoglobin 15.8 g/dL (14.0-18.0); Immature Granulocyte Absolute 0.06 K/mm3 (0.00-0.031); Immature Granulocyte Percent A 0.6 % (0-0.5); Lymphocytes Absolute Auto 2.41 K/mm3 (0.9-3.2); Lymphocytes Percent Auto 24.1 % (18.3-44.2); Mean Corpuscular HGB Conc 35.1 g/dl (32-36); Mean Corpuscular Hemoglobin 31.5 pg (26-34); Mean Corpuscular Volume 89.8 fl (80-100); Mean Platelet Volume 8.1 fl (7.4-10.4); Monocytes Absolute Auto 0.9 K/mm3 (0.1-0.6); Monocytes Percent Auto 8.7 % (2.6-8.5); Neutrophils Absolute Auto 6.6 K/mm3 (1.3-6.7); Neutrophils Percent Auto 65.3 % (45.5-73.1); Platelet Count Result 316 k/mm3 (150-375); Red Blood Count 5.01 M/mm3 (4.6-6.20); Red Cell Distribution Width 12.8 % (11.5-14.5)
[2020-11-18 14:51] LABS: Alanine Aminotransferase 36 U/L (4-50); Albumin Level 4.3 g/dL (3.5-5.1); Alkaline Phosphatase 153 U/L (38-126); Anion Gap 11 mmol/L (8-16); Aspartate Amino Transferase 30 U/L (17-59); Bilirubin,Total 0.7 mg/dL (0.2-1.3); Blood Urea Nitrogen 46 mg/dL (9-20); Carbon Dioxide 15 mmol/L (22-30); Chloride 99 mmol/L (98-107); Estimated CRCL calculation 31 ml/min; Estimated Glomerular Filt Rate 39; Glucose 143 mg/dL (65-110); Lipase 340 U/L (23-300); Potassium 3.4 mmol/L (3.4-5.0); Sodium 125 mmol/L (137-145)
--- NOTE | 2020-11-18 16:19 | ED.MALEGU ---
HPI - Male Genitourinary General Chief complaint: Urogenital-Male Stated complaint: kidney infection, n/v Time Seen by Provider: 11/18/20 16:08 Source: patient Limitations: no limitations History of Present Illness HPI Narrative: 79 years old white male came from home, lives with the family complaining of flank pain for the last 2 days, associated with dry heaves and general weakness. History of urinary tract infection patient denies any fever, chills, vomiting Related Data Home Medications Medication Instructions Recorded Confirmed finasteride 5 mg tablet 5 mg PO DAILY 01/20/20 10/31/20 fluticasone propionate 50 1 spray INTRANASAL DAILY 01/20/20 10/31/20 mcg/actuation nasal spray,suspension lactobacillus combination no.8 3 250 mmu cells PO DAILY cap 01/20/20 10/31/20 billion cell capsule tamsulosin 0.4 mg capsule 0.4 mg PO DAILY 01/20/20 10/31/20 magnesium oxide 400 mg PO DAILY 07/21/20 10/31/20 potassium 99 mg tablet 99 mg PO DAILY tablet 07/21/20 10/31/20 Pentasa 500 mg PO TID 10/19/20 10/31/20 Trelegy Ellipta 1 inh INHALATION DAILY 10/19/20 10/31/20 albuterol sulfate 1 puff INHALATION QID PRN 10/19/20 10/31/20 lorazepam 0.5 mg PO DAILY PRN 10/19/20 10/31/20 trazodone 50 mg PO HS PRN 10/19/20 10/31/20 Allergies Allergy/AdvReac Type Severity Reaction Status Date / Time clindamycin Allergy Unknown Itching Verified 10/31/20 14:36 Iodinated Contrast Media Allergy Unknown Itching Verified 11/07/20 13:58 Penicillins Allergy Unknown Anaphylactic Verified 10/31/20 14:36 Shock prednisone Allergy DYSPNEA, Verified 10/31/20 14:36 Dizziness Review of Systems Review of Systems: CONSTITUTIONAL: Denies fever, chills, or sweats. EYES: Denies visual changes, redness, or discharge. ENT: Denies rhinorrhea, congestion, sore throat, or otalgia. CARDIOVASCULAR: Denies chest pain, palpitations, or edema. RESPIRATORY: Denies cough or dyspnea. GASTROINTESTINAL: Denies abdominal pain, nausea, vomiting, or diarrhea. GENITOURINARY: Denies dysuria or hematuria. SKIN: Denies rash or itching. MUSCULOSKELETAL: Denies back pain, joint pain, or myalgia. NEUROLOGIC: Denies headache, numbness, or weakness. PSYCHIATRIC: Denies anxiety or depression. 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 Status post colectomy (1991) Total colectomy in 1991 with subsequent ileostomy. Family History Family History Mother Family history of malignant neoplasm of breast in first degree relative Family history of Alzheimer's disease Family history of arthritis Breast cancer Father Cerebrovascular accident Family history of coronary artery disease Social History Social History Social History: Surrogate decision maker: Taylor Davis, friend. Code status: Full code. Smoking packs per day: 1 Smoking cigarettes per day: 20.0 Years smoked: 45 Smoking pack-years: 45.00 Smoking status: Former smoker Tobacco type: cigarettes Smoking end date: 09/08/09 Alcohol intake: current Drinks per week: 2 Substance use: never Additional living arrangements comments: The patient lives alone in [place]. He has no children. Has been for over many years. 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
--- NOTE | 2020-11-18 16:40 | PC.NURSE ---
Addendum entered by Harvey Hernández RN 11/18/20 16:46: Patient tells me that he is also having some throbbing pain to the right wrist. He states this is ongoing from his fall a few weeks ago and would like to have the area looked at. Additionally he does have an ileostomy in place due to history of chron's that was placed in 1994. Original Note: Patient tells me that he was recently seen for kidney stone which was stuck in the ureter and was scheduled for surgery on 11/08/2020. He was told he was unable to have the surgery due to an infection. Patient took a 7 day course of antibiotics and this was then followed by a second course of antibiotics (3 day course). Patient has been unable to have his surgery and was is continuing to have discomfort, nausea, dry heaves, and dysuria. At this time he does not report other concerns to me.
[2020-11-18 17:41] LABS: Add Urine Microscopic? YES; Appearance Urine Cloudy (Clear); Bacteria Urine Trace /hpf; Bilirubin Urine Negative (Negative); Blood Urine 1+ (Negative); Color Urine Yellow (Yellow); Glucose Urine UA Negative (Negative); Ketones Urine Negative (Negative); Leukocyte Esterase Ur 3+ LEU/UL (Negative); Mucus Urine Few /lpf; Nitrate Urine Positive (Negative); Protein Urine 1+ mg/dL (Negative); Specific Grav Ur 1.021 (1.001-1.035); Squamous Epithelial Cell Urine Occasional /hpf (Few); Urobilinogen Urine Negative mg/dL (<2.0); WBC Clumps Urine Present /HPF; WBC Urine >75 /hpf
[2020-11-18] MEDS: LORazepam (*CRX) 0.5 MG TABLET 1 MG PO (18:10)
[2020-11-18] MEDS: AZTREONAM 1 GM in DEXTROSE 5% IN WATER 50 ML 100 ML IVPB (18:12)
[2020-11-18 18:15] VITALS: BP 124/80; PULSE 102; RESP 22; TEMP 36.1; O2SAT 98
[2020-11-18 19:08] VITALS: BP 121/70; PULSE 104; RESP 20; O2SAT 99
[2020-11-18 19:46] VITALS: BP 107/75; PULSE 96; RESP 18; TEMP 36.8; O2SAT 98
--- NOTE | 2020-11-18 20:22 | ADMGEN ---
This patient, Quan Martinez, was admitted to Medical Room 347-. Patient/family oriented to hospital policies and general routines including ID bracelet, bed and alarms, visiting hours, pain management, procedures, bathroom and other care routines, personal items, smoking policy, room service/diet, and visiting hours. Information on how to activate the Rapid Response Team has been discussed. Patient/Family are encouraged to report perceived risks to care and to ask questions if they do not understand what they are told or what they should do.
[2020-11-18 20:28] VITALS: BP 118/64; PULSE 92; RESP 18; TEMP 36.6; O2SAT 98; BMI 23.8
--- NOTE | 2020-11-18 21:33 | PM.IMHP ---
H&P: HPI History of Present Illness Date/Time: 11/18/20 21:33 Chief Complaint: persistent UTI Narrative: 79-year-old male with past medical history of BPH, kidney stones, ureteral stent and urinary tract infection who presented to the ER from home via private as he concerned he has another kidney infection. The patient was admitted to the hospital 10/19/2020 due to infected kidney stone with placement of a left ureteral stent. The patient's urine culture at that time grew out Pseudomonas aeruginosa not available for sensitivity testing. The patient had repeat urine culture on 11/08/2020 which grew out Pseudomonas aeruginosa resistant to Cipro and Levaquin. The patient had been discharged from the hospital on 10/25/2020 with a 90 day supply of Cipro. The patient reports that over the last several days he has been feeling increased weakness. He has had associated nausea with episodes of dry heaves and decreased appetite. He also reports some left flank discomfort but refrains from actually stating that he has left flank pain. He has what sounds like chronic difficulty starting his urinary stream. He has had a couple of episodes of dysuria and recent days. He has felt chilled this morning but denies measuring his temperature. He denies any hematuria or changes in urinary frequency or urgency. Review of Systems Review of Systems: 12 systems were reviewed with pertinent positives and negatives per HPI. Except as documented in the HPI, all other systems were reviewed and are negative. [facility] Past Medical History Medical History (Updated 11/18/20 @ 21:35 by Heaven Calhoun DO) Anxiety Benign prostatic hyperplasia Chronic low back pain Chronic obstructive pulmonary disease Crohn's disease Depression with anxiety Gastroesophageal reflux disease Ileostomy in place Migraine headache Osteoarthritis Surgical History Surgical History (Updated 11/18/20 @ 23:08 by Heaven Calhoun DO) History of bilateral cataract extraction History of exploratory laparotomy (02/03/13) Exploratory laparotomy with extensive adhesiolysis, partial small-bowel resection, takedown and ileostomy with creation of new ileostomy and 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 Status post colectomy (1991) Total colectomy in 1991 with subsequent ileostomy. Family History Family History Mother Family history of malignant neoplasm of breast in first degree relative Family history of Alzheimer's disease Family history of arthritis Breast cancer Father Cerebrovascular accident Family history of coronary artery disease Social History Social History (Updated 11/18/20 @ 23:08 by Heaven Calhoun, ) Social History: Primary care physician: Dr. Konstantin Christian Surrogate decision maker: Taylor Davis, friend. Code status: Full code. Smoking packs per day: 1 Smoking cigarettes per day: 20.0 Years smoked: 45 Smoking pack-years: 45.00 Smoking status: Former smoker Tobacco type: cigarettes Smoking end date: 09/08/09 Alcohol intake: current Drinks per week: 1 Substance use: never Additional living arrangements comments: The patient lives alone in [place]. He has no children. He was in 2002 than his ex- in 2006. 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 Spiritual care concerns: No Meds Home Medications and Allergies Home Medications Medication Instructions Recorded Confirmed Type finasteride 5 mg tablet 5 mg PO DAILY 01/20/20 11/18/20 History fluticasone propionate 50 1 spray INTRANASAL BID 01/20/20 11/18/20 History mcg/actuation nasal spray,suspension lactobacillus combination no.8 3 250 mmu cells PO DAILY cap 01/20/20 11/18/20 History billion cell capsule tamsulosin 0.4 mg caps
[2020-11-18] MEDS: AZTREONAM 2 GM in DEXTROSE 5% 100 ML 200 ML IVPB (22:25)
[2020-11-19] MEDS: MELATONIN 5 MG TABLET PO ×2 (00:01→21:18)
[2020-11-19] MEDS: traZODone HCL 50 MG TABLET PO ×2 (00:01→21:19)
[2020-11-19 04:23] VITALS: BP 103/56; PULSE 77; RESP 18; TEMP 36.6; O2SAT 98
[2020-11-19] MEDS: ACETAMINOPHEN 325 MG TABLET 650 MG PO ×2 (04:44→10:04)
[2020-11-19] MEDS: AZTREONAM 2 GM in DEXTROSE 5% 100 ML 200 ML IVPB ×4 (04:44→21:21)
[2020-11-19 05:48] LABS: Hematocrit 44.7 % (42.0-52.0); Hemoglobin 14.7 g/dL (14.0-18.0); Mean Corpuscular HGB Conc 32.9 g/dl (32-36); Mean Corpuscular Hemoglobin 31.3 pg (26-34); Mean Corpuscular Volume 95.1 fl (80-100); Mean Platelet Volume 8.3 fl (7.4-10.4); Platelet Count Result 237 k/mm3 (150-375); White Blood Count 6.9 K/mm3 (4.5-10.0)
[2020-11-19 06:18] LABS: Anion Gap 13 mmol/L (8-16); Blood Urea Nitrogen 48 mg/dL (9-20); Calcium 9.4 mg/dL (8.4-10.2); Carbon Dioxide 14 mmol/L (22-30); Chloride 100 mmol/L (98-107); Estimated CRCL calculation 33 ml/min; Estimated Glomerular Filt Rate 42; Glucose 126 mg/dL (65-110); Potassium 3.5 mmol/L (3.4-5.0); Sodium 127 mmol/L (137-145)
[2020-11-19] MEDS: ACIDOPHILUS/BULGARICUS CHEWABLE TABLET 2 TABLET BY MOUTH (08:09)
[2020-11-19] MEDS: POTASSIUM CHLORIDE 10 MEQ TABLET PO (08:09)
[2020-11-19] MEDS: TAMSULOSIN HCL 0.4 MG CAPSULE PO (08:10)
[2020-11-19] MEDS: MESALAMINE 250 MG CAP CR 500 MG PO ×3 (08:10→16:48)
[2020-11-19] MEDS: FINASTERIDE 5 MG TABLET PO (08:10)
[2020-11-19] MEDS: FLUTICASONE PROPIONATE 0.05% NA SPR 16 GM BTL (*BKC) 1 SPRAY NASAL ×2 (08:10→16:49)
[2020-11-19] MEDS: MAGNESIUM OXIDE 400 MG TABLET PO (08:10)
[2020-11-19] MEDS: ENOXAPARIN 40 MG/0.4 ML SYRINGE SUB-Q (08:11)
--- NOTE | 2020-11-19 08:28 | PM.IMPN ---
Progress Note: A&P Assessment and Plan (1) Urinary tract infection: Qualifiers: Hematuria presence: with hematuria Urinary tract infection type: site unspecified Qualified Code(s): N39.0 - Urinary tract infection, site not specified; R31.9 - Hematuria, unspecified Code(s): N39.0 - Urinary tract infection, site not specified Status: Acute Assessment and Plan: Pseudomonas aeruginosa UTI unfortunately incompletely treated due to antibiotic resistance therapy after recent ureteral stent placement 10/19/2020. The patient has history of anaphylaxis with penicillin related antibiotics and subsequently has been placed Aztreonam but antibiotic dose has been adjusted to more appropriately treat Pseudomonas aeruginosa with 2 g q.6 hours. Patient will likely need 10-14 days of antibiotic therapy given presence of ureteral stent. Repeat urine cultures pending. We can switch to ertapenem IV for 2 weeks course of antibiotic await urine culture Tolerated imipenem well had also had no problem with amoxicillin in the past Will check with home infusion after finalization a urine culture what is visible as outpatient basis given he will need an IV antibiotic course Ertapenem could be an option however has lesser activity against Pseudomonas compared to other antibiotics (2) Acute kidney injury: Code(s): N17.9 - Acute kidney failure, unspecified Status: Acute Assessment and Plan: recent stone on distal left ueter with moderate left ydronephrosis which has now resolved with placement of lef internal ureteral stent. Patient's ureteral stent appears patent. CK level normal Acute kidney injury likely due to UTI and decreased oral intake. Continue IV fluid hydration renal funcion in improving (3) Hyponatremia: Code(s): E87.1 - Hypo-osmolality and hyponatremia Status: Acute Assessment and Plan: impoving. with ns infusion. (4) Benign prostatic hyperplasia: Code(s): N40.0 - Benign prostatic hyperplasia without lower urinary tract symptoms Status: Chronic Assessment and Plan: flomax (5) Metabolic acidosis: Code(s): E87.2 - Acidosis Status: Acute Assessment and Plan: add bicarb oral (6) Elevated lipase: Code(s): R74.8 - Abnormal levels of other serum enzymes Status: Acute Assessment and Plan: nonspecific. ct negative. previous ct with chornic pancreatitis (7) Crohn's disease: Code(s): K50.90 - Crohn's disease, unspecified, without complications Status: Acute Assessment and Plan: On Pentasa at home Status post ileostomy placement Additional Plan DVT prophylaxis Lovenox Subjective Date/time seen: 11/19/20 08:28 Interval history: HPI 79-year-old male with past medical history of BPH, kidney stones, ureteral stent and urinary tract infection who presented to the ER from home via private as he concerned he has another kidney infection. The patient was admitted to the hospital 10/19/2020 due to infected kidney stone with placement of a left ureteral stent. The patient's urine culture at that time grew out Pseudomonas aeruginosa not available for sensitivity testing. The patient had repeat urine culture on 11/08/2020 which grew out Pseudomonas aeruginosa resistant to Cipro and Levaquin. The patient had been discharged from the hospital on 10/25/2020 with a 90 day supply of Cipro. The patient reports that over the last several days he has been feeling increased weakness. He has had associated nausea with episodes of dry heaves and decreased appetite. He also reports some left flank discomfort but refrains from actually stating that he has left flank pain. He has what sounds like chronic difficulty starting his urinary stream. He has had a couple of episodes of dysuria and recent days. He has felt chilled this morning but denies measuring his temperature. He denies any hematuria or changes in urinary frequency o
[2020-11-19] MEDS: FLUTICASONE/UMECLIDIN/VILANTER 100-62.5-25 MCG ELLIPTA 1 PUFF INHALATION (09:53)
[2020-11-19 09:55] VITALS: O2SAT 96
[2020-11-19 14:00] VITALS: BP 105/60; PULSE 85; RESP 20; TEMP 35.8; O2SAT 99
[2020-11-19] MEDS: SODIUM BICARBONATE TAB 650 MG TABLET PO (16:47)
[2020-11-19] MEDS: LORazepam (*CRX) 0.5 MG TABLET PO (21:19)
[2020-11-19 21:37] VITALS: BP 109/72; PULSE 87; RESP 20; TEMP 36.4; O2SAT 98
[2020-11-20] MEDS: AZTREONAM 2 GM in DEXTROSE 5% 100 ML 200 ML IVPB ×4 (05:02→21:20)
[2020-11-20 06:13] VITALS: BP 110/62; PULSE 84; RESP 18; TEMP 36.3; O2SAT 99
[2020-11-20 06:23] LABS: Basophils Absolute Auto 0.1 K/mm3 (0.0-0.1); Basophils Percent Auto 0.9 % (0.2-1.2); Eosinophils Absolute Auto 0.2 K/mm3 (0-0.3); Eosinophils Percent Auto 2.6 % (0-4.4); Hematocrit 43.2 % (42.0-52.0); Hemoglobin 14.7 g/dL (14.0-18.0); Immature Granulocyte Absolute 0.07 K/mm3 (0.00-0.031); Lymphocytes Absolute Auto 2.35 K/mm3 (0.9-3.2); Lymphocytes Percent Auto 34.4 % (18.3-44.2); Mean Corpuscular Hemoglobin 31.4 pg (26-34); Mean Corpuscular Volume 92.3 fl (80-100); Mean Platelet Volume 8.1 fl (7.4-10.4); Monocytes Absolute Auto 0.6 K/mm3 (0.1-0.6); Monocytes Percent Auto 8.9 % (2.6-8.5); Neutrophils Absolute Auto 3.6 K/mm3 (1.3-6.7); Neutrophils Percent Auto 52.2 % (45.5-73.1); Platelet Count Result 264 k/mm3 (150-375); Red Blood Count 4.68 M/mm3 (4.6-6.20); Red Cell Distribution Width 12.9 % (11.5-14.5); White Blood Count 6.8 K/mm3 (4.5-10.0)
[2020-11-20 06:42] LABS: Anion Gap 12 mmol/L (8-16); Blood Urea Nitrogen 41 mg/dL (9-20); Calcium 9.3 mg/dL (8.4-10.2); Carbon Dioxide 16 mmol/L (22-30); Chloride 98 mmol/L (98-107); Estimated CRCL calculation 38 ml/min; Estimated Glomerular Filt Rate 49; Glucose 101 mg/dL (65-110); Potassium 3.3 mmol/L (3.4-5.0); Sodium 126 mmol/L (137-145)
[2020-11-20] MEDS: FLUTICASONE/UMECLIDIN/VILANTER 100-62.5-25 MCG ELLIPTA 1 PUFF INHALATION (07:31)
[2020-11-20 07:33] VITALS: O2SAT 96
--- NOTE | 2020-11-20 09:29 | PM.IMPN ---
Progress Note: A&P Assessment and Plan (1) Urinary tract infection: Qualifiers: Hematuria presence: with hematuria Urinary tract infection type: site unspecified Qualified Code(s): N39.0 - Urinary tract infection, site not specified; R31.9 - Hematuria, unspecified Code(s): N39.0 - Urinary tract infection, site not specified Status: Acute Assessment and Plan: Pseudomonas aeruginosa UTI unfortunately incompletely treated due to antibiotic resistance therapy after recent ureteral stent placement 10/19/2020. The patient has history of anaphylaxis with penicillin related antibiotics and subsequently has been placed Aztreonam but antibiotic dose has been adjusted to more appropriately treat Pseudomonas aeruginosa with 2 g q.6 hours. Patient will likely need 10-14 days of antibiotic therapy given presence of ureteral stent. Repeat urine cultures pending. We can switch to ertapenem IV for 2 weeks course of antibiotic await urine culture Tolerated Aztreonam well had also had no problem with amoxicillin in the past Will check with home infusion after finalization a urine culture what is visible as outpatient basis given he will need an IV antibiotic course Ertapenem could be an option however has lesser activity against Pseudomonas compared to other antibiotics urine culture this admission is discarded due to contamination will recheck his urinalysis after 2 days of antibiotic therapy and recheck his urine and culture (2) Acute kidney injury: Code(s): N17.9 - Acute kidney failure, unspecified Status: Acute Assessment and Plan: recent stone on distal left ueter with moderate left ydronephrosis which has now resolved with placement of lef internal ureteral stent. Patient's ureteral stent appears patent. CK level normal Acute kidney injury likely due to UTI and decreased oral intake. Continue IV fluid hydration Now stopped renal funcion in improving (3) Hyponatremia: Code(s): E87.1 - Hypo-osmolality and hyponatremia Status: Acute Assessment and Plan: impoving. with ns infusion. IV infusion stopped monitor sodium level (4) Benign prostatic hyperplasia: Code(s): N40.0 - Benign prostatic hyperplasia without lower urinary tract symptoms Status: Chronic Assessment and Plan: flomax (5) Metabolic acidosis: Code(s): E87.2 - Acidosis Status: Acute Assessment and Plan: add bicarb oral (6) Elevated lipase: Code(s): R74.8 - Abnormal levels of other serum enzymes Status: Acute Assessment and Plan: nonspecific. ct negative. previous ct with chornic pancreatitis (7) Crohn's disease: Code(s): K50.90 - Crohn's disease, unspecified, without complications Status: Acute Assessment and Plan: On Pentasa at home Status post ileostomy placement (8) Hypokalemia: Code(s): E87.6 - Hypokalemia Status: Acute Assessment and Plan: replace with KCl 40 mEq p.o. x1 today Additional Plan DVT prophylaxis Lovenox Subjective Date/time seen: 11/20/20 09:29 Interval history: HPI 79-year-old male with past medical history of BPH, kidney stones, ureteral stent and urinary tract infection who presented to the ER from home via private as he concerned he has another kidney infection. The patient was admitted to the hospital 10/19/2020 due to infected kidney stone with placement of a left ureteral stent. The patient's urine culture at that time grew out Pseudomonas aeruginosa not available for sensitivity testing. The patient had repeat urine culture on 11/08/2020 which grew out Pseudomonas aeruginosa resistant to Cipro and Levaquin. The patient had been discharged from the hospital on 10/25/2020 with a 90 day supply of Cipro. The patient reports that over the last several days he has been feeling increased weakness. He has had associated nausea with episodes of dry heaves and decreased appetite. He also r
[2020-11-20] MEDS: FINASTERIDE 5 MG TABLET PO (09:45)
[2020-11-20] MEDS: FLUTICASONE PROPIONATE 0.05% NA SPR 16 GM BTL (*BKC) 1 SPRAY NASAL ×2 (09:45→17:26)
[2020-11-20] MEDS: ENOXAPARIN 40 MG/0.4 ML SYRINGE SUB-Q (09:45)
[2020-11-20] MEDS: SODIUM BICARBONATE TAB 650 MG TABLET PO ×2 (09:45→17:25)
[2020-11-20] MEDS: MAGNESIUM OXIDE 400 MG TABLET PO (09:45)
[2020-11-20] MEDS: ACIDOPHILUS/BULGARICUS CHEWABLE TABLET 2 TABLET BY MOUTH (09:45)
[2020-11-20] MEDS: TAMSULOSIN HCL 0.4 MG CAPSULE PO (09:45)
[2020-11-20] MEDS: POTASSIUM CHLORIDE 10 MEQ TABLET PO (09:45)
[2020-11-20] MEDS: MESALAMINE 250 MG CAP CR 500 MG PO ×3 (09:46→17:25)
[2020-11-20] MEDS: POTASSIUM CHLORIDE 20 MEQ TABLET 40 MEQ PO (09:50)
[2020-11-20 11:29] LABS: Add Urine Microscopic? YES; Appearance Urine Cloudy (Clear); Bilirubin Urine Negative (Negative); Blood Urine 1+ (Negative); Color Urine Yellow (Yellow); Glucose Urine UA Negative (Negative); Ketones Urine Negative (Negative); Leukocyte Esterase Ur 3+ LEU/UL (NEGATIVE); Mucus Urine Rare /lpf; Nitrate Urine Negative (Negative); Protein Urine 1+ mg/dL (Negative); Specific Grav Ur 1.018 (1.001-1.035); Squamous Epithelial Cell Urine Rare /hpf (Few); Urobilinogen Urine Negative mg/dL (<2.0); WBC Urine >75 /hpf (0-3)
--- NOTE | 2020-11-20 12:58 | WPDURCON ---
Assessment and Plan Assessment and plan (1) Urinary tract infection: Qualifiers: Hematuria presence: with hematuria Urinary tract infection type: site unspecified Qualified Code(s): N39.0 - Urinary tract infection, site not specified; R31.9 - Hematuria, unspecified Code(s): N39.0 - Urinary tract infection, site not specified Status: Acute (2) Calculus of distal left ureter: Code(s): N20.1 - Calculus of ureter Status: Acute Assessment and Plan: continue antibitiocs plan for stoen treatment when infection has been treated Urology Consult Note HPI Date Seen: 11/20/20 Requesting Physician: Mandy Whalen MD Primary Care Provider: Konstantin Christian, Consult Narrative Narrative: Quan Martinez is a 79 year old male who is admitted for UTI. He has a history of stone, has a left ureter stent, and had been on IV abx for pseudomonas UTI. He had a stent placed by Dr Bae. He has a history of crohns disease and has an ileostomy. He denies fevers/chills/hematuria, dysuria or flank pain. he had a CT which shows stent in good position. Review of Systems Constitutional: Constitutional: Reports as per HPI Eyes: Eyes: Reports no additional eye complaints ENT: Reports system reviewed and no additional complaints, except as documented Cardiovascular: Cardiovascular: Reports as per HPI Respiratory: Respiratory: Denies dyspnea on exertion Gastrointestinal: Gastrointestinal: Denies abdominal pain Genitourinary: Genitourinary: Reports no additional male genitourinary complaints Musculoskeletal: Musculoskeletal: Reports no additional musculoskeletal complaints Integumentary/Breasts: Skin/Breast: Reports system reviewed and no additional complaints, except as docu Neurologic: Reports system reviewed and no additional complaints, except as documented Endocrine: Endocrine: Reports no additional endocrine complaints Hematologic/Lymphatic: Hematologic/Lymphatic: Reports no additional hematologic/lymphatic complaints Allergic/Immunologic: Allergic/Immunologic: Reports no additional allergic/immunologic complaints [facility] Past Medical History Medical History (Updated 11/20/20 @ 09:33 by James Thibodeaux MD) Anxiety Benign prostatic hyperplasia Chronic low back pain Chronic obstructive pulmonary disease Crohn's disease Depression with anxiety Gastroesophageal reflux disease Ileostomy in place Migraine headache Osteoarthritis Surgical History Surgical History (Updated 11/18/20 @ 23:08 by Heaven Calhoun DO) History of bilateral cataract extraction History of exploratory laparotomy (02/03/13) Exploratory laparotomy with extensive adhesiolysis, partial small-bowel resection, takedown and ileostomy with creation of new ileostomy and 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 Status post colectomy (1991) Total colectomy in 1991 with subsequent ileostomy. Family History Family History Mother Family history of malignant neoplasm of breast in first degree relative Family history of Alzheimer's disease Family history of arthritis Breast cancer Father Cerebrovascular accident Family history of coronary artery disease Social History Social History (Updated 11/18/20 @ 23:08 by Heaven Calhoun DO) Social History: Primary care physician: Dr. Konstantin Christian Surrogate decision maker: Taylor Davis, friend. Code status: Full code. Smoking packs per day: 1 Smoking cigarettes per day: 20.0 Years smoked: 45 Smoking pack-years: 45.00 Smoking status: Former smoker Tobacco type: cigarettes Smoking end date: 09/08/09 Alcohol intake: current Drinks per week: 1 Substance use: never Additional living arrangements comments: The patient lives alone in [place]. He has no children. He was in 2002 than his ex- in 2006. Additional occup
[2020-11-20 14:00] VITALS: BP 110/62; PULSE 87; RESP 16; TEMP 36.7; O2SAT 98
[2020-11-20] MEDS: traZODone HCL 50 MG TABLET PO (20:30)
[2020-11-20] MEDS: LORazepam (*CRX) 0.5 MG TABLET PO (20:30)
[2020-11-20] MEDS: MELATONIN 5 MG TABLET PO (20:30)
[2020-11-20 20:45] VITALS: BP 108/59; PULSE 88; RESP 16; TEMP 36; O2SAT 97
[2020-11-21] MEDS: AZTREONAM 2 GM in DEXTROSE 5% 100 ML 200 ML IVPB ×4 (04:55→21:07)
[2020-11-21 05:57] VITALS: BP 105/51; PULSE 75; RESP 16; TEMP 36.1; O2SAT 95
[2020-11-21 06:35] LABS: Anion Gap 10 mmol/L (8-16); Blood Urea Nitrogen 42 mg/dL (9-20); Calcium 9.5 mg/dL (8.4-10.2); Carbon Dioxide 16 mmol/L (22-30); Chloride 99 mmol/L (98-107); Estimated CRCL calculation 35 ml/min; Estimated Glomerular Filt Rate 45; Glucose 142 mg/dL (65-110); Magnesium 2.3 mg/dL (1.6-2.3); Potassium 4.1 mmol/L (3.4-5.0); Sodium 125 mmol/L (137-145)
[2020-11-21 06:44] LABS: Basophils Absolute Auto 0.1 K/mm3 (0.0-0.1); Basophils Percent Auto 0.9 % (0.2-1.2); Eosinophils Absolute Auto 0.2 K/mm3 (0-0.3); Eosinophils Percent Auto 1.9 % (0-4.4); Hematocrit 43.6 % (42.0-52.0); Hemoglobin 14.9 g/dL (14.0-18.0); Immature Granulocyte Absolute 0.05 K/mm3 (0.00-0.031); Immature Granulocyte Percent A 0.6 % (0-0.5); Lymphocytes Absolute Auto 2.39 K/mm3 (0.9-3.2); Lymphocytes Percent Auto 30.9 % (18.3-44.2); Mean Corpuscular HGB Conc 34.2 g/dl (32-36); Mean Corpuscular Hemoglobin 31.2 pg (26-34); Mean Corpuscular Volume 91.4 fl (80-100); Mean Platelet Volume 8.1 fl (7.4-10.4); Monocytes Absolute Auto 0.7 K/mm3 (0.1-0.6); Monocytes Percent Auto 8.9 % (2.6-8.5); Neutrophils Absolute Auto 4.4 K/mm3 (1.3-6.7); Neutrophils Percent Auto 56.8 % (45.5-73.1); Platelet Count Result 286 k/mm3 (150-375); Red Blood Count 4.77 M/mm3 (4.6-6.20); Red Cell Distribution Width 12.5 % (11.5-14.5); White Blood Count 7.7 K/mm3 (4.5-10.0)
[2020-11-21] MEDS: FLUTICASONE/UMECLIDIN/VILANTER 100-62.5-25 MCG ELLIPTA 1 PUFF INHALATION (08:13)
[2020-11-21] MEDS: MAGNESIUM OXIDE 400 MG TABLET PO (08:47)
[2020-11-21] MEDS: ENOXAPARIN 40 MG/0.4 ML SYRINGE SUB-Q (08:47)
[2020-11-21] MEDS: SODIUM BICARBONATE TAB 650 MG TABLET PO ×2 (08:48→17:35)
[2020-11-21] MEDS: TAMSULOSIN HCL 0.4 MG CAPSULE PO (08:48)
[2020-11-21] MEDS: POTASSIUM CHLORIDE 10 MEQ TABLET PO (08:48)
[2020-11-21] MEDS: FINASTERIDE 5 MG TABLET PO (08:48)
[2020-11-21] MEDS: ACIDOPHILUS/BULGARICUS CHEWABLE TABLET 2 TABLET BY MOUTH (08:48)
[2020-11-21] MEDS: FLUTICASONE PROPIONATE 0.05% NA SPR 16 GM BTL (*BKC) 1 SPRAY NASAL ×2 (08:49→17:35)
[2020-11-21] MEDS: MESALAMINE 250 MG CAP CR 500 MG PO ×3 (08:49→17:35)
--- NOTE | 2020-11-21 08:49 | PM.IMPN ---
Progress Note: A&P Assessment and Plan (1) Urinary tract infection: Qualifiers: Hematuria presence: with hematuria Urinary tract infection type: site unspecified Qualified Code(s): N39.0 - Urinary tract infection, site not specified; R31.9 - Hematuria, unspecified Code(s): N39.0 - Urinary tract infection, site not specified Status: Acute Assessment and Plan: Pseudomonas aeruginosa UTI unfortunately incompletely treated due to antibiotic resistance therapy after recent ureteral stent placement 10/19/2020. The patient has history of anaphylaxis with penicillin related antibiotics and subsequently has been placed Aztreonam but antibiotic dose has been adjusted to more appropriately treat Pseudomonas aeruginosa with 2 g q.6 hours. Patient will likely need 10-14 days of antibiotic therapy given presence of ureteral stent. Repeat urine cultures pending. We can switch to ertapenem IV for 2 weeks course of antibiotic await urine culture Tolerated Aztreonam well had also had no problem with amoxicillin in the past Will check with home infusion after finalization a urine culture what is visible as outpatient basis given he will need an IV antibiotic course Ertapenem could be an option however has lesser activity against Pseudomonas compared to other antibiotics urine culture this admission is discarded due to contamination will recheck his urinalysis after 2 days of antibiotic therapy and recheck his urine and culture Recheck urinalysis looks infected still send for urine culture again Check with home infusion for IV antibiotics course Will place midline/PICC line in today (2) Acute kidney injury: Code(s): N17.9 - Acute kidney failure, unspecified Status: Acute Assessment and Plan: recent stone on distal left ueter with moderate left ydronephrosis which has now resolved with placement of lef internal ureteral stent. Patient's ureteral stent appears patent. CK level normal Acute kidney injury likely due to UTI and decreased oral intake. Continue IV fluid hydration Now stopped renal funcion still not back to normal With worsening sodium level will start IV normal saline today. Recheck sodium level in the evening (3) Hyponatremia: Code(s): E87.1 - Hypo-osmolality and hyponatremia Status: Acute Assessment and Plan: impoving. with ns infusion. IV infusion stopped monitor sodium level Restart normal saline infusion today recheck sodium in the evening (4) Benign prostatic hyperplasia: Code(s): N40.0 - Benign prostatic hyperplasia without lower urinary tract symptoms Status: Chronic Assessment and Plan: flomax (5) Metabolic acidosis: Code(s): E87.2 - Acidosis Status: Acute Assessment and Plan: add bicarb oralSlowly improving (6) Elevated lipase: Code(s): R74.8 - Abnormal levels of other serum enzymes Status: Acute Assessment and Plan: nonspecific. ct negative. previous ct with chornic pancreatitis (7) Crohn's disease: Code(s): K50.90 - Crohn's disease, unspecified, without complications Status: Acute Assessment and Plan: On Pentasa at home Status post ileostomy placement (8) Hypokalemia: Code(s): E87.6 - Hypokalemia Status: Acute Assessment and Plan: replaced Additional Plan DVT prophylaxis Lovenox Disposition:: Will check with home infusion what antibiotic they will be able to do with home health. Will start the antibiotic today in house to avoid any allergic reaction to it as he had anaphylactic shock with penicillin he is however tolerating aztreonam. Will place a PICC line or midline in today. Sodium level worsening will restart sodium chloride infusion. Recheck sodium in the evening Subjective Date/time seen: 11/21/20 08:49 Interval history: HPI 79-year-old male with past medical history of BPH, kidney stones, ureteral stent and urinary tract infection
[2020-11-21] MEDS: SODIUM CHLORIDE 0.9% IV 1,000 ML 75 ML IV CONT (10:09)
[2020-11-21] MEDS: LIDOCAINE HCL 1% PF INJ 5 ML VIAL INFILTRATE (11:15)
[2020-11-21 14:31] VITALS: BP 98/57; PULSE 95; RESP 16; TEMP 36.6; O2SAT 97
[2020-11-21] MEDS: ACETAMINOPHEN 325 MG TABLET 650 MG PO (14:49)
[2020-11-21] MEDS: CENTRAL LINE FLUSH 10 ML IV PUSH ×2 (14:49→21:08)
[2020-11-21 16:19] LABS: Sodium 127 mmol/L (137-145)
--- NOTE | 2020-11-21 16:56 | WPDUROPN2 ---
Progress Note: A&P Assessment and Plan (1) Urinary tract infection: Qualifiers: Hematuria presence: with hematuria Urinary tract infection type: site unspecified Qualified Code(s): N39.0 - Urinary tract infection, site not specified; R31.9 - Hematuria, unspecified Code(s): N39.0 - Urinary tract infection, site not specified Status: Acute Assessment and Plan: Patient had PICC line place in the Right Upper Arm, he will go home with IV antibiotics to treat his infection. He will f/u in the office in 1-2 weeks to repeat a urine culture, if normal will proceed with ureteroscopy to remove the stone and stent. No further evaluation needed. (2) Calculus of distal left ureter: Code(s): N20.1 - Calculus of ureter Status: Acute Subjective Subjective Date/Time Seen: 11/21/20 16:56 Resting comfortably. Odell catheter in place. Urine culture shows Pseudomonas. Patient also grew psudomonas in his urine on 10/19 and 11/[address] scan on 10/19 shows a 5mm distal left calculi, which resulted in a left ureteral stent placement by Dr. Bae. CT on 11/18/2020 shows the stone still in the distal ureter. Review of Systems Cardiovascular: Cardiovascular: Denies chest pain Respiratory: Respiratory: Reports no additional respiratory complaints Gastrointestinal: Gastrointestinal: Denies abdominal pain, Denies nausea and Denies vomiting Genitourinary: Genitourinary: Denies hematuria Exam Resp: Effort & Inspection: normal respiratory effort Cardio: Rate: regular rate GI: GI Palp: Yes Soft to palpation and No Tenderness to palpation present (GI) : General: Yes no CVA tenderness Urinary Catheter: Urinary Catheter: patent and draining and urine clear Objective Data Vital Signs Vital Signs: Vital Signs - 24 hr 11/20/20 20:45 11/21/20 05:57 11/21/20 14:31 Temperature 96.8 F L 97.0 F L 97.9 F Pulse Rate 88 75 95 Respiratory Rate 16 16 16 Blood Pressure 108/59 L 105/51 L 98/57 L Pulse Oximetry 97 95 97 Intake/Output Intake/Output: Intake & Output 11/18/20 11/19/20 11/20/20 11/21/20 23:59 23:59 23:59 23:59 Intake Total 215 1660 2340 880 Output Total 2675 2650 1059 Balance 215 -1015 -310 -170 Meds/Results Medications: Active Medications Generic Name Dose Route Start Last Admin Trade Name Freq PRN Reason Stop Dose Admin Acetaminophen 650 mg 11/18/20 21:32 11/21/20 14:49 Acetaminophen 325 Mg Tablet PO 650 mg Q4H PRN Administration Mild Pain (1-3) or Fever Albuterol 1 puff 11/18/20 23:04 Albuterol Sulfate (*Sp) Aerosol 1 Puff INHALATION QID PRN Shortness Of Breath Enoxaparin Sodium 40 mg 11/19/20 09:00 11/21/20 08:47 Enoxaparin 40 Mg/0.4 Ml Syringe SUB-Q 40 mg DAILY MATHEW Administration Finasteride 5 mg 11/19/20 09:00 11/21/20 08:48 Finasteride 5 Mg Tablet PO 5 mg DAILY MATHEW Administration Fluticasone Propionate 1 spray 11/19/20 09:00 11/21/20 08:49 Fluticasone Propionate 0.05% Na Spr 16 Gm Btl (*Bkc) NASAL 1 spray BID MATHEW Administration Fluticasone/Umeclidinium/Vilanterol 1 puff 11/19/20 09:00 11/21/20 08:13 Fluticasone/Umeclidin/Vilanter 100-62.5-25 Mcg Ellipta INHALATION 1 puff DAILY MATHEW Administration Aztreonam 2 gm/ Dextrose 100 mls @ 200 mls/hr 11/18/20 22:00 11/21/20 16:07 IVPB 200 mls/hr Q6H MATHEW Administration Sodium Chloride 1,000 mls @ 75 mls/hr 11/21/20 08:35 11/21/20 10:09 Normal Saline Iv IV CONT 75 mls/hr .[id number] MATHEW Administration Lactobacillus Acidophilus 2 tablet 11/19/20 09:00 11/21/20 08:48 Acidophilus/Bulgaricus Chewable Tablet BY MOUTH 2 tablet DAILY MATHEW Administration Lorazepam 0.5 mg 11/18/20 23:04 11/20/20 20:30 Lorazepam (*Crx) 0.5 Mg Tablet PO 0.5 mg DAILY PRN Administration Anxiety Magnesium Oxide 400 mg 11/19/20 09:00 11/21/20 08:47 Magnesium Oxide 400 Mg Tablet PO 400 mg DAILY MATHEW Administrat
[2020-11-21] MEDS: MELATONIN 5 MG TABLET PO (20:32)
[2020-11-21] MEDS: traZODone HCL 50 MG TABLET PO (20:32)
[2020-11-21] MEDS: LORazepam (*CRX) 0.5 MG TABLET PO (20:33)
[2020-11-21 21:56] VITALS: BP 121/56; PULSE 81; RESP 18; TEMP 36.6; O2SAT 100
[2020-11-22] MEDS: SODIUM CHLORIDE 0.9% IV 1,000 ML 75 ML IV CONT ×2 (00:18→10:26)
[2020-11-22] MEDS: ACETAMINOPHEN 325 MG TABLET 650 MG PO ×2 (00:18→08:00)
[2020-11-22] MEDS: AZTREONAM 2 GM in DEXTROSE 5% 100 ML 200 ML IVPB ×3 (03:16→15:27)
[2020-11-22] MEDS: CENTRAL LINE FLUSH 10 ML IV PUSH ×2 (05:18→13:45)
[2020-11-22] MEDS: CENTRAL LINE FLUSH 20 ML IV PUSH (05:18)
[2020-11-22 05:19] VITALS: BP 118/48; PULSE 63; RESP 18; TEMP 36.2; O2SAT 99
[2020-11-22 05:40] LABS: Basophils Absolute Auto 0.1 K/mm3 (0.0-0.1); Basophils Percent Auto 0.9 % (0.2-1.2); Eosinophils Absolute Auto 0.1 K/mm3 (0-0.3); Hematocrit 37.1 % (42.0-52.0); Hemoglobin 12.5 g/dL (14.0-18.0); Immature Granulocyte Absolute 0.06 K/mm3 (0.00-0.031); Immature Granulocyte Percent A 0.9 % (0-0.5); Lymphocytes Absolute Auto 2.25 K/mm3 (0.9-3.2); Lymphocytes Percent Auto 33.9 % (18.3-44.2); Mean Corpuscular HGB Conc 33.7 g/dl (32-36); Mean Corpuscular Hemoglobin 30.8 pg (26-34); Mean Corpuscular Volume 91.4 fl (80-100); Mean Platelet Volume 8.1 fl (7.4-10.4); Monocytes Absolute Auto 0.6 K/mm3 (0.1-0.6); Monocytes Percent Auto 8.7 % (2.6-8.5); Neutrophils Absolute Auto 3.6 K/mm3 (1.3-6.7); Neutrophils Percent Auto 53.6 % (45.5-73.1); Platelet Count Result 268 k/mm3 (150-375); Red Blood Count 4.06 M/mm3 (4.6-6.20); Red Cell Distribution Width 12.6 % (11.5-14.5); White Blood Count 6.6 K/mm3 (4.5-10.0)
[2020-11-22 05:57] LABS: Anion Gap 6 mmol/L (8-16); Blood Urea Nitrogen 36 mg/dL (9-20); Calcium 8.8 mg/dL (8.4-10.2); Carbon Dioxide 20 mmol/L (22-30); Chloride 103 mmol/L (98-107); Estimated CRCL calculation 41 ml/min; Estimated Glomerular Filt Rate 53; Glucose 96 mg/dL (65-110); Potassium 3.9 mmol/L (3.4-5.0); Sodium 129 mmol/L (137-145)
[2020-11-22] MEDS: TAMSULOSIN HCL 0.4 MG CAPSULE PO (07:57)
[2020-11-22] MEDS: ACIDOPHILUS/BULGARICUS CHEWABLE TABLET 2 TABLET BY MOUTH (07:57)
[2020-11-22] MEDS: SODIUM BICARBONATE TAB 650 MG TABLET PO (07:58)
[2020-11-22] MEDS: POTASSIUM CHLORIDE 10 MEQ TABLET PO (07:58)
[2020-11-22] MEDS: FINASTERIDE 5 MG TABLET PO (07:58)
[2020-11-22] MEDS: ENOXAPARIN 40 MG/0.4 ML SYRINGE SUB-Q (07:58)
[2020-11-22] MEDS: FLUTICASONE PROPIONATE 0.05% NA SPR 16 GM BTL (*BKC) 1 SPRAY NASAL (07:58)
[2020-11-22] MEDS: MAGNESIUM OXIDE 400 MG TABLET PO (07:58)
[2020-11-22] MEDS: MESALAMINE 250 MG CAP CR 500 MG PO ×2 (07:58→13:45)
[2020-11-22] MEDS: LORazepam (*CRX) 0.5 MG TABLET PO (08:00)
[2020-11-22] MEDS: FLUTICASONE/UMECLIDIN/VILANTER 100-62.5-25 MCG ELLIPTA 1 PUFF INHALATION (09:22)
[2020-11-22 14:00] VITALS: BP 116/56; PULSE 78; RESP 18; TEMP 36.7; O2SAT 98
--- NOTE | 2020-11-22 15:07 | PCOTNOTE ---
Attempted OT treatment, patient is currently working with physical therapy, will follow and attempt at later time.
--- NOTE | 2020-11-22 15:33 | PM.DS ---
DS: Admitting Diagnosis Discharge Date 11/22/2020 Admitting Diagnosis Chief Complaint: persistent UTI DS: Discharge Diagnosis Discharge Diagnosis (1) Urinary tract infection: Qualifiers: Hematuria presence: with hematuria Urinary tract infection type: site unspecified Qualified Code(s): N39.0 - Urinary tract infection, site not specified; R31.9 - Hematuria, unspecified Code(s): N39.0 - Urinary tract infection, site not specified Status: Acute Assessment and Plan: Pseudomonas aeruginosa UTI unfortunately incompletely treated due to antibiotic resistance therapy after recent ureteral stent placement 10/19/2020. The patient has history of anaphylaxis with penicillin related antibiotics and subsequently has been placed Aztreonam but antibiotic dose has been adjusted to more appropriately treat Pseudomonas aeruginosa with 2 g q.6 hours. Patient will likely need 10-14 days of antibiotic therapy given presence of ureteral stent. Repeat urine cultures pending. We can switch to ertapenem IV for 2 weeks course of antibiotic await urine culture Tolerated Aztreonam well had also had no problem with amoxicillin in the past Will check with home infusion after finalization a urine culture what is visible as outpatient basis given he will need an IV antibiotic course Ertapenem could be an option however has lesser activity against Pseudomonas compared to other antibiotics urine culture this admission is discarded due to contamination will recheck his urinalysis after 2 days of antibiotic therapy and recheck his urine and culture Recheck urinalysis looks infected still send for urine culture again Check with home infusion for IV antibiotics course Will place midline/PICC line in today (2) Acute kidney injury: Code(s): N17.9 - Acute kidney failure, unspecified Status: Acute Assessment and Plan: recent stone on distal left ueter with moderate left ydronephrosis which has now resolved with placement of lef internal ureteral stent. Patient's ureteral stent appears patent. CK level normal Acute kidney injury likely due to UTI and decreased oral intake. Continue IV fluid hydration Now stopped renal funcion still not back to normal With worsening sodium level will start IV normal saline today. Recheck sodium level in the evening (3) Hyponatremia: Code(s): E87.1 - Hypo-osmolality and hyponatremia Status: Acute Assessment and Plan: impoving. with ns infusion. IV infusion stopped monitor sodium level Restart normal saline infusion today recheck sodium in the evening (4) Benign prostatic hyperplasia: Code(s): N40.0 - Benign prostatic hyperplasia without lower urinary tract symptoms Status: Chronic Assessment and Plan: flomax (5) Metabolic acidosis: Code(s): E87.2 - Acidosis Status: Acute Assessment and Plan: add bicarb oralSlowly improving (6) Elevated lipase: Code(s): R74.8 - Abnormal levels of other serum enzymes Status: Acute Assessment and Plan: nonspecific. ct negative. previous ct with chornic pancreatitis (7) Crohn's disease: Code(s): K50.90 - Crohn's disease, unspecified, without complications Status: Acute Assessment and Plan: On Pentasa at home Status post ileostomy placement (8) Hypokalemia: Code(s): E87.6 - Hypokalemia Status: Acute Assessment and Plan: replaced DS: Summary Hospital Course Reason for hospitalization: Chief Complaint: persistent UTI Narrative: 79-year-old male with past medical history of BPH, kidney stones, ureteral stent and urinary tract infection who presented to the ER from home via private as he concerned he has another kidney infection. The patient was admitted to the hospital 10/19/2020 due to infected kidney stone with placement of a left ureteral stent. The patient's urine culture at that time grew out Pseudomonas aeruginosa not a
== END 2020-11-22 17:12 | disposition home health service (06) | DRG 690 ==
LOC: ANHED 17:33 → ANH3MED 19:26
PROVIDERS: Emergency Medicine; Internal Medicine; Admitting Provider Hospitalist; Emergency Provider Emergency Medicine; PCP Internal Medicine; Visit Provider Internal Medicine
DX: N39.0 Urinary tract infection, site not specified (principal); N17.9 Acute kidney failure, unspecified; E87.1 Hypo-osmolality and hyponatremia; E87.2 Acidosis; K50.90 Crohn's disease, unspecified, without complications; N20.1 Calculus of ureter; Z16.20 Resistance to unspecified antibiotic; R31.9 Hematuria, unspecified; B96.5 Pseudomonas (aeruginosa) (mallei) (pseudomallei) as the cause of diseases classified elsewhere; Z96.0 Presence of urogenital implants; R74.8 Abnormal levels of other serum enzymes; E87.6 Hypokalemia; N40.0 Benign prostatic hyperplasia without lower urinary tract symptoms; M54.5 Low back pain; J44.9 Chronic obstructive pulmonary disease, unspecified; F41.8 Other specified anxiety disorders; G43.909 Migraine, unspecified, not intractable, without status migrainosus; K21.9 Gastro-esophageal reflux disease without esophagitis; M19.90 Unspecified osteoarthritis, unspecified site; Z79.899 Other long term (current) drug therapy; Z88.0 Allergy status to penicillin; Z98.42 Cataract extraction status, left eye; Z98.41 Cataract extraction status, right eye; Z93.2 Ileostomy status
CPT/HCPCS: 36415; 36569; 74176; 80048; 80053; 81001; 83690; 83735; 84295; 85025; 85027; 87086; 87088; 94640; 96365; 96366; 96367; 96372; 97116; 97161; 97165; 99285; A9270; C1751; G0378; J0131; J1650; J7030

== ENCOUNTER 2020-11-24 01:47 | Day surgery (SDC) | payer MEDICARE, OTHER, SELFPAY ==
[2020-11-23 12:18] VITALS: BMI 24.5
[2020-11-24] VITALS (7 sets, daily range): BP systolic 115–135; BP diastolic 56–78; PULSE 80–103; RESP 15–20; TEMP 36.2–36.8; O2SAT 99–100
--- NOTE | ~2020-11-24 | XR_ITS ---
EXAMINATION: XR fluoroscopy <1hr INDICATION: Left stone extraction TECHNIQUE: Fluoroscopy exposure time was 43.5 seconds. The DAP for this procedure was 422.60 Gycm2. COMPARISON: None available FINDINGS: Fleet Sales Manager images demonstrate a left internal ureteral stent in expected position. Subsequent im ages demonstrate cannulation of the left ureter and removal of the stent. Please refer to procedure n ote for full details. IMPRESSION: 1. Please refer to procedure note for full details. Reviewed, dictated and finalized at location A.
--- NOTE | 2020-11-24 06:36 | PM.HPGS ---
History of Present Illness History of Present Illness Consent: Risks, benefits, and alternatives have been discussed and questions answered. Patient agrees to proceed with procedure. Chief complaint: left kidney stones Narrative: Quan Martinez is a 79 year old male Was admitted to the hospital approximately 1 month ago with an obstructing 5 mm left distal ureteral calculus and Pseudomonas urinary tract infection. In addition to the moderate-sized distal ureteral stone he has a small nonobstructing left renal calculus. He has urinary tract infection has been treated and he now presents for ureteroscopy with stone extraction possible laser lithotripsy and possible stent replacement. Review of Systems Cardiovascular: Cardiovascular: Denies chest pain, Denies lightheadedness, Denies palpitations and Denies dyspnea Respiratory: Respiratory: Denies dyspnea Gastrointestinal: Gastrointestinal: Denies diarrhea, Denies nausea and Denies vomiting Genitourinary: Genitourinary: Denies hematuria and Denies dysuria Endocrine: Endocrine: Denies palpitations PMFSH Past Medical History Medical History Anxiety Benign prostatic hyperplasia Chronic low back pain Chronic obstructive pulmonary disease Crohn's disease Depression with anxiety Gastroesophageal reflux disease Ileostomy in place Migraine headache Osteoarthritis Surgical History Surgical History History of bilateral cataract extraction History of exploratory laparotomy (02/03/13) Exploratory laparotomy with extensive adhesiolysis, partial small-bowel resection, takedown and ileostomy with creation of new ileostomy and 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 Status post colectomy (1991) Total colectomy in 1991 with subsequent ileostomy. Family History Family History Mother Family history of malignant neoplasm of breast in first degree relative Family history of Alzheimer's disease Family history of arthritis Breast cancer Father Cerebrovascular accident Family history of coronary artery disease Social History Social History Social History: Primary care physician: Dr. Konstantin Christian Surrogate decision maker: Taylor Davis, friend. Code status: Full code. Smoking packs per day: 1 Smoking cigarettes per day: 20.0 Years smoked: 45 Smoking pack-years: 45.00 Smoking status: Former smoker Tobacco type: cigarettes Second hand tobacco smoke exposure: No Smoking end date: 09/08/09 Alcohol intake: current Drinks per week: 2 Substance use: never Substance use type: does not use Living arrangements: alone Additional living arrangements comments: The patient lives alone in [place]. He has no children. He was in 2002 than his ex- in 2006. 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 Spiritual care concerns: No Meds Home Medications and Allergies Home Medications Medication Instructions Recorded Confirmed Type finasteride 5 mg tablet 5 mg PO DAILY 01/20/20 11/23/20 History fluticasone propionate 50 1 spray INTRANASAL BID 01/20/20 11/23/20 History mcg/actuation nasal spray,suspension lactobacillus combination no.8 3 250 mmu cells PO DAILY cap 01/20/20 11/23/20 History billion cell capsule tamsulosin 0.4 mg capsule 0.4 mg PO DAILY 01/20/20 11/23/20 History magnesium oxide 400 mg PO DAILY 07/21/20 11/23/20 History potassium 99 mg tablet 99 mg PO DAILY tablet 07/21/20 11/23/20 History Pentasa 500 mg PO TID 10/19/20 11/23/20 History Trelegy Ellipta 1 inh INHALATION DAILY 10/19/20 11/23/20 History albuterol sulfate 1 puff INHALATION
--- NOTE | 2020-11-24 06:40 | WPDHPUPDATE1 ---
History and Physical Update Update Date/Time: 11/24/20 06:40 History and Physical has been reviewed, including an updated exam of the patient. There are NO changes in the patient's condition. Risks, benefits, and alternatives have been discussed and questions answered. Patient agrees to proceed with procedure.
--- NOTE | 2020-11-24 07:52 | WPDANESEPPF ---
Anes - Initial Pre Proc Eval Procedure: Operation Date: 11/24/20 10:30 Proposed Procedures p Cystoscopy, Left Ureteroscopy, Left Stone Extraction, Possible Left Retrograde Pyelogram, Possible Left Stent Placement, - Shabbir Sanchez MD s Possible Holmium Laser Procedure - Shabbir Sanchez MD Date/Time: 11/24/20 07:52 Surgeon: Shabbir Sanchez MD Pre Op Diagnosis: left kidney stones Patient Data Age: 79 Gender: M Height: 1.73 m Weight: 73 kg Allergies Allergy/AdvReac Type Severity Reaction Status Date / Time Penicillins Allergy Severe Anaphylactic Verified 11/24/20 09:30 Shock prednisone Allergy Severe DYSPNEA, Verified 11/24/20 09:30 Dizziness clindamycin Allergy Unknown Itching/Zachery Verified 11/24/20 09:30 h Iodinated Contrast Media Allergy Unknown Itching Verified 11/24/20 09:30 Home Medications Medication Instructions Recorded Confirmed Type finasteride 5 mg tablet 5 mg PO DAILY 01/20/20 11/23/20 History fluticasone propionate 50 1 spray INTRANASAL BID 01/20/20 11/23/20 History mcg/actuation nasal spray,suspension lactobacillus combination no.8 3 250 mmu cells PO DAILY cap 01/20/20 11/23/20 History billion cell capsule tamsulosin 0.4 mg capsule 0.4 mg PO DAILY 01/20/20 11/23/20 History magnesium oxide 400 mg PO DAILY 07/21/20 11/23/20 History potassium 99 mg tablet 99 mg PO DAILY tablet 07/21/20 11/23/20 History Pentasa 500 mg PO TID 10/19/20 11/23/20 History Trelegy Ellipta 1 inh INHALATION DAILY 10/19/20 11/23/20 History albuterol sulfate 1 puff INHALATION QID PRN 10/19/20 11/23/20 History lorazepam 0.5 mg PO DAILY PRN 10/19/20 11/23/20 History trazodone 50 mg PO HS PRN 10/19/20 11/23/20 History melatonin 5 mg PO HS PRN #30 tablet 11/22/20 11/23/20 Rx sodium bicarbonate 650 mg PO BID #30 tablet 11/22/20 11/23/20 Rx acetaminophen [Tylenol Ex Str 1,000 mg PRN PRN 11/23/20 11/23/20 History Arthritis Pain] sodium bicarbonate 650 mg PO BID 11/23/20 11/23/20 History Patient hx anesthesia problems: none Family hx anesthesia problems: none PMFSH Past Medical History Medical History Anxiety Benign prostatic hyperplasia Chronic low back pain Chronic obstructive pulmonary disease Crohn's disease Depression with anxiety Gastroesophageal reflux disease Ileostomy in place Migraine headache Osteoarthritis Surgical History Surgical History History of bilateral cataract extraction History of exploratory laparotomy (02/03/13) Exploratory laparotomy with extensive adhesiolysis, partial small-bowel resection, takedown and ileostomy with creation of new ileostomy and 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 Status post colectomy (1991) Total colectomy in 1991 with subsequent ileostomy. Family History Family History Mother Family history of malignant neoplasm of breast in first degree relative Family history of Alzheimer's disease Family history of arthritis Breast cancer Father Cerebrovascular accident Family history of coronary artery disease Social History Social History Social History: Primary care physician: Dr. Konstantin Christian Surrogate decision maker: Taylor Davis, friend. Code status: Full code. Smoking packs per day: 1 Smoking cigarettes per day: 20.0 Years smoked: 45 Smoking pack-years: 45.00 Smoking status: Former smoker Tobacco type: cigarettes Second hand tobacco smoke exposure: No Smoking end date: 09/08/09 Alcohol intake: current Drinks per week: 2 Substance use: never Substance use type: does not use Living arrangements: alone Additional living arrangements comments: The patient lives alone in [place]. He has no children. He was in 2002 than his ex-
[2020-11-24] MEDS: LACTATED RINGERS 1,000 ML 30 ML IV CONT (09:20)
[2020-11-24 09:50] LABS: Sodium 133 mmol/L (137-145)
[2020-11-24] MEDS: AZTREONAM 2 GM in DEXTROSE 5% 100 ML 200 ML IVPB (10:15)
[2020-11-24] MEDS: KETOROLAC 30 MG/ML VIAL (*BKC) 15 MG IV PUSH (11:22)
--- NOTE | 2020-11-24 11:23 | W.PM.PROC2 ---
Procedure Note - Detailed Date of Procedure 11/24/20 Pre-op Diagnosis Left ureteral stone Post-op Diagnosis same Procedure Performed cystoscopy, left ureteral stent removal, left ureteroscopy with stone extraction Surgeon Shabbir Sanchez MD Anesthesia general Description of Procedure patient is brought to the operative suite was prepped and draped in routine sterile fashion while in a dorsal lithotomy position after the uneventful induction of a general LMA anesthetic. 2% lidocaine is introduced into his urethra. Cystoscopy is undertaken with a 21 F rigid cystoscope. Is no urethral stricture and moderate lateral lobe hyperplasia of the prostate without a significant median lobe. There was an indwelling left ureteral stent without other significant intravesical pathology. The stent is brought to the external urethral meatus and a 0.035 in glidewire was advanced in the left renal pelvis. The distal ureter was dilated with an 8 F 10 F dilator. I 1st did ureteroscopy with a short tapered semi-rigid ureteral scope in just could not quite reach the stone. I replaced with a 7.5 F flexible ureteral scope and the stone was then easily grasped and removed with a 1.9 F escape disposable stone basket. due to minimal apparent ureteral edema in the ease of this manipulation opted not to replace the stent. The patient was taken recovery room in good condition. Estimated Blood Loss 0 Urine Output 0 Drains No Packing No Pathology yes Complications No immediate complications Condition stable Disposition PACU
[2020-11-24] MEDS: fentaNYL CITRATE INJ (*CRX) 100 MCG/2 ML VIAL 25 MCG IV PUSH ×2 (11:38→11:45)
--- NOTE | 2020-11-24 12:47 | SUR.PHASEII ---
PT AWAKE AND ALERT. DENIES SURGICAL PAIN. NO LONGER SHIVERING. HAS WARM BLANKETS AND DRINKING COFFEE. PT STATES DULL HEADACHE, IMPROVING. RESP EVEN UNLABORED. P,W,D.
== END 2020-11-24 13:29 | disposition home or self-care (01) ==
PROVIDERS: Anesthesiology; PCP Internal Medicine; Visit Provider Urology
PROC: (CPT 52352; principal; 2020-11-24 10:30)
PROC: (CPT 52352; 2020-11-24 10:30)
DX: N20.1 Calculus of ureter (principal); N40.0 Benign prostatic hyperplasia without lower urinary tract symptoms; J44.9 Chronic obstructive pulmonary disease, unspecified; K50.90 Crohn's disease, unspecified, without complications; K21.9 Gastro-esophageal reflux disease without esophagitis; F41.8 Other specified anxiety disorders; Z93.2 Ileostomy status; Z90.49 Acquired absence of other specified parts of digestive tract; Z87.891 Personal history of nicotine dependence; Z79.51 Long term (current) use of inhaled steroids
CPT/HCPCS: 52352; 36415; 74018; 76000; 82365; 84295; 88300; C1769; J1100; J1885; J2405; J2704; J3010; J7120; Q9966

== ENCOUNTER 2022-05-02 08:01 | Outpatient (RCR) | payer MEDICARE, OTHER, SELFPAY ==
[2022-05-02 08:00] VITALS: BMI 24.3
== END 2022-06-25 12:37 | disposition home or self-care (01) ==
LOC: ANHWOC 08:01
PROVIDERS: PCP Internal Medicine; Visit Provider Internal Medicine
DX: Z43.4 Encounter for attention to other artificial openings of digestive tract (principal)
CPT/HCPCS: 99214; G0463

== ENCOUNTER 2022-05-18 06:52 | Emergency (ER) | payer MEDICARE, OTHER, SELFPAY ==
[2022-05-18] VITALS (19 sets, daily range): BP systolic 149–180; BP diastolic 84–92; PULSE 95–106; RESP 15–36; TEMP 36.9; O2SAT 97–98
--- NOTE | ~2022-05-18 | XR_ITS ---
XR chest 2V DATE: 05/18/2022 08:10 INDICATION: Cough, shortness of breath. Past smoker. TECHNIQUE: AP and lateral views COMPARISON: 10/19/2020 portable AP chest 10/31/2018 low-dose CT lung screening FINDINGS: Bilateral hyperinflation. No pulmonary infiltrate or consolidation, pleural effusion or pul monary vascular congestion or pneumothorax is detected. Normal heart size. No hilar or mediastinal enlargement. Prominent left cardiophrenic fat pad chronic blunting of left costophrenic angle. Multiple old right healed rib fractures. IMPRESSION: Bilateral hyperinflation; no active cardiopulmonary disease Reviewed, dictated and finalized at location B. NEERING SCIENTIST
--- NOTE | ~2022-05-18 | CT_ITS ---
CT Scan of the Chest without Contrast: Clinical Indication: Shortness of breath, cough Technique: Contiguous sections were acquired throughout the chest without intravenous contrast. Dose reduction technique was used on this scan by utilizing automated exposure control and iterative recon struction technique. The dose-length product (DLP) was 264.25 mGy-cm. COMPARISON: 10/31/2018 Findings: There is no evidence of any significant mediastinal, hilar or axillary lymphadenopathy. The mediastin al soft tissues appear normal. There is no evidence of pleural or pericardial effusion. There is mild scarring the bilateral lung bases. 5 mm left lower lobe pulmonary nodule noted, unchang ed (axial image 97). Images through the upper abdomen reveal calcifications consistent with chronic pancreatitis. Impression: No acute abnormality seen. 5 mm left lower lobe pulmonary nodule stable since 10/31/2018, consistent with benign lesion. Chronic pancreatitis. Reviewed, dictated and finalized at [facility]. BER FRAME CHANGER Impression: No acute abnormality seen. 5 mm left lower lobe pulmonary nodule stable since 10/31/2018, consistent with b enign lesion. Chronic pancreatitis.
[2022-05-18 08:04] LABS: Basophils Percent Auto 0.3 % (0.2-1.2); Eosinophils Percent Auto 0.4 % (0-4.4); Hematocrit 48.8 % (42.0-52.0); Hemoglobin 16.5 g/dL (14.0-18.0); Immature Granulocyte Absolute 0.06 K/mm3 (0.00-0.031); Immature Granulocyte Percent A 0.5 % (0-0.5); Lymphocytes Absolute Auto 1.14 K/mm3 (0.9-3.2); Lymphocytes Percent Auto 10.4 % (18.3-44.2); Mean Corpuscular HGB Conc 33.8 g/dl (32-36); Mean Corpuscular Hemoglobin 31.3 pg (26-34); Mean Corpuscular Volume 92.4 fl (80-100); Mean Platelet Volume 8.2 fl (7.4-10.4); Monocytes Absolute Auto 0.7 K/mm3 (0.1-0.6); Monocytes Percent Auto 6.6 % (2.6-8.5); Neutrophils Percent Auto 81.8 % (45.5-73.1); Platelet Count Result 394 k/mm3 (150-375); Red Blood Count 5.28 M/mm3 (4.6-6.20); Red Cell Distribution Width 13.2 % (11.5-14.5)
[2022-05-18 08:07] LABS: Strep Group A RT-PCR NOT DETECTED (Negative)
--- NOTE | 2022-05-18 08:11 | PC.NURSE ---
Dr. Perez at bedside to assess pt.
[2022-05-18 08:16] LABS: Alanine Aminotransferase 34 U/L (6-50); Albumin Level 4.5 g/dL (3.5-5.1); Alkaline Phosphatase 158 U/L (38-126); Anion Gap 12 mmol/L (8-16); Aspartate Amino Transferase 24 U/L (17-59); Blood Urea Nitrogen 36 mg/dL (9-20); Calcium 9.9 mg/dL (8.4-10.2); Carbon Dioxide 18 mmol/L (22-30); Chloride 107 mmol/L (98-107); Estimated CRCL calculation 34 ml/min; Estimated Glomerular Filt Rate 45; Glucose 158 mg/dL (65-110); Potassium 4.4 mmol/L (3.4-5.0); Sodium 137 mmol/L (137-145)
[2022-05-18 08:18] LABS: Influenza A QL RT-PCR Negative (Negative); Influenza B QL RT-PCR Negative (Negative); RSV RNA, RT-PCR Negative (Negative); SARS-CoV-2 RNA PCR Negative
--- NOTE | 2022-05-18 08:33 | ED.GENADULT ---
HPI - General Adult General Chief complaint: Shortness of Breath/Dyspnea Stated complaint: difficulty swallowing Time Seen by Provider: 05/18/22 07:28 History of Present Illness HPI narrative: 81-year-old male presented the emergency department for evaluation of persistent cough. Patient states a few weeks ago he presented to his primary care physician for cough and congestion and was started on azithromycin. Patient states he completed this course of antibiotics and had no improvement. Patient then had follow-up with primary care physician and completed a course of doxycycline with no improvement and now patient started Levaquin yesterday. Patient does report of history of smoking and does use albuterol at home. Patient does have a history of COPD. Related Data Home Medications Medication Instructions Recorded Confirmed finasteride 5 mg tablet 5 mg PO DAILY 01/20/20 05/02/22 fluticasone propionate 50 1 spray intranasal BID 01/20/20 05/02/22 mcg/actuation nasal spray,suspension (Allergy Relief (fluticasone)) lactobacillus combination no.8 3 250 mmu cells PO DAILY 01/20/20 05/02/22 billion cell capsule (Adult Probiotic) tamsulosin 0.4 mg capsule 0.4 mg PO DAILY 01/20/20 01/31/22 magnesium oxide 400 mg PO DAILY 07/21/20 05/02/22 potassium 99 mg tablet 99 mg PO DAILY 07/21/20 05/02/22 albuterol sulfate 90 mcg/actuation 1 puff inhalation QID PRN 10/19/20 05/02/22 aerosol inhaler Shortness Of Breath fluticasone fur. 100 mcg-umeclid 1 inh inhalation DAILY 10/19/20 05/02/22 62.5 mcg-vilant 25 mcg inhalat.powder (Trelegy Ellipta) lorazepam 0.5 mg tablet 0.5 mg PO DAILY PRN Anxiety 10/19/20 05/02/22 trazodone 50 mg tablet 50 mg PO HS PRN Sleep 10/19/20 05/02/22 acetaminophen 500 mg tablet 1,000 mg PRN PRN Pain 11/23/20 01/31/22 loperamide-simethicone 2 mg-125 mg 1 tablet PO Q3H PRN Constipation 07/20/21 05/02/22 tablet bupropion HCl 100 mg tablet 100 mg PO TID 01/31/22 05/02/22 Allergies Allergy/AdvReac Type Severity Reaction Status Date / Time Penicillins Allergy Severe Anaphylactic Verified 01/31/22 08:26 Shock prednisone Allergy Severe DYSPNEA, Verified 01/31/22 08:26 Dizziness clindamycin Allergy Unknown Itching/Zachery Verified 01/31/22 08:26 h Iodinated Contrast Media Allergy Unknown Itching Verified 01/31/22 08:26 Review of Systems Review of Systems: CONSTITUTIONAL: Denies fever, chills, or sweats. EYES: Denies visual changes, redness, or discharge. ENT: Denies rhinorrhea, congestion, sore throat, or otalgia. CARDIOVASCULAR: Denies chest pain, palpitations, or edema. RESPIRATORY: See HPI GASTROINTESTINAL: Denies abdominal pain, nausea, vomiting, or diarrhea. GENITOURINARY: Denies dysuria or hematuria. SKIN: Denies rash or itching. MUSCULOSKELETAL: Denies back pain, joint pain, or myalgia. NEUROLOGIC: Denies headache, numbness, or weakness. PSYCHIATRIC: Denies anxiety or depression. 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 Status post colectomy (1991) Total colectomy in 1991 with subsequent ileostomy. Family History Family History Mother Family history of malignant neoplasm of breast in first degree relative Family history of Alzheimer's disease Family history of arthritis Breast c
--- NOTE | 2022-05-18 08:39 | PC.NURSE ---
Patient off unit to CT.
--- NOTE | 2022-05-18 08:40 | PC.NURSE ---
RT at bedside to administer breathing treatment.
[2022-05-18] MEDS: ALBUTEROL SULFATE NEB 2.5 MG/3 ML INH 5 MG INHALATION (08:45)
[2022-05-18] MEDS: ONDANSETRON INJ 4 MG/2 ML VIAL IV PUSH (09:35)
--- NOTE | 2022-05-18 10:05 | PC.NURSE ---
Patient reports that he has been unable to swallow pills since yesterday though he was observed to be swallow water. He declined the PO Ativan. aware.
== END 2022-05-18 11:35 | disposition home or self-care (01) ==
PROVIDERS: Emergency Provider Emergency Medicine; PCP Internal Medicine
DX: J44.1 Chronic obstructive pulmonary disease with (acute) exacerbation (principal); Z20.822 Contact with and (suspected) exposure to COVID-19; F41.9 Anxiety disorder, unspecified; K50.90 Crohn's disease, unspecified, without complications; F32.A Depression, unspecified; K21.9 Gastro-esophageal reflux disease without esophagitis; M19.90 Unspecified osteoarthritis, unspecified site
CPT/HCPCS: 36415; 71046; 71250; 80053; 85025; 87637; 87651; 94640; 96374; 99284; J2405

== ENCOUNTER 2022-08-02 08:57 | Outpatient (RCR) | payer MEDICARE, OTHER, SELFPAY ==
[2022-08-02 09:00] VITALS: BMI 24.3
== END 2022-10-22 09:32 | disposition home or self-care (01) ==
LOC: ANHWOC 08:57
PROVIDERS: PCP Internal Medicine; Visit Provider Internal Medicine
DX: L24.B1 Irritant contact dermatitis related to digestive stoma or fistula (principal)
CPT/HCPCS: 99213; G0463

== ENCOUNTER 2022-11-29 07:40 | Outpatient (RCR) | payer MEDICARE, OTHER, SELFPAY | END 2023-02-27 23:59 | disposition home or self-care (01) | LOC: ANHWOC 07:40 | PROVIDERS: PCP Internal Medicine; Visit Provider Internal Medicine | DX: Z93.9 Artificial opening status, unspecified (principal); Z48.01 Encounter for change or removal of surgical wound dressing | CPT/HCPCS: 99213; G0463 ==

== ENCOUNTER 2022-12-24 14:02 | Outpatient (CLI) | payer MEDICARE, OTHER, SELFPAY ==
--- NOTE | 2022-12-24 16:47 | WPDSIXMINUTE ---
Six Minute Walk Procedure Procedure Performed Pulmonary Stress Test (6 min walk) Six Minute Walk Six Minute Walk: This is a 6 minute walk test. The test was performed and interpreted in accordance with the 2014 ERS/ATS task force guidelines. Findings: The patient's resting room air oxygen saturation measured by pulse oximetry was 95% and heart rate was 79 bpm. Patient ambulated for 244 meters and oxygen saturation remained 92 to 95%. Heart rate at the end of the study was 99 bpm. The patient did not qualify for supplemental oxygen at rest or with ambulation. There are no prior studies for comparison.
--- NOTE | 2022-12-24 16:48 | WPDPFTINT ---
PFT Procedure Performed PFT Procedure Performed Spirometry with Pre/Post Bronchodilator Plethysmography (Lung Vol) Diffusing Cap (DLCO) Flow Vol Loop PFT Interpretation This is a pulmonary function test with pre and post-bronchodilator spirometry, plethysmography and diffusing capacity. The test was performed and results interpreted in accordance with the 2019 and 2005 ATS/ERS Task Force guidelines respectively using the Global Lung Function Initiative-2012 reference equations. Patient demonstrated good effort and cooperation. Reproducibility criteria were met. The quality of the pre bronchodilator spirometry maneuver was Grade A and post bronchodilator spirometry maneuver was Grade A. Findings: Spirometry: There is decreased maximal expiratory airflow at all lung volumes with concave expiratory flow tracing. The contour the inspiratory flow tracing is normal. The pre bronchodilator FVC is 3.01 L, 83% predicted. The pre bronchodilator FEV1 is 1.52 L, 57% predicted. The pre bronchodilator FEV1: FVC ratio is 51%. The post bronchodilator FVC is 3.00 L, representing no change. The post bronchodilator FEV1 is 1.61 L, representing a 6% increase. The post bronchodilator FEV1: FVC ratio is 54 %. Plethysmography: The total lung capacity is 6.84 L, 102% predicted. The functional residual capacity is 4.74 L, 131% predicted. The residual volume is 3.83 L, 149% predicted. Diffusing capacity: The diffusing capacity unadjusted for hemoglobin and carboxyhemoglobin is 14.5, 64% predicted. The diffusing capacity adjusted for alveolar volume is 3.36, 91% predicted. Impression: There is a moderately severe obstructive abnormality without significant improvement after inhaling a single dose of albuterol. The increase in residual volume is consistent with air trapping from an obstructive abnormality. The diffusing capacity unadjusted for hemoglobin and carboxyhemoglobin is mildly decreased and normalizes when adjusted for alveolar volume. There are no prior studies for comparison
== END 2022-12-24 14:03 | disposition home or self-care (01) ==
LOC: ANHPFT 14:03
PROVIDERS: PCP Internal Medicine; Visit Provider Nurse Practitioner
DX: J44.9 Chronic obstructive pulmonary disease, unspecified (principal); R94.2 Abnormal results of pulmonary function studies
CPT/HCPCS: 94060; 94618; 94726; 94729

== ENCOUNTER 2023-01-22 09:16 | Outpatient (CLI) | payer MEDICARE, OTHER, SELFPAY ==
[2023-01-22 09:45] LABS: Hemoglobin 15.3 g/dL (14.0-18.0); Mean Corpuscular HGB Conc 32.6 g/dl (32-36); Mean Corpuscular Hemoglobin 31.6 pg (26-34); Mean Corpuscular Volume 97.1 fl (80-100); Mean Platelet Volume 8.2 fl (7.4-10.4); Platelet Count Result 251 k/mm3 (150-375); Red Blood Count 4.84 M/mm3 (4.6-6.20); Red Cell Distribution Width 13.3 % (11.5-14.5)
[2023-01-22 09:58] LABS: Alanine Aminotransferase 34 U/L (6-50); Albumin Level 4.3 g/dL (3.5-5.1); Alkaline Phosphatase 110 U/L (38-126); Anion Gap 9 mmol/L (8-16); Aspartate Amino Transferase 24 U/L (17-59); Bilirubin,Total 0.6 mg/dL (0.2-1.3); Blood Urea Nitrogen 22 mg/dL (9-20); CRP 1.9 mg/dL (<1.0); Calcium 9.3 mg/dL (8.4-10.2); Carbon Dioxide 24 mmol/L (22-30); Chloride 108 mmol/L (98-107); Estimated Glomerular Filt Rate 45; Glucose 95 mg/dL (65-110); Sodium 141 mmol/L (137-145)
[2023-01-22 10:16] LABS: Erythrocyte Sedimentation Rate 22 mm/hr (0-20)
== END 2023-01-22 09:17 | disposition home or self-care (01) ==
PROVIDERS: PCP Internal Medicine; Visit Provider Nurse Practitioner Family
DX: K50.10 Crohn's disease of large intestine without complications (principal)
CPT/HCPCS: 36415; 80053; 85027; 85652; 86140

== ENCOUNTER 2023-01-23 09:48 | Outpatient (CLI) | payer MEDICARE, OTHER, SELFPAY ==
[2023-01-30 17:39] LABS: Calprotectin, Stool 12 mcg/g
== END 2023-01-23 09:49 | disposition home or self-care (01) ==
PROVIDERS: PCP Internal Medicine; Visit Provider Nurse Practitioner Family
DX: K50.90 Crohn's disease, unspecified, without complications (principal)
CPT/HCPCS: 83993

== ENCOUNTER 2023-07-10 15:36 | Outpatient (CLI) | payer MEDICARE, OTHER, SELFPAY ==
--- NOTE | ~2023-07-10 | US_ITS ---
EXAMINATION:US venous doppler LE RT INDICATION:Lower extremity edema TECHNIQUE: Multiple grayscale, color flow and Doppler images of the right lower extremity deep venous systems were obtained and reviewed. COMPARISON:01/21/2013 FINDINGS: The common femoral, superficial femoral and popliteal veins demonstrate normal respiratory variation, augmentation and compressibility. Color flow is also seen within the posterior tibial, pe roneal, greater saphenous and profunda veins. IMPRESSION: 1: No lower extremity deep venous thrombosis. Reviewed, dictated and finalized at location B.
== END 2023-07-10 15:37 | disposition home or self-care (01) ==
LOC: ANHIMG 15:36
PROVIDERS: PCP Internal Medicine; Visit Provider Internal Medicine
DX: R60.0 Localized edema (principal)
CPT/HCPCS: 93971

== ENCOUNTER → 2023-12-17 09:08 | Outpatient (REF) | payer MEDICARE, OTHER, SELFPAY | LOC: ANHLAB 09:08 | PROVIDERS: PCP Internal Medicine; Visit Provider Plastic Surgery | DX: C44.92 Squamous cell carcinoma of skin, unspecified (principal) | CPT/HCPCS: 88305 ==

== ENCOUNTER 2024-01-23 10:27 | Outpatient (CLI) | payer MEDICARE, OTHER, SELFPAY ==
[2024-01-23 10:35] LABS: Hematocrit 42.6 % (42.0-52.0); Hemoglobin 14.6 g/dL (14.0-18.0); Mean Corpuscular HGB Conc 34.3 g/dl (32-36); Mean Corpuscular Hemoglobin 31.5 pg (26-34); Mean Corpuscular Volume 91.8 fl (80-100); Platelet Count Result 245 k/mm3 (150-375); Red Blood Count 4.64 M/mm3 (4.6-6.20); Red Cell Distribution Width 13.4 % (11.5-14.5); White Blood Count 5.6 K/mm3 (4.5-10.0)
[2024-01-23 10:55] LABS: Alanine Aminotransferase 20 U/L (6-50); Albumin Level 4.1 g/dL (3.5-5.1); Alkaline Phosphatase 108 U/L (38-126); Anion Gap 9 mmol/L (4-12); Aspartate Amino Transferase 21 U/L (17-59); Bilirubin,Total 0.5 mg/dL (0.2-1.3); Blood Urea Nitrogen 21 mg/dL (9-20); CRP 0.8 mg/dL (<1.0); Carbon Dioxide 21 mmol/L (22-30); Chloride 107 mmol/L (98-107); Estimated Glomerular Filt Rate 58; Glucose 103 mg/dL (65-110); Potassium 4.1 mmol/L (3.4-5.0); Sodium 137 mmol/L (137-145)
[2024-01-23 11:07] LABS: Erythrocyte Sedimentation Rate 18 mm/hr (0-20)
[2024-01-31 20:13] LABS: Calprotectin, Stool 25 mcg/g
== END 2024-01-23 10:28 | disposition home or self-care (01) ==
PROVIDERS: PCP Internal Medicine; Visit Provider Nurse Practitioner
DX: K50.10 Crohn's disease of large intestine without complications (principal); Z93.2 Ileostomy status
CPT/HCPCS: 36415; 80053; 83993; 85027; 85652; 86140

== ENCOUNTER 2024-09-03 10:50 | Outpatient (CLI) | payer MEDICARE, OTHER, SELFPAY ==
[2024-09-03 11:31] LABS: Basophils Percent Auto 0.5 % (0.2-1.2); Eosinophils Absolute Auto 0.3 K/mm3 (0-0.3); Eosinophils Percent Auto 3.9 % (0-4.4); Hematocrit 43.6 % (42.0-52.0); Hemoglobin 14.4 g/dL (14.0-18.0); Immature Granulocyte Absolute 0.01 K/mm3 (0.00-0.031); Immature Granulocyte Percent A 0.1 % (0-0.5); Lymphocytes Absolute Auto 1.36 K/mm3 (0.9-3.2); Lymphocytes Percent Auto 17.7 % (18.3-44.2); Mean Corpuscular Hemoglobin 31.2 pg (26-34); Mean Corpuscular Volume 94.4 fl (80-100); Mean Platelet Volume 8.3 fl (7.4-10.4); Monocytes Absolute Auto 0.5 K/mm3 (0.1-0.6); Monocytes Percent Auto 6.8 % (2.6-8.5); Neutrophils Absolute Auto 5.5 K/mm3 (1.3-6.7); Platelet Count Result 246 k/mm3 (150-375); Red Blood Count 4.62 M/mm3 (4.6-6.20); Red Cell Distribution Width 13.3 % (11.5-14.5); White Blood Count 7.7 K/mm3 (4.5-10.0)
[2024-09-03 11:43] LABS: Alanine Aminotransferase 26 U/L (6-50); Albumin Level 4.2 g/dL (3.5-5.1); Alkaline Phosphatase 109 U/L (38-126); Anion Gap 11 mmol/L (4-12); Aspartate Amino Transferase 27 U/L (17-59); Bilirubin,Total 0.6 mg/dL (0.2-1.3); Blood Urea Nitrogen 19 mg/dL (9-20); Calcium 9.1 mg/dL (8.4-10.2); Carbon Dioxide 22 mmol/L (22-30); Chloride 106 mmol/L (98-107); Cholesterol 150 mg/dL (0-200); Estimated Glomerular Filt Rate 57; Glucose 112 mg/dL (65-110); HDL Direct 68 mg/dL; Potassium 4.4 mmol/L (3.4-5.0); Sodium 139 mmol/L (137-145); Total Protein 7.3 g/dL (6.3-8.2); Triglycerides 98 mg/dL (<150)
[2024-09-03 11:54] LABS: LDL Cholesterol Direct 46 mg/dL
== END 2024-09-03 10:51 | disposition home or self-care (01) ==
LOC: ANHLAB 10:52
PROVIDERS: PCP Internal Medicine; Visit Provider Internal Medicine
DX: Z13.6 Encounter for screening for cardiovascular disorders (principal); Z79.899 Other long term (current) drug therapy
CPT/HCPCS: 36415; 80053; 80061; 85025

== ENCOUNTER 2025-01-18 09:49 | Outpatient (CLI) | payer MEDICARE, OTHER, SELFPAY ==
[2025-01-18 10:11] LABS: Hematocrit 47.8 % (42.0-52.0); Hemoglobin 15.6 g/dL (14.0-18.0); Mean Corpuscular HGB Conc 32.6 g/dl (32-36); Mean Corpuscular Hemoglobin 30.6 pg (26-34); Mean Corpuscular Volume 93.7 fl (80-100); Platelet Count Result 237 k/mm3 (150-375); Red Blood Count 5.10 M/mm3 (4.6-6.20); White Blood Count 6.6 K/mm3 (4.5-10.0)
[2025-01-18 10:30] LABS: Iron 127 ug/dL (49-181)
--- OUTSIDE RECORDS SUMMARY | 2025-01-18 10:31 | XMS_ITS | Clinical Summary ---
Author Organization [facility] Address [address] [place] [address] Care Team Providers Care Cnc Maintenance Mechanic Name Role Phone Konstantin Christian MD Primary Care Provider [phone] Vel Brush MD Unavailable [phone] Allergies Active Allergy Reactions Criticality Noted Date Comments Barium Iodide Unknown 05/28/2023 Clindamycin Rash Medium Iodinated Contrast Media Hives,Rash Medium Penicillins Anaphylaxis High Prednisone Unknown 04/22/2023 Radiopaque Pvc Markers-Barium Unknown 2023 Sulfamethoxazole-Trimethoprim Hives Medium 2024 Medications montelukast (SINGULAIR) 10 mg tablet TK 1 T PO QD 3 9 Active fluticasone (FLONASE) 50 mcg/actuation nasal spray SHAKE LQ AND U 2 SPRAYS IEN QD 4 9 Active magnesium oxide (MAG-OX) 400 mg (241.3 mg elemental magnesium) tabletIndication s:hypomagnesemia Take 1 tablet (400 mg total) by mouth Active PENTASA 500 mg CR capsule TK 2 CS PO BID 2 9 Active loperamide (IMODIUM) 2 mg capsule Take 1 capsule (2 mg total) by mouth Active LORazepam (ATIVAN) 0.5 mg tablet 9 Active finasteride (PROSCAR) 5 mg tablet TK 1 T PO QD 3 9 Active tamsulosin (FLOMAX) 0.4 mg extended release capsule Take 1 capsule (0.4 mg total) by mouth 4 Active ergocalciferol (VITAMIN D) 50,000 unit capsule TK 1 C PO WEEKLY 1 8 Active buPROPion SR (WELLBUTRIN SR) 100 mg 12 hr tablet Take 1 tablet (100 mg total) by mouth 3 (three) times a day Active Lactobacillus acidophilus 10 billion cell capsule Take by mouth Active potassium gluconate 600 mg (99 mg) tablet Take by mouth daily Active traZODone (DESYREL) 100 mg tablet Take 0.5 tablets (50 mg total) by mouth as needed for sleep Active minoxidiL (ROGAINE) 2 % external solution Apply topically 2 (two) times a day Active triamcinolone (KENALOG) 0.1 % ointment Apply 1 Application topically As needed Active fluticasone-umec lidin-vilanter (Trelegy Ellipta) 100-62.5-25 mcg inhaler Inhale 1 puff daily 30 each 11 5 Active albuterol HFA (PROVENTIL HFA,VENTOLIN HFA,PROAIR HFA) 90 mcg/actuation inhaler Inhale 2 puffs every 4 (four) hours as needed for wheezing or shortness of breath 6.7 g 11 5 Active Active Problems Problem Noted Date Diagnosed Date Pulmonary nodules 11/13/2023 Assessment & Plan (11/11/2024 1:30 PM CDT): These have demonstrated stability over greater than 2 years He does not qualify for annual lung cancer screening Assessment & Plan (05/13/2024 3:24 PM INGREDIENT SCALER): These demonstrated stability over greater than 2 years and he does not qualify for annual lung cancer screening Assessment & Plan (11/13/2023 3:40 PM CDT): These have been stable for many years He does not qualify for annual screening Centrilobular emphysema 11/13/2023 Assessment & Plan (11/11/2024 1:32 PM CDT): Continue Trelegy Ellipta 100 once daily at the same time Albuterol 2 puffs every 4-6 hours needed only, we have discussed indications for use Alpha1 normal MM Staff requested recent CBC from PC[facility] to evaluate eosinophils however this was not sent. He does not exacerbate frequently We have discussed signs and symptoms that would require earlier evaluation or change to his plan of care Assessment & Plan (05/13/2024 3:23 PM INGREDIENT SCALER): Continue Trelegy Ellipta 100 once daily He is aware to rinse and spit after use Albuterol as needed only, we have discussed indications for use Alpha1 buccal swab collected today I will have staff request recent CBC from [facility] to evaluate eosinophils. 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 Encounters Date Type Department Care Team Description 11/11/2024 11:00 AM CDT Office Visit [facility] Pulmonary at [address] [place] [id number] Cathie Colmenares, MOLYBDENUM STEAMER OPERATOR Centrilobular emphysema (HCC) (Primary Dx); Pulmonary nodules from Last 3 Months Medical History Medical History Date Comments Incisional hernia, with obst ruction, without gangrene Recurrent incisional hernia with incarceration - (Added by TW Conv) COPD (chronic obstructive pu lmonary disease) Pulmonary nodules 11/13/2023 Family History Medical History Relation Name Comments Breast cancer Mother Family history of malignant neoplasm of breast - (Added by TW Conv) Stroke Other Family history of cerebrovascular accident (CVA) - (Added by TW Conv) Relation Name Status Comments Mother Other Social History Tobacco Use Types Packs/Day Years Used Date Smoking Tobacco: Former Cigarettes 2 010 - 05/12/1973 Smokeless Tobacco: Never Tobacco Cessation:Counseling Given: Not Answered AUDIT-C Answer Date Recorded Frequency of Alcohol Consumption Not on file 11/11/2024 Q2: How many drinks containi ng alcohol do you have on a typical day when you are drinking? Patient does not drink Frequency of Binge Drinking Not on file 05/2024 Sex and Gender Information Value Date Recorded Sex Assigned at Not on file Legal Sex Male 3:06 AM INGREDIENT SCALER Gender Identity Not on file Sexual Orientation Not on file Last Filed Vital Signs Vital Sign Reading Time Taken Comments Blood Pressure 152/80 11/11/2024 11:02 AM CDT Pulse 87 11/11/2024 11:02 AM CDT Temperature 36.9 C (98.4 F) 11/11/2024 11:02 AM CDT Respiratory Rate 16 11/11/2024 11:02 AM CDT Oxygen Saturation 98% 11/11/2024 11:02 AM CDT Inhaled Oxygen Concentration - - Weight 72.4 kg (159 lb 9.6 oz) 11/11/2024 11:02 AM CDT Height 172.7 cm (5' 8) 11/11/2024 11:02 AM CDT Body Mass Index 24.27 11/11/2024 11:02 AM CDT Plan of Treatment Health Maintenance Due Date Last Done Comments Depression Screening 1941 Fall Risk Assessment 1940 Hepatitis B Screening 12/17/1958 Well Visit 65+ 2006 Covid-19 Vaccine (2024-2 6 season) 2024 12/05/2021, 07/14/2021, 02/14/2021, Additional history exists Influenza Vaccine (#1) 2024 , 12/24/2020, 12/24/2020, Additional history exists DTaP/Tdap/Td Vaccine (2 - Td or Tdap) 10/19/2030 10/19/2020, 10/17/2012 Pneumococcal vaccine 65+ Completed 11/02/2019, 09/08 Zoster Vaccine Completed 10/24/2022, 08/09, 03/11/2012 Insurance [facility] MEDICARE MEDICARE [facility] [id number] Care Teams Cnc Maintenance Mechanic Relationship Specialty Start Date End Date Konstantin Christian MD PCP - General 05/01/16 Vel Brush MD Consulting Physician Gastroenterology 03/25/18
--- OUTSIDE RECORDS SUMMARY | 2025-01-18 10:31 | XMS_ITS | Clinical Summary ---
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 Gender Identity Not on file Sexual Orientation Not on file Plan of Treatment Health Maintenance Due Date Last Done Comments Hepatitis C Virus (HCV) Screening 1940 TdaP Immunization 1940 Pneumococcal Immunization (5 0+ years) (1 of 1 - PCV) 12/17/1991 Zoster Immunization (1 of 2) 12/17/1991 Respiratory Syncytial Virus (RSV) Immunization (Adult) (1 - 1-dose 75+ series) 2016 Influenza Immunization (#1) 2024 SARS-COV-2 Immunization ( season) 2024 Hepatitis B Immunization Aged Out No longer eligible based on patient's age to complete this topic Human Papillomavirus (HPV) Immunization Aged Out No longer eligible b ased on patient's age to complete this topic Meningococcal Immunization (ACWY) Aged Out No longer eligible based on patient's age to complete this topic Rotavirus Immunization Aged Out No lo nger eligible based on patient's age to complete this topic
--- OUTSIDE RECORDS SUMMARY | 2025-01-18 10:31 | XMS_ITS | Clinical Summary ---
Author Organization [facility] Address [address] [place] [address] Care Team Providers Care Calenderer Name Role Phone Konstantin Christian MD Primary Care Provider [phone] Source Comments [facility],non-owned Affiliates and Associated Physician Practices is amultiple site organization consisting of ambulatory clinics and hospital sitesin [place], [place], [place] and [place]. This disclosure is being madepursuant to the Care Everywhere program and may not contain all information available regarding this patient. 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 AND DRUG COUNSELOR Gender Identity Not on file Sexual Orientation Not on file Plan of Treatment Health Maintenance Due Date Last Done Comments MEDICARE AWV 12 MONTHS 1940 DTAP/TDAP/TD VACCINES (1 - Tdap) 1960 PNEUMOCOCCAL VACCINE 50+ (1 of 1 - PCV) 12/17/1991 ZOSTER VACCINE (1 of 2) 12/17/1991 Respiratory Syncytial Virus (RSV) Vaccine Pt: or over 60 yrs (1 - 1-dose 75+ series) 2016 DEPRESSION SCREENING 03/11/2024 COVID-19 VACCINE (1 - 2023-2 5 season) 2024 INFLUENZA VACCINE (#1) 2024 HEPATITIS B VACCINE Aged Out No longe r eligible based on patient's age to complete this topic HIB VACCINE Aged Out No longer eligi ble based on patient's age to complete this topic HPV VACCINE Aged Out No longer eligi ble based on patient's age to complete this topic MENINGOCOCCAL (Group B) VACC INE SHARED DECISION-MAKING Aged Out No longer eligibl e based on patient's age to complete this topic MENINGOCOCCAL GROUPS A/C/Y/W VACCINE Aged Out No longer eligible b ased on patient's age to complete this topic Insurance [employer] MEDICARE [employer] SELF PAY NO INSURANCE Member Subscriber Plan / Payer (Ef fective for All Dates) Name:Quan N[place] Member ID:Not on file Relation to Subscriber:Not on file Name:ODILON NJCHUCKY Wheeler Subscriber ID:Not on file (Home) Address: [address] [place] [address] Payer ID:Not on file Group ID:Not on file Type:Self Pay Address: [place], [place] Care Teams Calenderer Relationship Specialty Start Date End Date Konstantin Christian MD PCP - General 11/25/20
[2025-01-18 10:33] LABS: Alanine Aminotransferase 35 U/L (6-50); Albumin Level 4.4 g/dL (3.5-5.1); Alkaline Phosphatase 119 U/L (38-126); Anion Gap 6 mmol/L (4-12); Aspartate Amino Transferase 31 U/L (17-59); Bilirubin,Total 0.6 mg/dL (0.2-1.3); Blood Urea Nitrogen 21 mg/dL (9-20); CRP 0.5 mg/dL (<1.0); Calcium 9.3 mg/dL (8.4-10.2); Carbon Dioxide 23 mmol/L (22-30); Chloride 109 mmol/L (98-107); Estimated Glomerular Filt Rate 52; Glucose 111 mg/dL (65-110); Potassium 4.6 mmol/L (3.4-5.0); Sodium 138 mmol/L (137-145); Total Protein 7.7 g/dL (6.3-8.2)
[2025-01-18 10:40] LABS: Percent Iron Saturation 41 % (20-50)
[2025-01-18 11:12] LABS: Ferritin 66.70 ng/mL (11.1-264)
[2025-01-18 11:25] LABS: Vitamin B12 823.0 pg/mL (239-931)
== END 2025-01-18 09:50 | disposition home or self-care (01) ==
LOC: ANHLAB 09:51
PROVIDERS: PCP Internal Medicine; Visit Provider Nurse Practitioner
DX: K50.10 Crohn's disease of large intestine without complications (principal); R19.5 Other fecal abnormalities; Z93.2 Ileostomy status; Z90.49 Acquired absence of other specified parts of digestive tract
CPT/HCPCS: 36415; 80053; 82306; 82607; 82728; 83540; 83550; 85027; 85652; 86140

== ENCOUNTER 2025-02-15 15:25 | Outpatient (CLI) | payer MEDICARE, OTHER, SELFPAY ==
[2025-02-18 08:08] LABS: Calprotectin, Fecal 16 ug/g (0-120)
== END 2025-02-15 15:26 | disposition home or self-care (01) ==
LOC: ANHLAB 15:26
PROVIDERS: PCP Internal Medicine; Visit Provider Nurse Practitioner
DX: K50.90 Crohn's disease, unspecified, without complications (principal); R19.5 Other fecal abnormalities; Z90.49 Acquired absence of other specified parts of digestive tract; Z93.2 Ileostomy status
CPT/HCPCS: 83993

== ENCOUNTER 2025-02-26 14:21 | Emergency (ER) | payer MEDICARE, OTHER, SELFPAY ==
[2025-02-26] VITALS (17 sets, daily range): BP systolic 140–163; BP diastolic 74–132; PULSE 86–115; RESP 12–34; TEMP 36.6; O2SAT 95–100
--- NOTE | ~2025-02-26 | XR_ITS ---
EXAMINATION: XR chest 1V portable COMPARISON: Comparison 05/18/2022. HISTORY: sob FINDINGS: Small left basilar infiltrate and effusion. No pneumothorax. Heart is normal size. Mediastinal and hilar contours are within normal limits. Bony thorax no acute abnormality. Miscellaneous: None Impression: Small left lower lobe pneumonia Reviewed, dictated and finalized at location [employer]. 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
--- OUTSIDE RECORDS SUMMARY | 2025-02-26 14:24 | XMS_ITS | Clinical Summary ---
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
--- OUTSIDE RECORDS SUMMARY | 2025-02-26 14:24 | XMS_ITS | Clinical Summary ---
Author Organization [facility] Address [address] [place] [address] Care Team Providers Care Cook Specialty Foreign Food Name Role Phone Konstantin Christian MD Primary Care Provider [phone] Source Comments [facility],non-owned Affiliates and Associated Physician Practices is amultiple site organization consisting of ambulatory clinics and hospital sitesin [place], [place] and [place]. This disclosure is being madepursuant to the Care Everywhere program and may not contain all information available regarding this patient. 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
--- OUTSIDE RECORDS SUMMARY | 2025-02-26 14:24 | XMS_ITS | Patient Health Record ---
Author Organization [facility] As [place] Address [address] [place] [address] Care Team Providers Care Accounting Lecturer Name Role Phone Konstantin Christian MD Primary Care Provider Unavaila Bess Cruz Unavailable [phone] Allergies Allergen (clinical drug ingredient) Drug/Non Drug Allergy documented on EMR Reaction Allergy Type Onset Date Status Barium Iodide BARIUM IODIDE (uncoded) Unknown Allergy 05/28/2023 Active E-Z-HD BARIUM (uncoded) Unknown Allergy 05/28/2023 Active Iodinated contrast media (substance) IODINATED CONTRAST MEDIA (uncoded) Unknown Allergy 05/28/2023 Active Barium Sulfate Unknown Drug Allergy 05/28/2023 A ctive clindamycin Clindamycin Unknown Drug Allergy 05/28/2023 Ac tive Substance with penicillin structure and antibacterial mechanism of action (substance) Penicillins Unknown Drug Allergy 05/28/2023 Active Reason For Referral No Information Medications Medication SIG (Take, Route, Frequency, Duration) Notes Start Date End Date Status Fluconazole 100 MG Tablet Oral 05/28/2023 Not-Taking Tamsulosin HCl 0.4 MG Capsule Oral 05/28/2023 Active Finasteride 5 MG Tablet Oral 05/28/2023 Active Fluticasone Propionate Diskus 50 MCG/ACT Aerosol Powder Breath Activated Inhalation *Reorder from [employer] for eRx and Interaction Alerts* 05/28/2023 Active LORazepam 0.5 MG Tablet 1 to 2 tabs Oral daily; Duration: 30 days As needed 12/23/2024 Active buPROPion HCl 100 MG Tablet 1 tablet Oral in the morning, at noon and at 4pm; Duration: 30 days 12/23/2024 Active Rogaine *Pick strength-form from [employer] for eRX* 05/28/2023 Active Probiotic Active Magnesium Active Potassium 99 MG Tablet 1 tablet Orally Once a day Active Vitamin D Active Trelegy Ellipta Acti ve TESTOSTERONE 20.25 MG/1.25 GRAM PER PUMP ACT.(1.62 %) TRANSDERMAL GEL *Reorder from [employer] for eRx and Interaction Alerts* 05/28/2023 Not-Taking Immunizations Vaccine Route Administration Date Status Comme nts Influenza, high dose seasonal Unknown 02/07/2015 Admini stered Influenza, high dose seasonal Unknown 12/10/2016 Admini stered Influenza, high dose seasonal Unknown 12/09/2017 Admini stered Influenza, high dose seasonal Unknown 11/13/2018 Admini stered Influenza, high-dose seasona l, quadrivalent, preservative free >65 yrs Unknown 11/02/2019 Administered Influenza, high-dose seasona l, quadrivalent, preservative free >65 yrs Unknown 12/03/2019 Administered Influenza, seasonal, injecta ble, preservative free, 3 yrs and above Unknown 01/28/2012 Administered Influenza, seasonal, injecta ble, preservative free, 3 yrs and above Unknown 12/30/2012 Administered Influenza, seasonal, injecta ble, preservative free, 3 yrs and above Unknown 12/31/2013 Administered Influenza, unspecified formulation Unknown 12/20/2017 A dministered Moderna Covid-19 Vaccine 1st dose Unknown 05/09/2020 Ad ministered Moderna Covid-19 Vaccine 1st dose Unknown 06/17/2020 Ad ministered Moderna Covid-19 Vaccine 1st dose Unknown 02/14/2021 Ad ministered Moderna Covid-19 Vaccine 1st dose Unknown 07/14/2021 Ad ministered Pneumococcal conjugate PCV 13 Unknown 09/26/2015 Admini stered Pneumococcal polysaccharide PPV23 Unknown 11/02/2019 Ad ministered Tetanus toxoid, adsorbed Unknown 10/17/2012 Administere d Zoster Unknown 03/11/2012 Administered Zoster Unknown 10/24/2022 Administered Social History Tobacco Use: Social History Observation Description Date Details (start date - stop date) Former Smoker NA - NA Sex Assigned At : Social History Observation Description Sex Assigned At Male Social History Miscellaneous: Social Info Question Answer Notes Safety issues: Do you feel safe at home? Yes Are there any firearms in the house? No Household: Social Info Question Answer Notes Household Marital status: single Drug/Alcohol: Social Info Question Answer Notes Drugs Have you used drugs other than those for medical reasons in the past 12 months? No Tobacco Use: Social Info Question Answer Notes Tobacco Control (Standard) Tobacco use: Former smoker How long has it been since you last smoked? 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 No Do you drink alcohol? Occasional ly Section Notes: Social History Substance Use Do you or have you ever smoked tobacco?: Former smoker How many years have you smoked tobacco?: 50 How much tobacco do you smoke?: None Do you or have you ever used any other forms of tobacco or nicotine?: No Do you or have you ever used e-cigarettes or vape?: Never used electronic cigarettes Do you or have you ever used smokeless tobacco?: Never used smokeless tobacco How much tobacco do you chew?: none What was the date of your most recent tobacco screening?: 05/28/2023 Has tobacco cessation counseling been provided?: No What is your level of alcohol consumption?: Occasional How many years have you consumed alcohol?: 50 Have you ever been counseled for unhealthy alcohol use?: No Do you use any illicit or recreational drugs?: No Which illicit or recreational drugs have you used?: Pot Have you used IV drugs?: No What is your level of caffeine consumption?: Moderate Education and Occupation What is the highest grade or level of school you have completed or the highest degree you have received?: Master's degree (e.g., MA, MS, Yves, MEd, INTERNATIONAL BANKER, [employer]) Are you currently employed?: No Who is your employer?: retired, [employer] Marriage and Sexuality What is your relationship status?: Single Are you sexually active?: No Do you use protection during sex?: Always How many children do you have?: 0 Home and Environment Do you have any siblings?: 1 brother Are there any smokers in your house?: No Are there any guns present in your home?: No Advance Directive Do you have an advance directive?: Yes Do you have a medical power of traffic law attorney?: Yes Public Health and Travel Have you been to an area known to be high risk for COVID-19?: No Activities of Daily Living Are you able to care for yourself?: Yes Other Accident Related Injury: No Family history of heart disease?: No High blood pressure: No High Cholesterol: No Past steroid/HgH use?: No Gender Identity and LGBTQ Identity Gender identity: Identifies as Male Assigned sex at : Male Pronouns: he/him Social History Substance Use Do you or have you ever smoked tobacco?: Former smoker How many years have you smoked tobacco?: 50 How much tobacco do you smoke?: None Do you or have you ever used any other forms of tobacco or nicotine?: No Do you or have you ever used e-cigarettes or vape?: Never used electronic cigarettes Do you or have you ever used smokeless tobacco?: Never used smokeless tobacco How much tobacco do you chew?: none What was the date of your most recent tobacco screening?: 05/28/2023 Has tobacco cessation counseling been provided?: No What is your level of alcohol consumption?: Occasional How many years have you consumed alcohol?: 50 Have you ever been counseled for unhealthy alcohol use?: No Do you use any illicit or recreational drugs?: No Which illicit or recreational drugs have you used?: Pot Have you used IV drugs?: No What is your level of caffeine consumption?: Moderate Education and Occupation What is the highest grade or level of school you have completed or the highest degree you have received?: Master's degree (e.g., MA, MS, Yves, MEd, [employer], [employer]) Are you currently employed?: No Who is your employer?: retired, [employer] Marriage and Sexuality What is your relationship status?: Single Are you sexually active?: No Do you use protection during sex?: Always How many children do you have?: 0 Home and Environment Do you have any siblings?: 1 brother Are there any smokers in your house?: No Are there any guns present in your home?: No Advance Directive Do you have an advance directive?: Yes Do you have a medical power of traffic law attorney?: Yes Activities of Daily Living Are you able to care for yourself?: Yes Gender Identity and LGBTQ Identity Gender identity: Identifies as Male Assigned sex at : Male Pronouns: he/him Social History Substance Use Do you or have you ever smoked tobacco?: Former smoker How many years have you smoked tobacco?: 50 How much tobacco do you smoke?: None Do you or have you ever used any other forms of tobacco or nicotine?: No Do you or have you ever used e-cigarettes or vape?: Never used electronic cigarettes Do you or have you ever used smokeless tobacco?: Never used smokeless tobacco How much tobacco do you chew?: none What was the date of your most recent tobacco screening?: 05/28/2023 Has tobacco cessation counseling been provided?: No What is your level of alcohol consumption?: Occasional How many years have you consumed alcohol?: 50 Have you ever been counseled for unhealthy alcohol use?: No Do you use any illicit or recreational drugs?: No Which illicit or recreational drugs have you used?: Pot Have you used IV drugs?: No What is your level of caffeine consumption?: Moderate Education and Occupation What is the highest grade or level of school you have completed or the highest degree you have received?: Master's degree (e.g., MA, MS, Yves, MEd, INTERNATIONAL B[employer], [employer]) Are you currently employed?: No Who is your employer?: retired, [employer] Marriage and Sexuality What is your relationship status?: Single Are you sexually active?: No Do you use protection during sex?: Always How many children do you have?: 0 Home and Environment Do you have any siblings?: 1 brother Are there any smokers in your house?: No Are there any guns present in your home?: No Advance Directive Do you have an advance directive?: Yes Do you have a medical power of traffic law attorney?: Yes Activities of Daily Living Are you able to care for yourself?: Yes Gender Identity and LGBTQ Identity Gender identity: Identifies as Male Assigned sex at : Male Pronouns: he/him Problems Problem Type SNOMED Code ICD Code Onset Dates Problem Status W/U Status Risk Notes Problem Mild recurrent major depression (22938338) Major depressive disorder, recurrent, mild (F33.0) 4 Active confirmed Problem Recurrent major depression in full remission (74355833) Major depressive disorder, recurrent, in full remission (F33.42) Active confirmed Problem Generalized anxiety disorder (34567431) Generalized anxiety disorder (F41.1) 4 Active confirmed Problem Primary insomnia (9041599) Primary insomnia (F51.01) 4 Active confirmed Problem Ileostomy present (796184675) Ileostomy present (Z93.2) 7 Active confirmed Vital Signs Heart Rate 95 /min 12/23/2024 Height-cm 172.72 cm 12/23/2024 Blood pressure diastolic 88 mm Hg 12/23/2024 Weight-kg 72.58 kg 12/23/2024 Height 68.00 in 12/23/2024 Blood pressure systolic 142 mm Hg 12/23/2024 Weight 160 lbs 12/23/2024 BMI 24.33 kg/m2 12/23/2024 Encounters Encounter Location Date Provider Diagnosis [facility] [employer] [place] [address] [facility] [address] [address] 03/30/2024 Bess Weathers Generalized anxiety disorder F41.1 ; Major depressive disorder, recurrent, mild F33.0 ; Primary insomnia F51.01 and Blood pressure elevated without history of HTN R03.0 [facility] [employer] [address] [address] 06/24/2024 Bess Weathers Generalized anxiety disorder F41.1 ; Major depressive disorder, recurrent, in full remission F33.42 ; Primary insomnia F51.01 ; Benign essential HTN I10 ; Ileostomy present Z93.2 and Encounter for screening for depression Z13.31 [facility] [employer] [place] [address] [address] 09/23/2024 Bess Weathers Major depressive disorder, recurrent, mild F33.0 ; Generalized anxiety disorder F41.1 ; Primary insomnia F51.01 and Benign essential HTN I10 [facility] [employer] [facility] [address] [address] 12/23/2024 Bess Weathers Major depressive disorder, recurrent, mild F33.0 ; Generalized anxiety disorder F41.1 and Primary insomnia F51.01 Assessments Encounter Date Diagnosis (ICD Code) Assessment Notes Treatment Notes Treatment Clinical Notes Section Notes 03/30/2024 Major depressive disorder, recurrent, mild (ICD-10 - F33.0) Depression and Anxiety - Mood is stable - Anxiety mild and manageable Plan: - continue burpropion IR 100 mg three times a day - continue lorazepam 0.5 mg 1 - 2 tablets a day as needed for anxiety, no refill needed at this time BP elevates today, no history of hypertension - Monitor follow up 3 months, sooner if concerns arise 03/30/2024 Generalized anxiety disorder (ICD-10 - F41.1) Depression and Anxiety - Mood is stable - Anxiety mild and manageable Plan: - continue burpropion IR 100 mg three times a day - continue lorazepam 0.5 mg 1 - 2 tablets a day as needed for anxiety, no refill needed at this time BP elevates today, no history of hypertension - Monitor follow up 3 months, sooner if concerns arise 06/24/2024 Major depressive disorder, recurrent, in full remission (ICD-10 - F33.42) - Continue bupropion HCl 100 mg twice a day - Monitor for any changes in mood or return of depressive symptoms 06/24/2024 Generalized anxiety disorder (ICD-10 - F41.1) - Continue lorazepam 0.5 mg, 1-2 tablets daily as needed. continue mimized use - Encourage ongoing engagement in social activities as tolerated - Follow up in 3 months 09/23/2024 Major depressive disorder, recurrent, mild (ICD-10 - F33.0) 09/23/2024 Generalized anxiety disorder (ICD-10 - F41.1) - Continue lorazepam 0.5 mg, 1-2 tablets daily as needed. continue minimized use - Encourage ongoing engagement in social activities as tolerated - Follow up in 3 months 12/23/2024 Major depressive disorder, recurrent, mild (ICD-10 - F33.0) - Continue bupropion HCl 100 mg twice a day - Encourage ongoing engagement in social activities as tolerated - Monitor for any changes in mood or return of depressive symptoms - Follow-up in 3 months, sooner should concerns arise 12/23/2024 Generalized anxiety disorder (ICD-10 - F41.1) - Continue lorazepam 0.5 mg, 1-2 tablets daily as needed. continue minimized use 12/23/2024 Primary insomnia (ICD-10 - F51.01) - Continue to practice good sleep hygiene 09/23/2024 Primary insomnia (ICD-10 - F51.01) 06/24/2024 Primary insomnia (ICD-10 - F51.01) 03/30/2024 Primary insomnia (ICD-10 - F51.01) Depression and Anxiety - Mood is stable - Anxiety mild and manageable Plan: - continue burpropion IR 100 mg three times a day - continue lorazepam 0.5 mg 1 - 2 tablets a day as needed for anxiety, no refill needed at this time BP elevates today, no history of hypertension - Monitor follow up 3 months, sooner if concerns arise 03/30/2024 Blood pressure elevated without history of HTN (ICD-10 - R03.0) Depression and Anxiety - Mood is stable - Anxiety mild and manageable Plan: - continue burpropion IR 100 mg three times a day - continue lorazepam 0.5 mg 1 - 2 tablets a day as needed for anxiety, no refill needed at this time BP elevates today, no history of hypertension - Monitor follow up 3 months, sooner if concerns arise 09/23/2024 Benign essential HTN (ICD-10 - I10) 06/24/2024 Benign essential HTN (ICD-10 - I10) 06/24/2024 Ileostomy present (ICD-10 - Z93.2) 06/24/2024 Encounter for screening for depression (ICD-10 - Z13.31) 06/24/2024 Jacobo Nj, a patient with a history of Crohn's disease and anxiety, presents for follow-up with stable mood and manageable anxiety on current medication regimen. Anxiety Assessment: Patient reports anxiety is currently manageable. He notes increased social interaction as the weather improves, which has led to more frequent use of Ativan. However, during colder weather when he was less socially active, he did not require Ativan as often. Patient spends most of his time at home in his studio, which may serve as a coping mechanism for anxiety management. Plan: - Continue current medication regimen, including Ativan as needed for anxiety - Encourage ongoing engagement in social activities as tolerated - Follow up in 3 months Mood Disorder Assessment: Patient reports good mood stability on current medication regimen. He denies any thoughts of self-harm and expresses positive outlook, stating he is glad for every day. Current medication mix appears to be effective in managing mood symptoms. Plan: - Continue current medication regimen - Monitor for any changes in mood or return of depressive symptoms - Follow up in 3 months Crohn's Disease Assessment: Patient reports Crohn's disease has not been affected for quite a while now. He maintains a good appetite and reports eating well, including when dining out at restaurants. Patient uses an ostomy bag, which affects his sleep pattern due to the need to empty it approximately every 4 hours. Plan: - Continue current management for Crohn's disease - Encourage maintaining current diet and eating habits - Follow up in 3 months Sleep Disturbance Assessment: Patient reports interrupted sleep due to the need to empty his ostomy bag approximately every 4 hours. He compensates for this by occasionally napping during the day when his schedule allows, particularly after lunch. Patient acknowledges he may be lean on sleep in a 24-hour period. Plan: - Continue current sleep management strategies, including daytime naps as needed - Monitor for any worsening of sleep disturbance or associated daytime fatigue - Follow up in 3 months 09/23/2024 Other - Continue bupropion HCl 100 mg twice a day - Monitor for any changes in mood or return of depressive symptoms 12/23/2024 Other Quan Nj is a male patient with history of depression, anxiety, and insomnia managed with bupropion and lorazepam who reports recent physical injuries from an impact and memory concerns discussed with his GP. Depression and anxiety Patient reports managing okay without feeling overwhelmed or anxious. Experiences occasional down moments but describes mood as pretty normal and fluid. Denies significant depression or suicidal thoughts. Sleep remains disrupted by ostomy, waking after 3.5-4 hours but able to doze intermittently and nap after lunch. Reports current psychiatric medications have been helping. Plan: - Continue bupropion 100 mg tablets, one morning, noon, and around 4 p.m. (3 total daily) - Continue lorazepam 0.5 mg, 1-2 tablets daily as needed for anxiety - No side effect concerns reported - Follow-up in 3 months Memory concerns Patient reports forgetting things and discussed concerns about potential Alzheimer's disease with his GP Konstantin Christian a couple weeks ago. Patient acknowledges uncertainty about whether he has Alzheimer's but is concerned about memory changes. Currently still functioning well with preserved activities of daily living including driving and self-care abilities. Plan: - Monitor for worsening cognitive changes or memory concerns - Dementia workup, Alzheimer's workup, and cognitive testing available if significant impairment develops - Medications and further workups available if testing indicates significant impairment Medical Decision Making Quan Nj is a male patient with psychiatric history presenting for routine follow-up, reporting recent physical trauma with bruising to shoulder and knee but maintaining stable mood without significant depression or suicidal ideation. The patient's current psychiatric symptoms appear well-controlled on his existing medication regimen of bupropion and lorazepam, with no reported side effects or concerns requiring medication adjustments. Sleep patterns remain consistent with his baseline ostomy-related interruptions every 3-4 hours, which is expected given his medical condition. The patient's recent concerns about memory difficulties discussed with his primary care physician Dr. Konstantin Christian were addressed, with reassurance that his current functional status including driving and self-care abilities suggest no immediate cognitive impairment requiring urgent intervention. Given his stable presentation and adequate symptom control, continued monitoring with current treatment approach is appropriate, with consideration for formal cognitive testing if memory concerns worsen in the future. Plan Of Treatment No Information Insurance Providers Payer Name Payer Address Payer Phone Subscriber Number Group Number Insured Name Patient Relationship to Insured Coverage Start Date Coverage End Date [place] [address] [place] [address] [id number] QUAN RICE Self - patient is the insured [facility] Benefits Plan Ppo [address] [place] [address] [id number] JAKOBPRICILA Jacobsen QUAN Self - patient is the insured Medical (General) History Medical History History ICD Code Depressive disorder Generalized anxiety disorder Primary insomnia Benign prostatic hyperplasia without low er urinary tract symptoms N40.0 Crohn's disease, unspecified, without co mplications K50.90 Chronic obstructive pulmonary disease, u nspecified J44.9 Hyperlipidemia, unspecified E78.5 Tremor, unspecified R25.1 Ileostomy present Z93.2 Surgical History Surgery Date(Month/Year) Ileostomy/jejunostomy (38949) Surgical revision intestine (11197) 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
--- OUTSIDE RECORDS SUMMARY | 2025-02-26 14:24 | XMS_ITS | Clinical Summary ---
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
--- NOTE | 2025-02-26 15:57 | ECG_ITS ---
Test Date: 2025-02-26 16:01:49 Measurements Intervals [place] Rate: 99 P: 73 WI: 140 QRS: 20 QRSD: 88 T: 73 QT: 339 QTc: 435 Interpretive Statements SINUS RHYTHM WITH SINUS ARRHYTHMIA BASELINE ARTIFACT- I, II, III, AVR, AVL, AVF, V1-V2 NORMAL ECG No previous ECG available for comparison Electronically Signed On 02-26-2025 21:05:45 [employer] by Eduardo Stern D.O.
[2025-02-26 16:14] LABS: Hematocrit 52.2 % (42.0-52.0); Hemoglobin 17.8 g/dL (14.0-18.0); Immature Granulocyte Percent A 0.3 % (0-0.5); Lymphocytes Absolute Auto 0.86 K/mm3 (0.9-3.2); Mean Corpuscular HGB Conc 34.1 g/dl (32-36); Mean Corpuscular Hemoglobin 31.3 pg (26-34); Mean Corpuscular Volume 91.9 fl (80-100); Nucleated Red Blood Cells Absolute Auto 0.000 K/mm3 (0.0-0.012); Nucleated Red Blood Cells Perc 0.0 % (0.0-0.2); Platelet Count Result 184 k/mm3 (150-375); Red Blood Count 5.68 M/mm3 (4.6-6.20); White Blood Count 6.6 K/mm3 (4.5-10.0)
[2025-02-26 16:25] LABS: Alanine Aminotransferase 67 U/L (6-50); Albumin Level 4.9 g/dL (3.5-5.1); Alkaline Phosphatase 137 U/L (38-126); Anion Gap 13 mmol/L (4-12); Aspartate Amino Transferase 57 U/L (17-59); Bilirubin,Total 0.9 mg/dL (0.2-1.3); Blood Urea Nitrogen 20 mg/dL (9-20); Calcium 9.7 mg/dL (8.4-10.2); Carbon Dioxide 21 mmol/L (22-30); Chloride 100 mmol/L (98-107); Estimated CRCL calculation 32 ml/min; Estimated Glomerular Filt Rate 44; Glucose 145 mg/dL (65-110); Potassium 4.2 mmol/L (3.4-5.0); Sodium 134 mmol/L (137-145); Total Protein 8.9 g/dL (6.3-8.2)
[2025-02-26] MEDS: ALBUTEROL SULFATE NEB 2.5 MG/3 ML INH 10 MG INHALATION (16:27)
[2025-02-26] MEDS: IPRATROPIUM BR 0.02% INH SOLN 0.5 MG/2.5 ML VIAL 1 MG INHALATION (16:28)
--- OUTSIDE RECORDS SUMMARY | 2025-02-26 16:29 | XMS_ITS | Clinical Summary ---
Author Organization [facility] Address [address] [place] [address] Care Team Providers Care Vascular Radiologist Name Role Phone Konstantin Christian MD Primary Care Provider [phone] Source Comments [facility],non-owned Affiliates and Associated Physician Practices is amultiple site organization consisting of ambulatory clinics and hospital sitesin [place], [place], [place] and [place]. This disclosure is being madepursuant to the Care Everywhere program and may not contain all information available regarding this patient. 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 Gender Identity Not on file Sexual Orientation [...] age to complete this topic Insurance [facility] Address: [facility] [id number] [place] [address] MEDICARE [facility] Address: [address] [place] [address] SELF PAY NO INSURANCE Member Subscriber Plan / Payer (Ef fective for All Dates) Name:Quan Nj Member ID:Not on file Relation to Subscriber:Not on file Name:ODILON NJCHUCKY Wheeler Subscriber ID:Not on file (Home) Address: [address] [place] [address] Payer ID:Not on file Group ID:Not on file Type:Self Pay Address: [place], [place] Care Teams Vascular Radiologist Relationship Specialty Start Date End Date Konstantin Christian MD PCP - General 11/25/20
--- OUTSIDE RECORDS SUMMARY | 2025-02-26 16:29 | XMS_ITS | Clinical Summary ---
Author Organization [facility] Address [address] [place] [address] Care Team Providers Care Postdoctoral Research Associate Name Role Phone Konstantin Christian MD Primary Care Provider Vel Brush MD Unavailable [phone] Allergies Active Allergy Reactions Criticality Noted Date [...] screening Assessment & Plan (05/13/2024 3:24 PM GROUND SYSTEMS ENGINEER): These demonstrated stability over greater than 2 [...] care Assessment & Plan (05/13/2024 3:23 PM GROUND SYSTEMS ENGINEER): Continue Trelegy Ellipta 100 once daily He [...] on file Legal Sex Male 3:06 AM GROUND SYSTEMS ENGINEER Gender Identity Not on file Sexual Orientation [...] Zoster Vaccine Completed 10/24/2022, 08/09, 03/11/2012 Insurance [employer] [facility] MEDICARE MEDICARE [facility] [id number] Care Teams Postdoctoral Research Associate Relationship Specialty Start Date End Date Konstantin Christian MD PCP - General 05/01/16 Vel Brush MD Consulting Physician Gastroenterology 03/25/18
--- OUTSIDE RECORDS SUMMARY | 2025-02-26 16:29 | XMS_ITS | Clinical Summary ---
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
[2025-02-26 18:16] LABS: Influenza A QL RT-PCR Negative (Negative); Influenza B QL RT-PCR Negative (Negative); RSV RNA, RT-PCR Negative (Negative); SARS-CoV-2 RNA PCR Negative (Negative)
--- NOTE | 2025-02-26 18:48 | PC.NURSE ---
Patient walked at this time and patient oxygen saturation remained at 92% and above. MD Abdul notified.
--- NOTE | 2025-02-26 18:58 | ED.GENADULT ---
HPI - General Adult General Chief complaint: Shortness of Breath/Dyspnea Stated complaint: SOB Time Seen by Provider: 02/26/25 15:52 History of Present Illness HPI narrative: Patient is an 84-year-old male who presents ER with shortness of breath. Ongoing over last week. Saw his PCP and was placed on azithromycin. Continues to have coughing and dyspnea. Denies any fevers but he does feel hot and chilled at times. History of smoking but quit 27 years ago. His nebulizer is not working at home. He does not tolerate steroids. Related Data Home Medications ?Medication ?Instructions ?Recorded ?Confirmed ?Last Taken ?Type finasteride 5 mg tablet 5 mg PO DAILY 01/20/20 01/18/25 11/23/20 History fluticasone propionate 50 1 spray intranasal BID 01/20/20 01/18/25 11/24/20 05:00 History mcg/actuation nasal spray,suspension (Allergy Relief (fluticasone)) lactobacillus combination no.8 3 250 mmu cells PO DAILY 01/20/20 01/18/25 11/23/20 History billion cell capsule (Adult Probiotic) tamsulosin 0.4 mg capsule 0.4 mg PO DAILY 01/20/20 01/18/25 11/23/20 History magnesium oxide 400 mg PO DAILY 07/21/20 01/18/25 11/23/20 History potassium 99 mg tablet 99 mg PO DAILY 07/21/20 01/18/25 11/23/20 History albuterol sulfate 90 mcg/actuation 1 puff inhalation QID PRN 10/19/20 01/18/25 11/17/20 History aerosol inhaler Shortness Of Breath fluticasone fur. 100 mcg-umeclid 1 inh inhalation DAILY 10/19/20 01/18/25 11/23/20 History 62.5 mcg-vilant 25 mcg inhalat.powder (Trelegy Ellipta) lorazepam 0.5 mg tablet 0.5 mg PO DAILY PRN Anxiety 10/19/20 01/18/25 11/24/20 04:00 History trazodone 50 mg tablet 50 mg PO HS PRN Sleep 10/19/20 01/18/25 11/22/20 History acetaminophen 500 mg tablet 1,000 mg PRN PRN Pain 11/23/20 01/18/25 11/24/20 01:30 History loperamide 2 mg-simethicone 125 mg 1 tablet PO Q3H PRN Constipation 07/20/21 01/18/25 Unknown History tablet bupropion HCl 100 mg tablet 100 mg PO TID 01/31/22 01/18/25 Unknown History Allergies Allergy/AdvReac Type Severity Reaction Status Date / Time Penicillins Allergy Severe Anaphylactic Verified 02/26/25 14:34 Shock prednisone Allergy Severe DYSPNEA, Verified 02/26/25 14:34 Dizziness clindamycin Allergy Unknown Itching/Zachery Verified 02/26/25 14:34 h Iodinated Contrast Media Allergy Unknown Itching Verified 02/26/25 14:34 Review of Systems Review of Systems: All systems reviewed & are unremarkable except as noted in HPI and below Constitutional: Constitutional: Reports no additional constitutional complaints ENT: Reports system reviewed and no additional complaints, except as documented Cardiovascular: Cardiovascular: Reports no additional cardiovascular complaints Respiratory: Respiratory: Reports no additional respiratory complaints PMFSH Past Medical History Medical History Anxiety Benign prostatic hyperplasia Chronic low back pain Chronic obstructive pulmonary disease Crohn's disease Depression with anxiety Gastroesophageal reflux disease Ileostomy in place Loose stools Migraine headache Osteoarthritis Surgical History Surgical History History of bilateral cataract extraction History of exploratory laparotomy (02/03/13) Exploratory laparotomy with extensive adhesiolysis, partial small-bowel resection, takedown and ileostomy with creation of new ileostomy and 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 Status post colectomy (1991) Total colectomy in 1991 with subsequent ileostomy. Family History Family History Mother Family history of malignant neoplasm of breast in first degree relative Family history of Alzheimer's disease Family history of arthritis Breast cancer Father Cerebrovascular accident Family history of coronary artery disease Social History Social History Social History: Primary care physician: Dr. Konstantin Christian Surrogate decision maker: Taylor Davis, friend. Code status: Full code. Smoking packs per day: 1 Smoking cigarettes per day: 20.0 Years smoked: 45 Smoking pack-years: 45.00 Smoking status: Never smoker Tobacco type: cigarettes Second hand tobacco smoke exposure: No Smoking end date: 09/08/09 Alcohol intake: current Drinks per week: 2 Substance use: never Substance use type: does not use Living arrangements: alone Additional living arrangements comments: The patient lives alone in [place]. He has no children. He was in 2002 than his ex- in 2006. 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 Spiritual care concerns: No Exam Narrative: GENERAL: Well-appearing, well-nourished, and in no acute distress. HEAD: Normocephalic, atraumatic. ENT: Mucous membranes moist. NECK: Supple. CHEST: Coarse rales and wheezing bilaterally. No respiratory distress. HEART: Regular rate and rhythm. Normal peripheral pulses. ABDOMEN: Soft, nontender, nondistended,. EXTREMITIES: Normal range of motion. No edema. SKIN: Warm, dry, no rash. NEURO: Alert and oriented x3. PSYCH: Normal mood and affect. Course Course Emergency Course: Patient resting comfortably. Informed of results. Breathing markedly better after nebulizer treatment. Ambulatory without hypoxia. He would prefer discharge home with oral antibiotics and he will purchase a new nebulizer machine. Vital Signs Vital signs: Vital Signs Temperature 97.8 F 02/26/25 14:30 Pulse Rate 106 H 02/26/25 14:30 Respiratory Rate 22 H 02/26/25 14:30 Blood Pressure 145/81 H 02/26/25 14:30 Pulse Oximetry 95 02/26/25 14:30 Oxygen Delivery Room Air 02/26/25 14:30 Temperature 97.8 F 02/26/25 14:30 Pulse Rate 102 H 02/26/25 18:50 Respiratory Rate 21 H 02/26/25 18:50 Blood Pressure 158/76 H 02/26/25 18:50 Pulse Oximetry 97 02/26/25 18:50 Oxygen Delivery Room Air 02/26/25 15:56 [facility] Differential Diagnosis Differential Diagnosis: Pneumonia, COPD exacerbation, pneumothorax, ACS Lab Data [facility] Lab Attestation statement: I personally reviewed the patient's lab results. 02/26/25 16:06 02/26/25 16:06 Labs: Lab Results 02/26/25 02/26/25 Range/Units 16:06 16:45 WBC 6.6 (4.5-10.0) K/mm3 RBC 5.68 (4.6-6.20) M/mm3 Hgb 17.8 (14.0-18.0) g/dL Hct 52.2 H (42.0-52.0) % MCV 91.9 (80-100) fl MCH 31.3 (26-34) pg MCHC 34.1 (32-36) g/dl RDW 13.5 (11.5-14.5) % Plt Count 184 (150-375) k/mm3 MPV 8.9 (7.4-10.4) fl Immature Gran % (Auto) 0.3 (0-0.5) % Neut % (Auto) 78.4 H (45.5-73.1) % Lymph % (Auto) 13.0 L (18.3-44.2) % [place] % (Auto) 7.9 (2.6-8.5) % Eos % (Auto) 0.2 (0-4.4) % Baso % (Auto) 0.2 (0.2-1.2) % Lymph # (Auto) 0.86 L (0.9-3.2) K/mm3 [place] # (Auto) 0.5 (0.1-0.6) K/mm3 Eos # (Auto) 0.0 (0-0.3) K/mm3 Baso # (Auto) 0.0 (0.0-0.1) K/mm3 Abs Immat Gran (auto) 0.02 (0.00-0.031) K/mm3 Absolute Neuts (auto) 5.2 (1.3-6.7) K/mm3 Absolute Nucleated RBC 0.000 (0.0-0.012) K/mm3 Nucleated RBC % 0.0 (0.0-0.2) % Sodium 134 L (137-145) mmol/L Potassium 4.2 (3.4-5.0) mmol/L Chloride 100 (98-107) mmol/L Carbon Dioxide 21 L (22-30) mmol/L Anion Gap 13 H (4-12) mmol/L BUN 20 (9-20) mg/dL Creatinine 1.52 H (0.7-1.3) mg/dL Estim Creat Clear Calc 32 ml/min Estimated GFR 44 L (59 - ) Glucose 145 H (65-110) mg/dL Calcium 9.7 (8.4-10.2) mg/dL Total Bilirubin 0.9 (0.2-1.3) mg/dL AST 57 (17-59) U/L ALT 67 H (6-50) U/L Alkaline Phosphatase 137 H (38-126) U/L Total Protein 8.9 H (6.3-8.2) g/dL Albumin 4.9 (3.5-5.1) g/dL Influenza A (RT-PCR) Negative (Negative) Influenza B (RT-PCR) Negative (Negative) RSV (RT-PCR) Negative (Negative) SARS-CoV-2 RNA (RT-PCR) Negative (Negative) Imaging Data Radiologist's impression: ITS Impressions Chest X-Ray 02/26/25 17:01 Impression: Small left lower lobe pneumonia Discharge Plan Discharge Clinical Impression: Pneumonia, COPD (chronic obstructive pulmonary disease) Patient Disposition: Home Condition: Stable Instructions: Antibiotic Form, COPD (Chronic Obstructive Pulmonary Disease) (ED), Pneumonia (ED) Additional Instructions: Please return to the emergency department if you develop severe and persistent chest pain, difficulty breathing, dizziness, leg swelling or if you are coughing up blood as these can be signs of a medical emergency. Please call your doctor for a follow up appointment to determine the need for further testing. Patient Language: Micronesian Prescriptions: New (DME) nebulizers Misc See Rx Instructions .Route Qty: 1 0RF Rx Instructions: As directed doxycycline hyclate 100 mg capsule 100 mg PO BID Qty: 10 0RF ipratropium-albuterol 0.5 mg-3 mg(2.5 mg base)/3 mL solution for nebulization 3 ml inhalation QID PRN (Reason: shortness of breath) Qty: 90 0RF No Action magnesium oxide 400 mg magnesium capsule 400 mg PO DAILY potassium 99 mg tablet 99 mg PO DAILY tamsulosin 0.4 mg capsule 0.4 mg PO DAILY finasteride 5 mg tablet 5 mg PO DAILY fluticasone propionate [Allergy Relief (fluticasone)] 50 mcg/actuation spray,suspension 1 spray intranasal BID Rx Instructions: administer into each nostril Adult Probiotic 3 billion cell capsule 250 mmu cells PO DAILY Rx Instructions: administer with a meal loperamide-simethicone 2-125 mg tablet 1 tablet PO Q3H PRN (Reason: Constipation) Rx Instructions: do not exceed 4 tabs in 24 hrs bupropion HCl 100 mg tablet 100 mg PO TID Rx Instructions: administer 6 hours apart (DME) skin barrier, softflex ring 48 MM (10/bx) holstr See Rx Instructions .Route .MEDSUPPLY Qty: 10 11RF Rx Instructions: As directed (DME) Pouch, ostomy DRN w/trans FLTR 57 MM (10/bx) holster See Rx Instructions .Route .MEDSUPPLY Qty: 1 11RF Rx Instructions: As directed cholestyramine (with sugar) [Questran] 4 gram powder in packet 4 g PO BID Qty: 60 3RF Rx Instructions: administer w/meal; avoid other meds within 1hr before or 4-6hr after dose trazodone 50 mg tablet 50 mg PO HS PRN (Reason: Sleep) lorazepam 0.5 mg tablet 0.5 mg PO DAILY PRN (Reason: Anxiety) Trelegy Ellipta 100-62.5-25 mcg blister with device 1 inh INHALATION DAILY albuterol sulfate 90 mcg/actuation Hfa Aerosol Inhaler 1 puff INHALATION QID PRN (Reason: Shortness Of Breath) acetaminophen 500 mg Tablet 1,000 mg PRN PRN (Reason: Pain) Follow-up/Referrals: Gino,MD Konstantin [Primary Care Provider] - 1 Week
== END 2025-02-26 19:45 | disposition home or self-care (01) ==
PROVIDERS: Emergency Provider Emergency Medicine; PCP Internal Medicine
DX: J18.9 Pneumonia, unspecified organism (principal); J44.9 Chronic obstructive pulmonary disease, unspecified; F41.9 Anxiety disorder, unspecified; K50.90 Crohn's disease, unspecified, without complications; F32.A Depression, unspecified; K21.9 Gastro-esophageal reflux disease without esophagitis; M19.90 Unspecified osteoarthritis, unspecified site
CPT/HCPCS: 36415; 71045; 80053; 85025; 87637; 93005; 94640; 99284

== ENCOUNTER 2025-02-27 09:40 | Inpatient (IN) | payer OTHER, SELFPAY ==
[2025-02-27] VITALS (20 sets, daily range): BP systolic 128–165; BP diastolic 55–93; PULSE 83–104; RESP 12–31; TEMP 36.4; O2SAT 94–100; BMI 26.6
[2025-02-27] MEDS: IPRATROPIUM 0.5 MG/ALBUTEROL SULFATE 2.5 MG (BASE) AMPUL.NEB 3 ML INHALATION ×3 (10:18→20:27)
[2025-02-27] MEDS: SODIUM CHLORIDE 0.9% IV 1,000 ML 999 ML IV CONT (10:39)
--- NOTE | 2025-02-27 10:41 | PC.NURSE ---
Pt. not having any nausea but will let this RN know if it returns. Zofran not administered at this time.
[2025-02-27 10:51] LABS: Hematocrit 50.0 % (42.0-52.0); Hemoglobin 17.4 g/dL (14.0-18.0); Immature Granulocyte Percent A 0.1 % (0-0.5); Lymphocytes Absolute Auto 0.69 K/mm3 (0.9-3.2); Mean Corpuscular HGB Conc 34.8 g/dl (32-36); Mean Corpuscular Hemoglobin 31.5 pg (26-34); Mean Corpuscular Volume 90.6 fl (80-100); Nucleated Red Blood Cells Absolute Auto 0.000 K/mm3 (0.0-0.012); Nucleated Red Blood Cells Perc 0.0 % (0.0-0.2); Platelet Count Result 184 k/mm3 (150-375); Red Blood Count 5.52 M/mm3 (4.6-6.20); White Blood Count 7.0 K/mm3 (4.5-10.0)
[2025-02-27 11:08] LABS: Alanine Aminotransferase 58 U/L (6-50); Albumin Level 4.6 g/dL (3.5-5.1); Alkaline Phosphatase 131 U/L (38-126); Anion Gap 15 mmol/L (4-12); Aspartate Amino Transferase 51 U/L (17-59); Bilirubin,Total 1.1 mg/dL (0.2-1.3); Blood Urea Nitrogen 26 mg/dL (9-20); Calcium 9.5 mg/dL (8.4-10.2); Carbon Dioxide 20 mmol/L (22-30); Chloride 99 mmol/L (98-107); Estimated CRCL calculation 30 ml/min; Estimated Glomerular Filt Rate 42; Glucose 144 mg/dL (65-110); Potassium 4.5 mmol/L (3.4-5.0); Sodium 134 mmol/L (137-145); Total Protein 8.2 g/dL (6.3-8.2)
--- NOTE | 2025-02-27 13:30 | ED.SOB ---
HPI - SOB/Dyspnea General Chief Complaint: Shortness of Breath/Dyspnea Stated Complaint: cough, weak Time Seen by Provider: 02/27/25 09:48 History of Present Illness HPI Narrative: Patient is an 84-year-old male who presents ER with cough and weakness. He was seen in the ER last night. He was originally being treated with azithromycin but due to shortness of breath and wheezing he was seen and treated last night. X-ray confirmed pneumonia. No leukocytosis. He is provided with doxycycline for home to take in addition to the azithromycin. He did take 1 tablet last night but was unable to swallow a tablet this morning as it felt like it was getting potentially stuck and he was having dry heaving which is new. Patient feels increased weakness and continues to have dyspnea. He is unable take prednisone due to side effects of dyspnea and dizziness. Patient reports he is not feeling safe at home. Related Data Home Medications ?Medication ?Instructions ?Recorded ?Confirmed ?Last Taken ?Type finasteride 5 mg tablet 5 mg PO DAILY 01/20/20 02/27/25 11/23/20 History fluticasone propionate 50 1 spray intranasal BID 01/20/20 02/27/25 11/24/20 05:00 History mcg/actuation nasal spray,suspension (Allergy Relief (fluticasone)) lactobacillus combination no.8 3 250 mmu cells PO DAILY 01/20/20 02/27/25 11/23/20 History billion cell capsule (Adult Probiotic) tamsulosin 0.4 mg capsule 0.4 mg PO DAILY 01/20/20 02/27/25 11/23/20 History magnesium oxide 400 mg PO DAILY 07/21/20 02/27/25 11/23/20 History potassium 99 mg tablet 99 mg PO DAILY 07/21/20 02/27/25 11/23/20 History albuterol sulfate 90 mcg/actuation 1 puff inhalation QID PRN 10/19/20 02/27/25 11/17/20 History aerosol inhaler Shortness Of Breath fluticasone fur. 100 mcg-umeclid 1 inh inhalation DAILY 10/19/20 02/27/25 11/23/20 History 62.5 mcg-vilant 25 mcg inhalat.powder (Trelegy Ellipta) lorazepam 0.5 mg tablet 0.5 mg PO DAILY PRN Anxiety 08/01/2902/27/25 11/24/20 04:00 History trazodone 50 mg tablet 50 mg PO HS PRN Sleep 10/19/20 02/27/25 11/22/20 History loperamide 2 mg-simethicone 125 mg 1 tablet PO Q3H PRN Constipation 07/20/21 02/27/25 Unknown History tablet bupropion HCl 100 mg tablet 100 mg PO TID 01/31/22 02/27/25 Unknown History cholecalciferol (vitamin D3) 100 100 mcg PO DAILY 02/27/25 02/27/25 Unknown History mcg (4,000 unit) tablet loperamide 2 mg capsule 2 mg PO DAILY 02/27/25 02/27/25 Unknown History (Anti-Diarrheal (loperamide)) tadalafil 5 mg tablet 5 mg PO DAILY 02/27/25 02/27/25 Unknown History Allergies Allergy/AdvReac Type Severity Reaction Status Date / Time Penicillins Allergy Severe Anaphylactic Verified 02/27/25 16:46 Shock prednisone Allergy Severe DYSPNEA, Verified 02/27/25 16:46 Dizziness clindamycin Allergy Unknown Itching/Zachery Verified 02/27/25 16:46 h Iodinated Contrast Media Allergy Unknown Itching Verified 02/27/25 16:46 Review of Systems Review of Systems: All systems reviewed & are unremarkable except as noted in HPI and below Constitutional: Constitutional: Reports no additional constitutional complaints Cardiovascular: Cardiovascular: Reports no additional cardiovascular complaints Respiratory: Respiratory: Reports no additional respiratory complaints Gastrointestinal: Gastrointestinal: Reports no additional gastrointestinal complaints Musculoskeletal: Musculoskeletal: Reports no additional musculoskeletal complaints [facility] Past Medical History Medical History Anxiety Ileostomy in place Depression Chronic low back pain Migraine headache Chronic obstructive pulmonary disease Benign prostatic hyperplasia Osteoarthritis Gastroesophageal reflux disease Crohn's disease Surgical History Surgical History Status post colectomy (1991) Total colectomy in 1991 with subsequent ileostomy. 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 Family History Family History Mother Family history of malignant neoplasm of breast in first degree relative Family history of Alzheimer's disease Family history of arthritis Breast cancer Father Cerebrovascular accident Family history of coronary artery disease Social History Social History Social History: Primary care physician: Dr. Konstantin Christian Surrogate decision maker: Taylor Davis, friend. Code status: Full code. Smoking packs per day: 1 Smoking cigarettes per day: 20.0 Years smoked: 50 Smoking pack-years: 50.00 Smoking status: Former smoker Tobacco type: cigarettes Second hand tobacco smoke exposure: No Smoking end date: 09/08/09 Alcohol intake: never Drinks per week: 2 Substance use: never Substance use type: does not use Lack of Transportation: No Lack of Food: Never True Current Housing: I Have Housing Concerned About Future Housing: No Difficulty Paying Gas/Electric Bills: No Difficulty Paying for Meds: No Currently Unemployed: No Education: Master's Degree or Higher Difficulty w/ Childcare or Family Care: No Living arrangements: alone Additional living arrangements comments: The patient lives alone in [place]. He has no children. He was in 2002 than his ex- in 2006. 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 Spiritual care concerns: No Exam Narrative: GENERAL: Well-appearing, well-nourished, and in no acute distress. HEAD: Normocephalic, atraumatic. ENT: Mucous membranes moist. NECK: Supple. CHEST: Clear to auscultation. No respiratory distress. HEART: Regular rate and rhythm. Normal peripheral pulses. ABDOMEN: Soft, nontender, nondistended. EXTREMITIES: Normal range of motion. No edema. SKIN: Warm, dry, no rash. NEURO: Alert and oriented x3. PSYCH: Normal mood and affect. Course Course Emergency Course: Patient was able to get up and had use a walker to walk. He was not hypoxic but continues to verbalize crease weakness and concerns for his safety at home. Vital Signs Vital signs: Vital Signs Temperature 97.6 F 02/27/25 09:48 Pulse Rate 100 02/27/25 09:48 Respiratory Rate 26 H 02/27/25 09:48 Blood Pressure 145/85 H 02/27/25 09:48 Pulse Oximetry 97 02/27/25 09:48 Oxygen Delivery Room Air 02/27/25 09:48 Temperature 97.6 F 02/27/25 09:48 Pulse Rate 95 02/27/25 15:00 Respiratory Rate 22 H 02/27/25 15:00 Blood Pressure 164/92 H 02/27/25 14:16 Pulse Oximetry 96 02/27/25 14:16 Oxygen Delivery Room Air 02/27/25 17:22 MDM Differential Diagnosis Differential Diagnosis: Pneumonia, dehydration, sepsis, COPD exacerbation. Lab Data 02/27/25 10:42 02/27/25 10:42 Labs: Lab Results 02/27/25 Range/Units 10:42 WBC 7.0 (4.5-10.0) K/mm3 RBC 5.52 (4.6-6.20) M/mm3 Hgb 17.4 (14.0-18.0) g/dL Hct 50.0 (42.0-52.0) % MCV 90.6 (80-100) fl MCH 31.5 (26-34) pg MCHC 34.8 (32-36) g/dl RDW 13.3 (11.5-14.5) % Plt Count 184 (150-375) k/mm3 MPV 8.3 (7.4-10.4) fl Immature Gran % (Auto) 0.1 (0-0.5) % Neut % (Auto) 84.7 H (45.5-73.1) % Lymph % (Auto) 9.9 L (18.3-44.2) % [place] % (Auto) 5.2 (2.6-8.5) % Eos % (Auto) 0.0 (0-4.4) % Baso % (Auto) 0.1 L (0.2-1.2) % Lymph # (Auto) 0.69 L (0.9-3.2) K/mm3 [place] # (Auto) 0.4 (0.1-0.6) K/mm3 Eos # (Auto) 0.0 (0-0.3) K/mm3 Baso # (Auto) 0.0 (0.0-0.1) K/mm3 Abs Immat Gran (auto) 0.01 (0.00-0.031) K/mm3 Absolute Neuts (auto) 5.9 (1.3-6.7) K/mm3 Absolute Nucleated RBC 0.000 (0.0-0.012) K/mm3 Nucleated RBC % 0.0 (0.0-0.2) % Sodium 134 L (137-145) mmol/L Potassium 4.5 (3.4-5.0) mmol/L Chloride 99 (98-107) mmol/L Carbon Dioxide 20 L (22-30) mmol/L Anion Gap 15 H (4-12) mmol/L BUN 26 H (9-20) mg/dL Creatinine 1.58 H (0.7-1.3) mg/dL Estim Creat Clear Calc 30 ml/min Estimated GFR 42 L (59 - ) Glucose 144 H (65-110) mg/dL Calcium 9.5 (8.4-10.2) mg/dL Total Bilirubin 1.1 (0.2-1.3) mg/dL AST 51 (17-59) U/L ALT 58 H (6-50) U/L Alkaline Phosphatase 131 H (38-126) U/L Total Protein 8.2 (6.3-8.2) g/dL Albumin 4.6 (3.5-5.1) g/dL Procalcitonin 0.3 ng/mL Discharge Plan Discharge Clinical Impression: Pneumonia Patient Disposition: Still a Patient Condition: Stable
--- NOTE | 2025-02-27 14:19 | PC.NURSE ---
Pt. friends at bedside alerted this RN that the pt. is requesting another breathing treatment. Pt. also requesting to be admitted. Dr. Abdul notified. Pt. and pt. friends updated of plan of care at this time. Dr. Abdul waiting to hear back from hospitalist and will put in breathing treatment.
--- NOTE | 2025-02-27 14:23 | PC.NURSE ---
Pt. c/o nausea. Verbal order placed for zofran.
[2025-02-27] MEDS: ONDANSETRON INJ 4 MG/2 ML VIAL IV PUSH (14:33)
--- NOTE | 2025-02-27 16:10 | WPCEDHO ---
ED Hand Off Checklist All vitals saved:Yes IV Site documented:Yes All med administrations documented:Yes Triage Note Triage Note Pt. to ED for hospital admission. 02/27/25 09:48 Pt. was at the ER yesterday, diagnosed with pneumonia and COPD . He was offered admission but declined and d/c home with antibiotics. Pt. returns to ED today to request admission d/t increased SOB, dizziness, and dry heaves. Allergies Penicillins Allergy (Severe, Verified 02/27/25 09:54) Anaphylactic Shock prednisone Allergy (Severe, Verified 02/27/25 09:54) DYSPNEA, Dizziness off balance and breathing problems clindamycin Allergy (Unknown, Verified 02/27/25 09:54) Itching/Rash Iodinated Contrast Media Allergy (Unknown, Verified 02/27/25 09:54) Itching Family History (Last Reviewed 02/27/25 @ 15:09 by Lynn Jung APRN) Mother Family history of malignant neoplasm of breast in first degree relative Family history of Alzheimer's disease Family history of arthritis Breast cancer Father Cerebrovascular accident Family history of coronary artery disease Administered/Completed Medications Discontinued Medications Albuterol/Ipratropium (Ipratropium 0.5 Mg/Albuterol Sulfate 2.5 Mg (Base) Ampul.Neb 3 Ml) 3 ml INHALATION ONCE STA Stop: 02/27/25 09:58 Last Admin: 02/27/25 10:18 Dose: 3 ml Documented By: PAIGE Albuterol/Ipratropium (Ipratropium 0.5 Mg/Albuterol Sulfate 2.5 Mg (Base) Ampul.Neb 3 Ml) 3 ml INHALATION ONCE STA Stop: 02/27/25 14:28 Last Admin: 02/27/25 14:45 Dose: 3 ml Documented By: KAREN Sodium Chloride (Normal Saline Iv) 1,000 mls @ 999 mls/hr IV CONT .Q1H1M STA Stop: 02/27/25 10:57 Last Infusion: 02/27/25 12:10 Dose: Infused Documented By: Admin: 02/27/25 10:39 Dose: 999 mls/hr Documented By: HILTON Ondansetron HCl (Ondansetron Inj 4 Mg/2 Ml Vial) 4 mg IV PUSH ONCE STA Stop: 02/27/25 09:58 Last Admin: 02/27/25 10:41 Dose: Not Given Documented By: HILTON Non-Admin Reason: No Dose Required Ondansetron HCl (Ondansetron Inj 4 Mg/2 Ml Vial) 4 mg IV PUSH ONCE STA Stop: 02/27/25 14:24 Last Admin: 02/27/25 14:33 Dose: 4 mg Documented By: HILTON Notes 02/27/25 14:23 Nurse Note by Komal Loco Pt. c/o nausea. Verbal order placed for zofran. Initialized on 02/27/25 14:23 - END OF NOTE 02/27/25 14:19 Nurse Note by Komal Loco Pt. friends at bedside alerted this RN that the pt. is requesting another breathing treatment. Pt. also requesting to be admitted. Dr. Abdul notified. Pt. and pt. friends updated of plan of care at this time. Dr. Abdul waiting to hear back from hospitalist and will put in breathing treatment. Initialized on 02/27/25 14:19 - END OF NOTE 02/27/25 10:41 Nurse Note by Komal Loco Pt. not having any nausea but will let this RN know if it returns. Zofran not administered at this time. Initialized on 02/27/25 10:41 - END OF NOTE Interventions/Assessments IV / Saline Lock, Insert Start: 02/27/25 09:47 Freq: Status: Active Protocol: Document 02/27/25 10:38 KJT (Rec: 02/27/25 10:39 KJT [id number]) IV Assessment Peripheral Access Right Antecubital IV Catheter Access Initiated IV Insertion Date 02/27/25 IV Insertion Time 10:39 Catheter Gauge 20 IV Insertion 1 Attempts Ultrasound Used for No Placement IV Site Assessment WNL IV Care and WNL Maintenance PA: Cardiovascular Assessment Start: 02/27/25 09:47 Freq: Status: Active Protocol: Document 02/27/25 09:48 KJT (Rec: 02/27/25 09:54 KJT [id number]) Cardiovascular Assessment Cardiovascular Chest Pain,Dizziness,Dyspnea,Lightheadedness,Nausea Symptoms Skin Description Normal Color Additional chest pain only when coughing Cardiovascular Assessment Comments Chest Pain Assessment Chest Pain Intensity 8 Chest Pain Location Midsternal Description and Tightness Symptoms Precipitating Coughing Factors Jugular Vein None Distention Comments chest pain only when dry heaving or coughing PA: Respiratory Assessment Start: 02/27/25 09:47 Freq: Status: Active Protocol: Document 02/27/25 09:48 KJT (Rec: 02/27/25 09:54 KJT [id number]) Respiratory Assessment Symptoms Congestion,Cough,Shortness of Breath at Rest,Shortness of Breath With Exertion Effort Normal Pattern Regular Depth Normal Chest Expansion Symmetrical Cough Description None,Non-Productive Cough Frequency Intermittent Last Vital Signs Temperature 97.6 F 02/27/25 09:48 Pulse Rate 95 02/27/25 15:00 Respiratory Rate 22 H 02/27/25 15:00 Pulse Oximetry 96 02/27/25 14:16 Blood Pressure 164/92 H 02/27/25 14:16 Blood Pressure Mean 113 02/27/25 14:16 Blood Pressure Position Sitting 02/27/25 10:38 Oxygen Delivery Room Air 02/27/25 09:48 Weight 67 kg 02/27/25 09:48 Last Result - Abnormals Only Neut % (Auto) 84.7 % (45.5-73.1) H 02/27/25 10:42 Lymph % (Auto) 9.9 % (18.3-44.2) L 02/27/25 10:42 Baso % (Auto) 0.1 % (0.2-1.2) L 02/27/25 10:42 Lymph # (Auto) 0.69 K/mm3 (0.9-3.2) L 02/27/25 10:42 Sodium 134 mmol/L (137-145) L 02/27/25 10:42 Carbon Dioxide 20 mmol/L (22-30) L 02/27/25 10:42 Anion Gap 15 mmol/L (4-12) H 02/27/25 10:42 BUN 26 mg/dL (9-20) H 02/27/25 10:42 Creatinine 1.58 mg/dL (0.7-1.3) H 02/27/25 10:42 Estimated GFR 42 (59-) L 02/27/25 10:42 Glucose 144 mg/dL (65-110) H 02/27/25 10:42 ALT 58 U/L (6-50) H 02/27/25 10:42 Alkaline Phosphatase 131 U/L (38-126) H 02/27/25 10:42 Most Recent Suicide Severity Rating Suicide Severity Rating NO RISK INDICATED 02/27/25 09:48
--- NOTE | 2025-02-27 16:20 | ADMGEN ---
This patient, Quan Martinez, was admitted to [facility] Surg Room 317-01. Patient/family oriented to hospital policies and general routines including ID bracelet, bed and alarms, visiting hours, pain management, procedures, bathroom and other care routines, personal items, smoking policy, room service/diet, and visiting hours. Information on how to activate the Rapid Response Team has been discussed. Patient/Family are encouraged to report perceived risks to care and to ask questions if they do not understand what they are told or what they should do.
[2025-02-27] MEDS: cefTRIAXone 1 GM in SODIUM CHLORIDE 0.9% IV 50 ML 100 ML IVPB (16:58)
[2025-02-27] MEDS: LACTATED RINGERS 1,000 ML 999 ML IV CONT (17:58)
[2025-02-27] MEDS: AZITHROMYCIN IV 500 MG in SODIUM CHLORIDE 0.9% IV 250 ML IVPB (17:59)
[2025-02-27 18:11] LABS: Procalcitonin 0.3 ng/mL
[2025-02-27] MEDS: guaiFENesin 12 HR 600 MG TABCR PO (20:50)
[2025-02-27] MEDS: HYDROcodone/acetaminophen (*CRX) 5-325 MG TABLET 1 TAB PO (20:50)
[2025-02-27] MEDS: LACTATED RINGERS 1,000 ML 75 ML IV CONT (21:24)
--- NOTE | 2025-02-27 23:50 | PM.IMHP2 ---
H&P: HPI History of Present Illness Date/Time: 02/27/25 23:50 Chief Complaint: Shortness of Breath Narrative: 84 y/o M with PMH of COPD, Crohn's Disease, depression/anxiety, BPH, ileostomy, and migraines presents here with shortness of breath. The patient presents on 02/27 for further evaluation of shortness of breath, dizziness, and nausea. HPI obtained through patient report chart review. He was initially evaluated yesterday [facility] on 02/26. At that time he reported shortness of breath that has been ongoing for the past week. He was initially evaluated by his PCP and placed on azithromycin on 02/22. Despite initiation of oral antibiotics he continued to have dyspnea, cough, and subjective hot sensation/chills without fever. He has a past medical history significant for COPD and he is a former smoker, however had cessation 27 years ago. He typically uses a nebulizer at home, however is not currently working and he does not tolerate oral steroids (reports SE including dyspnea and dizziness - specifically prednisone). He was given a nebulizer treatment in the ER and reported marked improvement. X-ray at that time showed pneumonia. Ambulatory pulse ox was evaluated and no hypoxia was noted. He was discharged home with an additional antibiotic, doxycycline. He reported he plan to buy a new nebulizer machine. However he is returning today as he feels he is no longer able to care for himself at home due to his symptoms which today include shortness of breath, dizziness, diarrhea, headache, and nausea without vomiting. He was additionally unable to tolerate his oral antibiotics starting this morning, able to take 1 dose last night. Currently denies chest pain and feels less foggy/confused than when he first arrived. Initial VS at presentation: 97.6? F, HR 100, R 26, 145/85, and 97% on RA. ED workup showed: No leukocytosis, no anemia, sodium 134, creatinine 1.58 and GFR 42 (previously 1.52 and GFR 44 on 02/26), glucose 144. Viral PCR negative on 02/26. CXR from 02/26 showed a small left lower lobe pneumonia. Review of Systems Review of Systems: All systems reviewed & are unremarkable except as noted in HPI and below PMFSH Past Medical History Medical History Anxiety Ileostomy in place Depression Chronic low back pain Migraine headache Chronic obstructive pulmonary disease Benign prostatic hyperplasia Osteoarthritis Gastroesophageal reflux disease Crohn's disease Surgical History Surgical History Status post colectomy (1991) Total colectomy in 1991 with subsequent ileostomy. 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 Family History Family History Mother Family history of malignant neoplasm of breast in first degree relative Family history of Alzheimer's disease Family history of arthritis Breast cancer Father Cerebrovascular accident Family history of coronary artery disease Social History Social History Social History: Primary care physician: Dr. Konstantin Christian Surrogate decision maker: Taylor Davis, friend. Code status: Full code. Smoking packs per day: 1 Smoking cigarettes per day: 20.0 Years smoked: 50 Smoking pack-years: 50.00 Smoking status: Former smoker Tobacco type: cigarettes Second hand tobacco smoke exposure: No Smoking end date: 09/08/09 Alcohol intake: never Drinks per week: 2 Substance use: never Substance use type: does not use Lack of Transportation: No Lack of Food: Never True Current Housing: I Have Housing Concerned About Future Housing: No Difficulty Paying Gas/Electric Bills: No Difficulty Paying for Meds: No Currently Unemployed: No Education: Master's Degree or Higher Difficulty w/ Childcare or Family Care: No Living arrangements: alone Additional living arrangements comments: The patient lives alone in [place]. He has no children. He was in 2002 than his ex- in 2006. 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 Spiritual care concerns: No Meds Home Medications and Allergies Home Medications ?Medication ?Instructions ?Recorded ?Confirmed ?Type finasteride 5 mg tablet 5 mg PO DAILY 01/20/20 02/27/25 History fluticasone propionate 50 1 spray intranasal BID 01/20/20 02/27/25 History mcg/actuation nasal spray,suspension (Allergy Relief (fluticasone)) lactobacillus combination no.8 3 250 mmu cells PO DAILY 01/20/20 02/27/25 History billion cell capsule (Adult Probiotic) tamsulosin 0.4 mg capsule 0.4 mg PO DAILY 01/20/20 02/27/25 History magnesium oxide 400 mg PO DAILY 07/21/20 02/27/25 History potassium 99 mg tablet 99 mg PO DAILY 07/21/20 02/27/25 History albuterol sulfate 90 mcg/actuation 1 puff inhalation QID PRN 10/19/20 02/27/25 History aerosol inhaler Shortness Of Breath fluticasone fur. 100 mcg-umeclid 1 inh inhalation DAILY 10/19/20 02/27/25 History 62.5 mcg-vilant 25 mcg inhalat.powder (Trelegy Ellipta) lorazepam 0.5 mg tablet 0.5 mg PO DAILY PRN Anxiety 10/19/20 02/27/25 History trazodone 50 mg tablet 50 mg PO HS PRN Sleep 10/19/20 02/27/25 History loperamide 2 mg-simethicone 125 mg 1 tablet PO Q3H PRN Constipation 07/20/21 02/27/25 History tablet Pouch, ostomy DRN w/trans FLTR 57 #1 ea 01/31/22 02/27/25 Rx MM (10/bx) holster bupropion HCl 100 mg tablet 100 mg PO TID 01/31/22 02/27/25 History skin barrier, softflex ring 48 MM #10 ea 01/31/22 02/27/25 Rx (10/bx) holstr ipratropium 0.5 mg-albuterol 3 mg 3 ml inhalation QID PRN shortness 02/26/25 02/27/25 Rx (2.5 mg base)/3 mL nebulization of breath #90 mL soln nebulizers #1 ea 02/26/25 02/27/25 Rx cholecalciferol (vitamin D3) 100 100 mcg PO DAILY 02/27/25 02/27/25 History mcg (4,000 unit) tablet loperamide 2 mg capsule 2 mg PO DAILY 02/27/25 02/27/25 History (Anti-Diarrheal (loperamide)) tadalafil 5 mg tablet 5 mg PO DAILY 02/27/25 02/27/25 History Allergies Allergy/AdvReac Type Severity Reaction Status Date / Time Penicillins Allergy Severe Anaphylactic Verified 02/27/25 16:46 Shock prednisone Allergy Severe DYSPNEA, Verified 02/27/25 16:46 Dizziness clindamycin Allergy Unknown Itching/Zachery Verified 02/27/25 16:46 h Iodinated Contrast Media Allergy Unknown Itching Verified 02/27/25 16:46 Vital Signs Vital Signs - 24 hr 02/27/25 09:48 02/27/25 10:01 02/27/25 10:19 Temperature 97.6 F Pulse Rate 100 98 97 Respiratory Rate 26 H 21 H 17 Blood Pressure 145/85 H 130/79 Pulse Oximetry 97 97 Oxygen Delivery Room Air 02/27/25 10:24 02/27/25 10:38 02/27/25 10:45 Temperature Pulse Rate 95 97 89 Respiratory Rate 31 H 23 H 20 Blood Pressure 141/75 H 136/67 Pulse Oximetry 97 98 Oxygen Delivery 02/27/25 11:15 02/27/25 11:30 02/27/25 11:45 Temperature Pulse Rate 89 96 96 Respiratory Rate 20 18 12 Blood Pressure 151/75 H 152/81 H 164/83 H Pulse Oximetry 99 100 99 Oxygen Delivery 02/27/25 12:00 02/27/25 12:15 02/27/25 12:30 Temperature Pulse Rate 95 88 83 Respiratory Rate 20 13 22 H Blood Pressure 152/86 H 156/93 H 148/73 H Pulse Oximetry 99 98 97 Oxygen Delivery 02/27/25 12:45 02/27/25 13:00 02/27/25 14:16 Temperature Pulse Rate 94 96 94 Respiratory Rate 13 23 H 26 H Blood Pressure 157/87 H 165/82 H 164/92 H Pulse Oximetry 99 97 96 Oxygen Delivery 02/27/25 14:45 Temperature Pulse Rate 96 Respiratory Rate 26 H Blood Pressure Pulse Oximetry Oxygen Delivery Exam Narrative: crackles in the left lower lung Const: General: comfortable and no acute distress Other: , male, elderly, nontoxic appearance home with modest ill appearance, improved HENMT: Face/Nose/Sinus: Normal nares present Mouth: Yes moist mucous membranes Eyes: General: appearance normal, both eyes and all related structures Sclera: sclerae normal Pupils: Equal, round and reactive pupils present EOM: EOMs intact bilaterally Resp: Effort & Inspection: normal respiratory effort Other: Faint expiratory wheeze intermittently. Crackles in the left lung base, faint. No other adventitious lung sounds. Cardio: Rate: regular rate Rhythm: regular rhythm Other: S1-S2 present without murmur, rub, ectopy GI: Other: Abdomen soft, nondistended, nontender. Normoactive bowel sounds in all quadrants. Ileostomy present. Skin: General skin exam: normal color and no rashes or lesions noted Wounds: no wounds Neuro: Speech: normal speech Motor exam (neuro): 5/5 motor strength present throughout Sensory Exam: normal sensation Other: A&O x4 Extrem: General: normal to inspection Psych: Mental Status: mental status grossly normal Affect: normal affect Other: Good insight and judgment, very pleasant Results Labs Labs: Short CBC 02/27/25 Range/Units 10:42 WBC 7.0 (4.5-10.0) K/mm3 Hgb 17.4 (14.0-18.0) g/dL Hct 50.0 (42.0-52.0) % Plt Count 184 (150-375) k/mm3 BMP 02/27/25 10:42 Sodium 134 L Potassium 4.5 Chloride 99 Carbon Dioxide 20 L BUN 26 H Creatinine 1.58 H Glucose 144 H Calcium 9.5 Liver Function 02/27/25 Range/Units 10:42 Total Bilirubin 1.1 (0.2-1.3) mg/dL AST 51 (17-59) U/L ALT 58 H (6-50) U/L Alkaline Phosphatase 131 H (38-126) U/L Albumin 4.6 (3.5-5.1) g/dL Quality VTE Prophylaxis VTE prophylaxis: pharmacologic ordered Assessment and Plan Assessment and plan (1) Sepsis: Qualifiers: Sepsis acute organ dysfunction status: without acute organ dysfunction Sepsis type: sepsis due to unspecified organism Qualified Code(s): A41.9 - Sepsis, unspecified organism Code(s): A41.9 - Sepsis, unspecified organism Status: Acute Assessment and Plan: Patient met sepsis criteria due to HR greater than 90 and RR greater than 20. No significant leukocytosis, WBC 7.0. CXR performed yesterday (02/26) during his previous evaluation in the ER which showed a small left lower lobe pneumonia. Elevation in heart rate and respiratory rate may be secondary to COPD exacerbation verses true sepsis/bacteremia. Will check blood cultures, lactic acid, and procalcitonin. Renal function mildly elevated compared to baseline, could also be dry as he is experiencing nausea. - obtain blood cultures - check lactic and procalcitonin >> 2.1, repeat 1.0 and procalcitonin 0.3 - IV fluids: 2L (30 mL/kg), monitor toleration - treat COPD exacerbation, intolerant of steroids. See below. - monitor hemodynamic stability and O2 saturation - extremities warm and dry/well perfusing upon admission on 02/27 (2) Pneumonia involving left lung: Qualifiers: Lung location: lower lobe of lung Pneumonia type: due to unspecified organism Qualified Code(s): J18.9 - Pneumonia, unspecified organism Code(s): J18.9 - Pneumonia, unspecified organism Status: Acute Assessment and Plan: Patient here with shortness of breath, dizziness, and nausea. Viral PCR negative on 02/26. CXR from 02/26 showed a left lower lobe pneumonia, small. Initially patient preferred outpatient treatment. Had been started on oral azithromycin earlier this week on 02/22, however he did not feel improved. Sought re-evaluation in the ED yesterday on 02/26 and improved with a nebulizer (his is currently broken) and felt comfortable being discharged home with additional antibiotic, doxycycline. Able to take dose last night, however unable to take any antibiotics today due to the nausea. Admitted here for further care as he feels unsafe to care for himself at home in his current state. - started on IV antibiotics: Ceftriaxone and azithromycin on 02/27 - supportive care: DuoNebs, Mucinex, Tylenol p.r.n., Tessalon Perles p.r.n. - encourage IS - sputum culture if obtainable - viral PCR negative on 02/26 - no current hypoxia, monitor O2 saturation. No baseline requirement. (3) Chronic obstructive pulmonary disease: Qualifiers: COPD type: unspecified COPD Qualified Code(s): J44.9 - Chronic obstructive pulmonary disease, unspecified Code(s): J44.9 - Chronic obstructive pulmonary disease, unspecified Status: Acute Assessment and Plan: Patient here with a small left lower lobe pneumonia, see above. Likely worsened by COPD exacerbation as he improved yesterday with a nebulizer treatment. His current nebulizer is broken and he plans to replace. However due to his current symptoms he feels unsafe to care for himself at home. Will start scheduled nebulizer treatments. Patient is intolerant of steroids due to side effects, worsened shortness of breath and dizziness. - Mucinex lindy - DuoNebs lindy - continue home medication(s) (4) Acute kidney injury: Code(s): N17.9 - Acute kidney failure, unspecified Status: Acute Assessment and Plan: Mild AGATHA noted. Previously 1.32, BUN 21, GFR 52 in January of 2025. Creatinine now 1.58, BUN 26, GFR 42. Has been experiencing nausea without vomiting. Suspect patient is dry to to acute illness and poor p.o. intake. Start with IV fluids and reassess in renal function in 24 hours. If no improvement, consider further workup and nephrology consultation. - IV fluids: 2L bolus -> 75 mL/hr x1L - trend renal function and electrolytes, correct electrolytes as needed Plan Diet: Heart healthy GI Prophylaxis: N/a DVT Prophylaxis: Lovenox SQ IV fluids: 2L -> 75 mL/hr x1L Lines/Tubes: pIV Code Status: full code Prior Studies I have reviewed the following patient records and this information was taken into consideration when formulating the assessment and plan.: previous labs, previous ER visits, previous hospitalizations and previous clinic visits Time Spent with Patient Time with patient: less than 45 minutes Hospitalist MIPS Advance Care Plan I have confirmed that the patient's Advanced Care Plan is present, code status is documented, or surrogate decision maker is listed in patient medical record.: Yes Medication Reconciliation I have utilized all available resources to obtain, update and review the patients current medications (includes all prescriptions, OTC, herbals, cannabis, and nutritional supplements).: Yes
[2025-02-28] VITALS (8 sets, daily range): BP systolic 116–148; BP diastolic 14–72; PULSE 62–96; RESP 14–20; TEMP 35.8–36.3; O2SAT 94–98
[2025-02-28] MEDS: PROCHLORPERAZINE EDISYLATE 10 MG/2 ML VIAL IV PUSH (00:27)
[2025-02-28] MEDS: IPRATROPIUM 0.5 MG/ALBUTEROL SULFATE 2.5 MG (BASE) AMPUL.NEB 3 ML INHALATION ×3 (02:49→22:35)
[2025-02-28 06:32] LABS: Hematocrit 40.1 % (42.0-52.0); Hemoglobin 13.3 g/dL (14.0-18.0); Immature Granulocyte Percent A 0.6 % (0-0.5); Lymphocytes Absolute Auto 1.30 K/mm3 (0.9-3.2); Mean Corpuscular HGB Conc 33.2 g/dl (32-36); Mean Corpuscular Hemoglobin 31.0 pg (26-34); Mean Corpuscular Volume 93.5 fl (80-100); Nucleated Red Blood Cells Absolute Auto 0.000 K/mm3 (0.0-0.012); Nucleated Red Blood Cells Perc 0.0 % (0.0-0.2); Platelet Count Result 171 k/mm3 (150-375); Red Blood Count 4.29 M/mm3 (4.6-6.20); White Blood Count 5.0 K/mm3 (4.5-10.0)
[2025-02-28 06:56] LABS: Anion Gap 4 mmol/L (4-12); Blood Urea Nitrogen 24 mg/dL (9-20); Calcium 8.0 mg/dL (8.4-10.2); Carbon Dioxide 24 mmol/L (22-30); Chloride 106 mmol/L (98-107); Estimated CRCL calculation 38 ml/min; Estimated Glomerular Filt Rate 53; Glucose 82 mg/dL (65-110); Potassium 3.9 mmol/L (3.4-5.0); Sodium 134 mmol/L (137-145)
[2025-02-28] MEDS: CHOLECALCIFEROL (VITAMIN D3) 25 MCG (1,000 UNITS) TABLET 100 MCG PO (07:44)
[2025-02-28] MEDS: FINASTERIDE 5 MG TABLET PO (07:44)
[2025-02-28] MEDS: ACIDOPHILUS/BULGARICUS CHEWABLE TABLET 1 TABLET PO (07:44)
[2025-02-28] MEDS: MAGNESIUM OXIDE 400 MG TABLET PO (07:44)
[2025-02-28] MEDS: TAMSULOSIN HCL 0.4 MG CAPSULE PO (07:44)
[2025-02-28] MEDS: FLUTICASONE PROPIONATE 0.05% NA SPR 16 GM BTL (*BKC) 1 SPRAY NASAL ×2 (07:46→21:28)
[2025-02-28] MEDS: ACETAMINOPHEN 325 MG TABLET 650 MG PO (07:51)
--- NOTE | 2025-02-28 12:01 | PCRCNOTE ---
Window of time for administration has passed. See next scheduled administration.
[2025-02-28] MEDS: FLUTICASONE/UMECLIDIN/VILANTER 100-62.5-25 MCG ELLIPTA 1 PUFF INHALATION (13:42)
--- NOTE | 2025-02-28 14:55 | PM.IMPN2 ---
Assessment and Plan Assessment and Plan (1) Sepsis: Qualifiers: Sepsis type: sepsis due to unspecified organism Sepsis acute organ dysfunction status: without acute organ dysfunction Qualified Code(s): A41.9 - Sepsis, unspecified organism Code(s): A41.9 - Sepsis, unspecified organism Status: Acute Assessment and Plan: Patient met sepsis criteria due to HR greater than 90 and RR greater than 20. No significant leukocytosis, WBC 7.0. CXR performed yesterday (02/26) during his previous evaluation in the ER which showed a small left lower lobe pneumonia. Elevation in heart rate and respiratory rate may be secondary to COPD exacerbation verses true sepsis/bacteremia. Will check blood cultures, lactic acid, and procalcitonin. Renal function mildly elevated compared to baseline, could also be dry as he is experiencing nausea. - obtain blood cultures - check lactic and procalcitonin >> 2.1, repeat 1.0 and procalcitonin 0.3 - IV fluids: 2L (30 mL/kg), monitor toleration - treat COPD exacerbation, intolerant of steroids. See below. - monitor hemodynamic stability and O2 saturation - extremities warm and dry/well perfusing upon admission on 02/27 (2) Pneumonia involving left lung: Qualifiers: Pneumonia type: due to unspecified organism Lung location: lower lobe of lung Qualified Code(s): J18.9 - Pneumonia, unspecified organism Code(s): J18.9 - Pneumonia, unspecified organism Status: Acute Assessment and Plan: Patient here with shortness of breath, dizziness, and nausea. Viral PCR negative on 02/26. CXR from 02/26 showed a left lower lobe pneumonia, small. Initially patient preferred outpatient treatment. Had been started on oral azithromycin earlier this week on 02/22, however he did not feel improved. Sought re-evaluation in the ED yesterday on 02/26 and improved with a nebulizer (his is currently broken) and felt comfortable being discharged home with additional antibiotic, doxycycline. Able to take dose last night, however unable to take any antibiotics today due to the nausea. Admitted here for further care as he feels unsafe to care for himself at home in his current state. - started on IV antibiotics: Ceftriaxone and azithromycin on 02/27 - supportive care: DuoNebs, Mucinex, Tylenol p.r.n., Tessalon Perles p.r.n. - encourage IS - sputum culture if obtainable - viral PCR negative on 02/26 - no current hypoxia, monitor O2 saturation. No baseline requirement. (3) Chronic obstructive pulmonary disease: Qualifiers: COPD type: unspecified COPD Qualified Code(s): J44.9 - Chronic obstructive pulmonary disease, unspecified Code(s): J44.9 - Chronic obstructive pulmonary disease, unspecified Status: Acute Assessment and Plan: Patient here with a small left lower lobe pneumonia, see above. Likely worsened by COPD exacerbation as he improved yesterday with a nebulizer treatment. His current nebulizer is broken and he plans to replace. However due to his current symptoms he feels unsafe to care for himself at home. Will start scheduled nebulizer treatments. Patient is intolerant of steroids due to side effects, worsened shortness of breath and dizziness. - Mucinex lindy - DuoNebs lindy - continue home medication(s) (4) Acute kidney injury: Code(s): N17.9 - Acute kidney failure, unspecified Status: Acute Assessment and Plan: Mild AGATHA noted. Previously 1.32, BUN 21, GFR 52 in January of 2025. Creatinine now 1.58, BUN 26, GFR 42. Has been experiencing nausea without vomiting. Suspect patient is dry to to acute illness and poor p.o. intake. Start with IV fluids and reassess in renal function in 24 hours. If no improvement, consider further workup and nephrology consultation. - IV fluids: 2L bolus -> 75 mL/hr x1L - trend renal function and electrolytes, correct electrolytes as needed -stop fluids as able to drink and eat ok Plan Diet: Heart healthy GI Prophylaxis: N/a DVT Prophylaxis: Lovenox SQ IV fluids: 2L -> 75 mL/hr x1L Lines/Tubes: pIV Code Status: full code Medical Record Review I have reviewed the following patient records and this information was taken into consideration when formulating the assessment and plan.: previous labs Time Spent With Patient Time with patient: Greater than 35 minutes Subjective Date/time seen: 02/28/25 14:55 Interval history: 84 y/o M with PMH of COPD, Crohn's Disease, depression/anxiety, BPH, ileostomy, and migraines presents here with shortness of breath. The patient presents on 02/27 for further evaluation of shortness of breath, dizziness, and nausea. HPI obtained through patient report chart review. He was initially evaluated yesterday [facility] on 02/26. At that time he reported shortness of breath that has been ongoing for the past week. He was initially evaluated by his PCP and placed on azithromycin on 02/22. Despite initiation of oral antibiotics he continued to have dyspnea, cough, and subjective hot sensation/chills without fever. He has a past medical history significant for COPD and he is a former smoker, however had cessation 27 years ago. He typically uses a nebulizer at home, however is not currently working and he does not tolerate oral steroids (reports SE including dyspnea and dizziness - specifically prednisone). He was given a nebulizer treatment in the ER and reported marked improvement. X-ray at that time showed pneumonia. Ambulatory pulse ox was evaluated and no hypoxia was noted. He was discharged home with an additional antibiotic, doxycycline. He reported he plan to buy a new nebulizer machine. However he is returning today as he feels he is no longer able to care for himself at home due to his symptoms which today include shortness of breath, dizziness, diarrhea, headache, and nausea without vomiting. He was additionally unable to tolerate his oral antibiotics starting this morning, able to take 1 dose last night. Currently denies chest pain and feels less foggy/confused than when he first arrived. Initial VS at presentation: 97.6? F, HR 100, R 26, 145/85, and 97% on RA. ED workup showed: No leukocytosis, no anemia, sodium 134, creatinine 1.58 and GFR 42 (previously 1.52 and GFR 44 on 02/26), glucose 144. Viral PCR negative on 02/26. CXR from 02/26 showed a small left lower lobe pneumonia. Pt is seen and examined. He is feeling weak and sob with any activitiy. On IV antibiotics. denies chest pain, nausea. Review of Systems Review of Systems: All systems reviewed & are unremarkable except as noted in HPI and below Exam Const: General: comfortable and no acute distress Other: , male, elderly, nontoxic appearance home with modest ill appearance HENMT: Face/Nose/Sinus: Normal nares present Mouth: Yes moist mucous membranes Eyes: General: appearance normal, both eyes and all related structures Sclera: sclerae normal Pupils: Equal, round and reactive pupils present EOM: EOMs intact bilaterally Resp: Effort & Inspection: normal respiratory effort Other: Faint expiratory wheeze intermittently. Course to carline bases Cardio: Rate: regular rate Rhythm: regular rhythm Other: S1-S2 present without murmur, rub, ectopy GI: Other: Abdomen soft, nondistended, nontender. Normoactive bowel sounds in all quadrants. Ileostomy present. Skin: General skin exam: normal color and no rashes or lesions noted Wounds: no wounds Neuro: Cranial nerves: Yes Equal, round and reactive pupils present Speech: normal speech Motor exam (neuro): 5/5 motor strength present throughout Sensory Exam: normal sensation Other: A&O x4 Extrem: General: normal to inspection Psych: Mental Status: mental status grossly normal Affect: normal affect Other: Good insight and judgment, very pleasant Objective Data Vital Signs Vital Signs: Vital Signs - 24 hr 02/27/25 15:00 02/27/25 17:22 02/27/25 20:00 Temperature Pulse Rate 95 Respiratory Rate 22 H Blood Pressure Pulse Oximetry Oxygen Delivery Room Air Room Air Fraction of Inspired Oxygen 02/27/25 20:28 02/27/25 20:40 02/27/25 20:40 Temperature Pulse Rate 103 H 99 Respiratory Rate 18 18 Blood Pressure Pulse Oximetry 94 Oxygen Delivery Room Air Fraction of Inspired Oxygen 21 02/27/25 21:51 02/28/25 02:49 02/28/25 02:56 Temperature 97.5 F L Pulse Rate 104 H 96 96 Respiratory Rate 18 18 18 Blood Pressure 128/55 L Pulse Oximetry 97 Oxygen Delivery Fraction of Inspired Oxygen 02/28/25 05:05 02/28/25 08:45 02/28/25 13:43 Temperature 97.3 F L Pulse Rate 77 Respiratory Rate 14 Blood Pressure 148/72 H Pulse Oximetry 98 94 Oxygen Delivery Room Air Room Air Fraction of Inspired Oxygen 02/28/25 13:43 02/28/25 13:50 02/28/25 14:00 Temperature 97.0 F L Pulse Rate 83 80 62 Respiratory Rate 18 18 20 Blood Pressure 116/14 L Pulse Oximetry 97 Oxygen Delivery Fraction of Inspired Oxygen Intake/Output Intake/Output: Intake & Output 02/25/25 02/26/25 02/27/25 02/28/25 23:59 23:59 23:59 23:59 Intake Total 1150 625 Output Total 750 Balance 1150 -125 Meds/Results Medications: Active Medications Generic Name Dose Route Start Last Admin Trade Name Freq PRN Reason Stop Dose Admin Acetaminophen 650 mg 02/27/25 14:47 02/28/25 07:51 Acetaminophen 325 Mg Tablet PO 650 mg Q4H PRN Administration Mild Pain (1-3) or Fever Hydrocodone Bitart/Acetaminophen 1 tab 02/27/25 14:47 02/27/25 20:50 Hydrocodone/Acetaminophen (*Crx) 5-325 Mg Tablet PO 1 tab Q4H PRN Administration Pain Rated 4-6 Albuterol/Ipratropium 3 ml 02/27/25 20:00 02/28/25 13:39 Ipratropium 0.5 Mg/Albuterol Sulfate 2.5 Mg (Base) Ampul.Neb 3 Ml INHALATION 3 ml Q6HRT LINDY Administration Benzonatate 100 mg 02/27/25 15:14 Benzonatate 100 Mg Capsule PO TID PRN Cough Bupropion HCl 100 mg 02/28/25 09:00 02/28/25 13:13 Bupropion Hcl 100 Mg Tablet PO 100 mg TID LINDY Administration Enoxaparin Sodium 40 mg 02/28/25 17:00 Enoxaparin 40 Mg/0.4 Ml Syringe SUB-Q DAILY LINDY Finasteride 5 mg 02/28/25 09:00 02/28/25 07:44 Finasteride 5 Mg Tablet PO 5 mg DAILY LINDY Administration Fluticasone Propionate 1 spray 02/28/25 09:00 02/28/25 07:46 Fluticasone Propionate 0.05% Na Spr 16 Gm Btl (*Bkc) NASAL 1 spray Q12HR LINDY Administration Fluticasone/Umeclidinium/Vilanterol 1 puff 02/28/25 08:00 02/28/25 13:42 Fluticasone/Umeclidin/Vilanter 100-62.5-25 Mcg Ellipta INHALATION 1 puff DAILYRT LINDY Administration Guaifenesin 200 mg 02/28/25 09:00 02/28/25 13:13 Guaifenesin 200 Mg/10 Ml Udc PO 200 mg Q4HR LINDY Administration Ceftriaxone Sodium 1 gm/ 50 mls @ 100 mls/hr 02/28/25 16:00 Sodium Chloride IVPB Q24H LINDY Azithromycin 500 mg/ Sodium 250 mls @ 250 mls/hr 02/28/25 16:00 Chloride IVPB 03/03/25 16:59 Q24H LINDY Lactobacillus Acidophilus 1 tablet 02/28/25 09:00 02/28/25 07:44 Acidophilus/Bulgaricus Chewable Tablet PO 1 tablet DAILY LINDY Administration Loperamide HCl 2 mg 02/28/25 01:03 Loperamide Hcl 2 Mg Capsule PO PRN PRN Diarrhea Lorazepam 0.5 mg 02/28/25 00:34 Lorazepam (*Crx) 0.5 Mg Tablet PO DAILY PRN Anxiety Magnesium Oxide 400 mg 02/28/25 09:00 02/28/25 07:44 Magnesium Oxide 400 Mg Tablet PO 400 mg DAILY LINDY Administration Miscellaneous Information 1 each 02/28/25 00:01 Potassium 99 Mg Tablet Is Nonform, 99 Mg = 1.33 Meq Of Potassium Chloride, We Carry 10 Meq XX 03/30/25 00:00 [facility] Non-Formulary Medication 99 mg 02/28/25 09:00 Potassium PO 03/30/25 08:59 DAILY [facility] Ondansetron HCl 4 mg 02/27/25 14:47 Ondansetron Inj 4 Mg/2 Ml Vial IV PUSH Q4H PRN Nausea Simethicone 125 mg 02/28/25 01:19 Simethicone 125 Mg Chew Tab PO QID PRN Gas Tamsulosin HCl 0.4 mg 02/28/25 09:00 02/28/25 07:44 Tamsulosin Hcl 0.4 Mg Capsule PO 0.4 mg DAILY [facility] Administration Trazodone HCl 50 mg 02/28/25 00:34 Trazodone Hcl 50 Mg Tablet PO HS PRN Sleep Vitamin D 100 mcg 02/28/25 09:00 02/28/25 07:44 Cholecalciferol (Vitamin D3) 25 Mcg (1,000 Units) Tablet PO 100 mcg DAILY LINDY Administration Labs Labs: Laboratory Results - last 24 hr 02/27/25 02/27/25 02/27/25 10:42 17:16 20:04 WBC RBC Hgb Hct MCV MCH MCHC RDW Plt Count MPV Immature Gran % (Auto) Neut % (Auto) Lymph % (Auto) [place] % (Auto) Eos % (Auto) Baso % (Auto) Lymph # (Auto) [place] # (Auto) Eos # (Auto) Baso # (Auto) Abs Immat Gran (auto) Absolute Neuts (auto) Absolute Nucleated RBC Nucleated RBC % Sodium Potassium Chloride Carbon Dioxide Anion Gap BUN Creatinine Estim Creat Clear Calc Estimated GFR Glucose Lactic Acid 2.1 H 1.0 Calcium Procalcitonin 0.3 02/28/25 05:39 WBC 5.0 RBC 4.29 L Hgb 13.3 L D Hct 40.1 L MCV 93.5 MCH 31.0 MCHC 33.2 RDW 13.6 Plt Count 171 MPV 8.9 Immature Gran % (Auto) 0.6 H Neut % (Auto) 62.7 Lymph % (Auto) 25.8 [place] % (Auto) 10.5 H Eos % (Auto) 0.4 Baso % (Auto) 0.0 L Lymph # (Auto) 1.30 [place] # (Auto) 0.5 Eos # (Auto) 0.0 Baso # (Auto) 0.0 Abs Immat Gran (auto) 0.03 Absolute Neuts (auto) 3.2 Absolute Nucleated RBC 0.000 Nucleated RBC % 0.0 Sodium 134 L Potassium 3.9 Chloride 106 Carbon Dioxide 24 Anion Gap 4 BUN 24 H Creatinine 1.29 Estim Creat Clear Calc 38 Estimated GFR 53 L Glucose 82 Lactic Acid Calcium 8.0 L Procalcitonin Quality VTE Prophylaxis VTE prophylaxis: pharmacologic ordered
[2025-02-28] MEDS: cefTRIAXone 1 GM in SODIUM CHLORIDE 0.9% IV 50 ML 100 ML IVPB (15:34)
[2025-02-28] MEDS: AZITHROMYCIN IV 500 MG in SODIUM CHLORIDE 0.9% IV 250 ML IVPB (16:00)
[2025-02-28] MEDS: ENOXAPARIN 40 MG/0.4 ML SYRINGE SUB-Q (16:50)
[2025-03-01] VITALS (10 sets, daily range): BP systolic 154–174; BP diastolic 70–89; PULSE 45–88; RESP 16–20; TEMP 36.4–36.6; O2SAT 95–97
[2025-03-01] MEDS: IPRATROPIUM 0.5 MG/ALBUTEROL SULFATE 2.5 MG (BASE) AMPUL.NEB 3 ML INHALATION ×3 (08:26→19:47)
[2025-03-01] MEDS: FLUTICASONE/UMECLIDIN/VILANTER 100-62.5-25 MCG ELLIPTA 1 PUFF INHALATION (08:26)
[2025-03-01] MEDS: FINASTERIDE 5 MG TABLET PO (08:54)
[2025-03-01] MEDS: TAMSULOSIN HCL 0.4 MG CAPSULE PO (08:54)
[2025-03-01] MEDS: ACIDOPHILUS/BULGARICUS CHEWABLE TABLET 1 TABLET PO (08:54)
[2025-03-01] MEDS: ENOXAPARIN 40 MG/0.4 ML SYRINGE SUB-Q (08:54)
[2025-03-01] MEDS: CHOLECALCIFEROL (VITAMIN D3) 25 MCG (1,000 UNITS) TABLET 100 MCG PO (08:54)
[2025-03-01] MEDS: POTASSIUM CHLORIDE 20 MEQ PACKET (FOR LIQUID) PO (08:54)
[2025-03-01] MEDS: MAGNESIUM OXIDE 400 MG TABLET PO (08:54)
[2025-03-01] MEDS: FLUTICASONE PROPIONATE 0.05% NA SPR 16 GM BTL (*BKC) 1 SPRAY NASAL ×2 (08:58→20:37)
--- NOTE | 2025-03-01 14:59 | PM.IMPN2 ---
Assessment and Plan Assessment and Plan (1) Sepsis: Qualifiers: Sepsis type: sepsis due to unspecified organism Sepsis acute organ dysfunction status: without acute organ dysfunction Qualified Code(s): A41.9 - Sepsis, unspecified organism Code(s): A41.9 - Sepsis, unspecified organism Status: Acute Assessment and Plan: Patient met sepsis criteria due to HR greater than 90 and RR greater than 20. No significant leukocytosis, WBC 7.0. CXR performed yesterday (02/26) during his previous evaluation in the ER which showed a small left lower lobe pneumonia. Elevation in heart rate and respiratory rate may be secondary to COPD exacerbation verses true sepsis/bacteremia. Will check blood cultures, lactic acid, and procalcitonin. Renal function mildly elevated compared to baseline, could also be dry as he is experiencing nausea. - obtain blood cultures - check lactic and procalcitonin >> 2.1, repeat 1.0 and procalcitonin 0.3 - IV fluids: 2L (30 mL/kg), monitor toleration - treat COPD exacerbation, intolerant of steroids. See below. - monitor hemodynamic stability and O2 saturation - extremities warm and dry/well perfusing upon admission on 02/27 03/01 wbc 5, afebrile, vs wnl (2) Pneumonia involving left lung: Qualifiers: Pneumonia type: due to unspecified organism Lung location: lower lobe of lung Qualified Code(s): J18.9 - Pneumonia, unspecified organism Code(s): J18.9 - Pneumonia, unspecified organism Status: Acute Assessment and Plan: Patient here with shortness of breath, dizziness, and nausea. Viral PCR negative on 02/26. CXR from 02/26 showed a left lower lobe pneumonia, small. Initially patient preferred outpatient treatment. Had been started on oral azithromycin earlier this week on 02/22, however he did not feel improved. Sought re-evaluation in the ED yesterday on 02/26 and improved with a nebulizer (his is currently broken) and felt comfortable being discharged home with additional antibiotic, doxycycline. Able to take dose last night, however unable to take any antibiotics today due to the nausea. Admitted here for further care as he feels unsafe to care for himself at home in his current state. - started on IV antibiotics: Ceftriaxone and azithromycin on 02/27 - supportive care: DuoNebs, Mucinex, Tylenol p.r.n., Tessalon Perles p.r.n. - encourage IS - sputum culture if obtainable - viral PCR negative on 02/26 - no current hypoxia, monitor O2 saturation. No baseline requirement. continue IV antibiotics (3) Chronic obstructive pulmonary disease: Qualifiers: COPD type: unspecified COPD Qualified Code(s): J44.9 - Chronic obstructive pulmonary disease, unspecified Code(s): J44.9 - Chronic obstructive pulmonary disease, unspecified Status: Acute Assessment and Plan: Patient here with a small left lower lobe pneumonia, see above. Likely worsened by COPD exacerbation as he improved yesterday with a nebulizer treatment. His current nebulizer is broken and he plans to replace. However due to his current symptoms he feels unsafe to care for himself at home. Will start scheduled nebulizer treatments. Patient is intolerant of steroids due to side effects, worsened shortness of breath and dizziness. - Mucinex lindy - DuoNebs lindy - continue home medication(s) (4) Acute kidney injury: Code(s): N17.9 - Acute kidney failure, unspecified Status: Acute Assessment and Plan: Mild AGATHA noted. Previously 1.32, BUN 21, GFR 52 in January of 2025. Creatinine now 1.58, BUN 26, GFR 42. Has been experiencing nausea without vomiting. Suspect patient is dry to to acute illness and poor p.o. intake. Start with IV fluids and reassess in renal function in 24 hours. If no improvement, consider further workup and nephrology consultation. - IV fluids: 2L bolus -> 75 mL/hr x1L - trend renal function and electrolytes, correct electrolytes as needed -stop fluids as able to drink and eat ok Plan Diet: Heart healthy GI Prophylaxis: N/a DVT Prophylaxis: Lovenox SQ IV fluids: 2L -> 75 mL/hr x1L Lines/Tubes: pIV Code Status: full code Medical Record Review I have reviewed the following patient records and this information was taken into consideration when formulating the assessment and plan.: previous labs Time Spent With Patient Time with patient: Greater than 35 minutes Subjective Date/time seen: 03/01/25 14:59 Interval history: 84 y/o M with PMH of COPD, Crohn's Disease, depression/anxiety, BPH, ileostomy, and migraines presents here with shortness of breath. The patient presents on 02/27 for further evaluation of shortness of breath, dizziness, and nausea. HPI obtained through patient report chart review. He was initially evaluated yesterday [facility] on 02/26. At that time he reported shortness of breath that has been ongoing for the past week. He was initially evaluated by his PCP and placed on azithromycin on 02/22. Despite initiation of oral antibiotics he continued to have dyspnea, cough, and subjective hot sensation/chills without fever. He has a past medical history significant for COPD and he is a former smoker, however had cessation 27 years ago. He typically uses a nebulizer at home, however is not currently working and he does not tolerate oral steroids (reports SE including dyspnea and dizziness - specifically prednisone). He was given a nebulizer treatment in the ER and reported marked improvement. X-ray at that time showed pneumonia. Ambulatory pulse ox was evaluated and no hypoxia was noted. He was discharged home with an additional antibiotic, doxycycline. He reported he plan to buy a new nebulizer machine. However he is returning today as he feels he is no longer able to care for himself at home due to his symptoms which today include shortness of breath, dizziness, diarrhea, headache, and nausea without vomiting. He was additionally unable to tolerate his oral antibiotics starting this morning, able to take 1 dose last night. Currently denies chest pain and feels less foggy/confused than when he first arrived. Initial VS at presentation: 97.6? F, HR 100, R 26, 145/85, and 97% on RA. ED workup showed: No leukocytosis, no anemia, sodium 134, creatinine 1.58 and GFR 42 (previously 1.52 and GFR 44 on 02/26), glucose 144. Viral PCR negative on 02/26. CXR from 02/26 showed a small left lower lobe pneumonia. Pt is seen and examined. Pt/ot ordered. Continue IV antibiotics. denies chest pain, nausea. Review of Systems Review of Systems: All systems reviewed & are unremarkable except as noted in HPI and below Exam Narrative: crackles in the left lower lung Const: General: comfortable and no acute distress Other: , male, elderly, nontoxic appearance home with modest ill appearance HENMT: Face/Nose/Sinus: Normal nares present Mouth: Yes moist mucous membranes Eyes: General: appearance normal, both eyes and all related structures Sclera: sclerae normal Pupils: Equal, round and reactive pupils present EOM: EOMs intact bilaterally Resp: Effort & Inspection: normal respiratory effort Other: Faint expiratory wheeze intermittently. Course to carline bases Cardio: Rate: regular rate Rhythm: regular rhythm Other: S1-S2 present without murmur, rub, ectopy GI: Other: Abdomen soft, nondistended, nontender. Normoactive bowel sounds in all quadrants. Ileostomy present. Skin: General skin exam: normal color and no rashes or lesions noted Wounds: no wounds Neuro: Cranial nerves: Yes Equal, round and reactive pupils present Speech: normal speech Motor exam (neuro): 5/5 motor strength present throughout Sensory Exam: normal sensation Other: A&O x4 Extrem: General: normal to inspection Psych: Mental Status: mental status grossly normal Affect: normal affect Other: Good insight and judgment, very pleasant Objective Data Vital Signs Vital Signs: Vital Signs - 24 hr 02/28/25 20:00 02/28/25 20:30 02/28/25 22:35 Temperature 96.4 F L Pulse Rate 80 76 Respiratory Rate 14 16 Blood Pressure 142/62 H Pulse Oximetry 98 96 Oxygen Delivery Room Air Room Air Fraction of Inspired Oxygen 21 02/28/25 22:35 03/01/25 05:00 03/01/25 08:00 Temperature 97.9 F Pulse Rate 76 87 Respiratory Rate 16 16 Blood Pressure 154/70 H Pulse Oximetry 96 Oxygen Delivery Room Air Fraction of Inspired Oxygen 03/01/25 08:27 03/01/25 08:27 03/01/25 08:40 Temperature Pulse Rate 78 78 84 Respiratory Rate 20 20 20 Blood Pressure Pulse Oximetry 96 Oxygen Delivery Room Air Fraction of Inspired Oxygen 03/01/25 13:52 03/01/25 14:17 03/01/25 14:17 Temperature 97.6 F Pulse Rate 45 L 83 83 Respiratory Rate 18 20 20 Blood Pressure 174/81 H Pulse Oximetry 95 97 Oxygen Delivery Room Air Fraction of Inspired Oxygen 03/01/25 14:24 Temperature Pulse Rate 78 Respiratory Rate 20 Blood Pressure Pulse Oximetry Oxygen Delivery Fraction of Inspired Oxygen Intake/Output Intake/Output: Intake & Output 02/26/25 02/27/25 02/28/25 03/01/25 23:59 23:59 23:59 23:59 Intake Total 1150 1025 650 Output Total 750 400 Balance 1150 275 250 Meds/Results Medications: Active Medications Generic Name Dose Route Start Last Admin Trade Name Freq PRN Reason Stop Dose Admin Acetaminophen 650 mg 02/27/25 14:47 02/28/25 07:51 Acetaminophen 325 Mg Tablet PO 650 mg Q4H PRN Administration Mild Pain (1-3) or Fever Hydrocodone Bitart/Acetaminophen 1 tab 02/27/25 14:47 02/27/25 20:50 Hydrocodone/Acetaminophen (*Crx) 5-325 Mg Tablet PO 1 tab Q4H PRN Administration Pain Rated 4-6 Albuterol/Ipratropium 3 ml 02/27/25 20:00 03/01/25 14:16 Ipratropium 0.5 Mg/Albuterol Sulfate 2.5 Mg (Base) Ampul.Neb 3 Ml INHALATION 3 ml Q6HRT LINDY Administration Benzonatate 100 mg 02/27/25 15:14 Benzonatate 100 Mg Capsule PO TID PRN Cough Bupropion HCl 100 mg 02/28/25 09:00 03/01/25 13:19 Bupropion Hcl 100 Mg Tablet PO 100 mg TID LINDY Administration Enoxaparin Sodium 40 mg 02/28/25 17:00 03/01/25 08:54 Enoxaparin 40 Mg/0.4 Ml Syringe SUB-Q 40 mg DAILY LINDY Administration Finasteride 5 mg 02/28/25 09:00 03/01/25 08:54 Finasteride 5 Mg Tablet PO 5 mg DAILY LINDY Administration Fluticasone Propionate 1 spray 02/28/25 09:00 03/01/25 08:58 Fluticasone Propionate 0.05% Na Spr 16 Gm Btl (*Bkc) NASAL 1 spray Q12HR LINDY Administration Fluticasone/Umeclidinium/Vilanterol 1 puff 02/28/25 08:00 03/01/25 08:26 Fluticasone/Umeclidin/Vilanter 100-62.5-25 Mcg Ellipta INHALATION 1 puff DAILYRT LINDY Administration Guaifenesin 200 mg 02/28/25 09:00 03/01/25 13:19 Guaifenesin 200 Mg/10 Ml Udc PO 200 mg Q4HR LINDY Administration Ceftriaxone Sodium 1 gm/ 50 mls @ 100 mls/hr 02/28/25 16:00 02/28/25 16:04 Sodium Chloride IVPB Infused Q24H LINDY Infusion Azithromycin 500 mg/ Sodium 250 mls @ 250 mls/hr 02/28/25 16:00 02/28/25 17:40 Chloride IVPB 03/03/25 16:59 Infused Q24H LINDY Infusion Lactobacillus Acidophilus 1 tablet 02/28/25 09:00 03/01/25 08:54 Acidophilus/Bulgaricus Chewable Tablet PO 1 tablet DAILY LINDY Administration Loperamide HCl 2 mg 02/28/25 01:03 Loperamide Hcl 2 Mg Capsule PO PRN PRN Diarrhea Lorazepam 0.5 mg 02/28/25 00:34 Lorazepam (*Crx) 0.5 Mg Tablet PO DAILY PRN Anxiety Magnesium Oxide 400 mg 02/28/25 09:00 03/01/25 08:54 Magnesium Oxide 400 Mg Tablet PO 400 mg DAILY LINDY Administration Ondansetron HCl 4 mg 02/27/25 14:47 Ondansetron Inj 4 Mg/2 Ml Vial IV PUSH Q4H PRN Nausea Potassium Chloride 20 meq 03/01/25 09:00 03/01/25 08:54 Potassium Chloride 20 Meq Packet (For Liquid) PO 20 meq DAILY LINDY Administration Simethicone 125 mg 02/28/25 01:19 Simethicone 125 Mg Chew Tab PO QID PRN Gas Tamsulosin HCl 0.4 mg 02/28/25 09:00 03/01/25 08:54 Tamsulosin Hcl 0.4 Mg Capsule PO 0.4 mg DAILY LINDY Administration Trazodone HCl 50 mg 02/28/25 00:34 Trazodone Hcl 50 Mg Tablet PO HS PRN Sleep Vitamin D 100 mcg 02/28/25 09:00 03/01/25 08:54 Cholecalciferol (Vitamin D3) 25 Mcg (1,000 Units) Tablet PO 100 mcg DAILY LINDY Administration Quality VTE Prophylaxis VTE prophylaxis: pharmacologic ordered
[2025-03-01] MEDS: AZITHROMYCIN IV 500 MG in SODIUM CHLORIDE 0.9% IV 250 ML IVPB (16:10)
[2025-03-01] MEDS: cefTRIAXone 1 GM in SODIUM CHLORIDE 0.9% IV 50 ML 100 ML IVPB (18:17)
[2025-03-02] VITALS (8 sets, daily range): BP systolic 142–176; BP diastolic 70–99; PULSE 77–111; RESP 16–20; TEMP 36.2–36.6; O2SAT 93–97
[2025-03-02] MEDS: CHOLECALCIFEROL (VITAMIN D3) 25 MCG (1,000 UNITS) TABLET 100 MCG PO (08:29)
[2025-03-02] MEDS: FINASTERIDE 5 MG TABLET PO (08:29)
[2025-03-02] MEDS: MAGNESIUM OXIDE 400 MG TABLET PO (08:29)
[2025-03-02] MEDS: TAMSULOSIN HCL 0.4 MG CAPSULE PO (08:29)
[2025-03-02] MEDS: ACIDOPHILUS/BULGARICUS CHEWABLE TABLET 1 TABLET PO (08:29)
[2025-03-02] MEDS: POTASSIUM CHLORIDE 20 MEQ PACKET (FOR LIQUID) PO (08:29)
[2025-03-02] MEDS: FLUTICASONE PROPIONATE 0.05% NA SPR 16 GM BTL (*BKC) 1 SPRAY NASAL ×2 (08:29→20:15)
[2025-03-02] MEDS: ENOXAPARIN 40 MG/0.4 ML SYRINGE SUB-Q (08:30)
[2025-03-02] MEDS: IPRATROPIUM 0.5 MG/ALBUTEROL SULFATE 2.5 MG (BASE) AMPUL.NEB 3 ML INHALATION ×3 (08:40→21:28)
[2025-03-02] MEDS: FLUTICASONE/UMECLIDIN/VILANTER 100-62.5-25 MCG ELLIPTA 1 PUFF INHALATION (08:40)
--- NOTE | 2025-03-02 11:51 | P.PNIM_ITS ---
Assessment and Plan Assessment and Plan (1) Sepsis: Qualifiers: Sepsis type: sepsis due to unspecified organism Sepsis acute organ dysfunction status: without acute organ dysfunction Qualified Code(s): A41.9 - Sepsis, unspecified organism Code(s): A41.9 - Sepsis, unspecified organism Status: Acute Assessment and Plan: Patient met sepsis criteria due to HR greater than 90 and RR greater than 20. No significant leukocytosis, WBC 7.0. CXR performed yesterday (02/26) during his previous evaluation in the ER which showed a small left lower lobe pneumonia. Elevation in heart rate and respiratory rate may be secondary to COPD exacerbation verses true sepsis/bacteremia. Will check blood cultures, lactic acid, and procalcitonin. Renal function mildly elevated compared to baseline, could also be dry as he is experiencing nausea. - obtain blood cultures - check lactic and procalcitonin >> 2.1, repeat 1.0 and procalcitonin 0.3 - IV fluids: 2L (30 mL/kg), monitor toleration - treat COPD exacerbation, intolerant of steroids. See below. - monitor hemodynamic stability and O2 saturation - extremities warm and dry/well perfusing upon admission on 02/27 03/01 wbc 5, afebrile, vs wnl (2) Pneumonia involving left lung: Qualifiers: Pneumonia type: due to unspecified organism Lung location: lower lobe of lung Qualified Code(s): J18.9 - Pneumonia, unspecified organism Code(s): J18.9 - Pneumonia, unspecified organism Status: Acute Assessment and Plan: Patient here with shortness of breath, dizziness, and nausea. Viral PCR negative on 02/26. CXR from 02/26 showed a left lower lobe pneumonia, small. Initially patient preferred outpatient treatment. Had been started on oral azithromycin earlier this week on 02/22, however he did not feel improved. Sought re-evaluation in the ED yesterday on 02/26 and improved with a nebulizer (his is currently broken) and felt comfortable being discharged home with additional antibiotic, doxycycline. Able to take dose last night, however unable to take any antibiotics today due to the nausea. Admitted here for further care as he feels unsafe to care for himself at home in his current state. - started on IV antibiotics: Ceftriaxone and azithromycin on 02/27 - supportive care: DuoNebs, Mucinex, Tylenol p.r.n., Tessalon Perles p.r.n. - encourage IS - sputum culture if obtainable - viral PCR negative on 02/26 - no current hypoxia, monitor O2 saturation. No baseline requirement. continue IV antibiotics will down grade to PO tomorrow in anticipation of discharge (3) Chronic obstructive pulmonary disease: Qualifiers: COPD type: unspecified COPD Qualified Code(s): J44.9 - Chronic obstructive pulmonary disease, unspecified Code(s): J44.9 - Chronic obstructive pulmonary disease, unspecified Status: Acute Assessment and Plan: Patient here with a small left lower lobe pneumonia, see above. Likely worsened by COPD exacerbation as he improved yesterday with a nebulizer treatment. His current nebulizer is broken and he plans to replace. However due to his current symptoms he feels unsafe to care for himself at home. Will start scheduled nebulizer treatments. Patient is intolerant of steroids due to side effects, worsened shortness of breath and dizziness. - Mucinex lindy - DuoNebs lindy - continue home medication(s) (4) Acute kidney injury: Code(s): N17.9 - Acute kidney failure, unspecified Status: Acute Assessment and Plan: Mild AGATHA noted. Previously 1.32, BUN 21, GFR 52 in January of 2025. Creatinine now 1.58, BUN 26, GFR 42. Has been experiencing nausea without vomiting. Suspect patient is dry to to acute illness and poor p.o. intake. Start with IV fluids and reassess in renal function in 24 hours. If no impro vement, consider further workup and nephrology consultation. - IV fluids: 2L bolus -> 75 mL/hr x1L - trend renal function and electrolytes, correct electrolytes as needed -stop fluids as able to drink and eat ok Plan Diet: Heart healthy GI Prophylaxis: N/a DVT Prophylaxis: Lovenox SQ IV fluids: 2L -> 75 mL/hr x1L Lines/Tubes: pIV Code Status: full code Medical Record Review I have reviewed the following patient records and this information was taken into consideration when formulating the assessment and plan.: previous labs Time Spent With Patient Time with patient: 25 - 35 minutes Subjective Date/time seen: 03/02/25 11:51 Interval history: 84 y/o M with PMH of COPD, Crohn's Disease, depression/anxiety, BPH, ileostomy, and migraines presents here with shortness of breath. The patient presents on 02/27 for further evaluation of shortness of breath, dizziness, and nausea. HPI obtained through patient report chart review. He was initially evaluated yesterday [facility] on 02/26. At that time he reported shortness of breath that has been ongoing for the past week. He was initially evaluated by his PCP and placed on azithromycin on 02/22. Despite initiation of oral antibiotics he continued to have dyspnea, cough, and subjective hot sensation/chills without fever. He has a past medical history significant for COPD and he is a former smoker, however had cessation 27 years ago. He typically uses a nebulizer at home, however is not currently working and he does not tolerate oral steroids (reports SE including dyspnea and dizziness - specifically prednisone). He was given a nebulizer treatment in the ER and reported marked improvement. X-ray at that time showed pneumonia. A mbulatory pulse ox was evaluated and no hypoxia was noted. He was discharged home with an additional antibiotic, doxycycline. He reported he plan to buy a new nebulizer machine. However he is returning today as he feels he is no longer able to care for himself at home due to his symptoms which today include shortness of breath, dizziness, diarrhea, headache, and nausea without vomiting. He was additionally unable to tolerate his oral antibiotics starting this morning, able to take 1 dose last night. Currently denies chest pain and feels less foggy/confused than when he first arrived. Initial VS at presentation: 97.6? F, HR 100, R 26, 145/85, and 97% on RA. ED workup showed: No leukocytosis, no anemia, sodium 134, creatinine 1.58 and GFR 42 (previously 1.52 and GFR 44 on 02/26), glucose 144. Viral PCR negative on 02/26. CXR from 02/26 showed a small left lower lobe pneumonia. Pt is seen and examined. Pt/ot ordered. Continue IV antibiotics. denies chest pain, nausea. He is doing well. Encouraged to ambulate. Continue IV antibiotics. Review of Systems Review of Systems: All systems reviewed & are unremarkable except as noted in HPI and below Exam Narrative: crackles in the left lower lung Const: General: comfortable and no acute distress Other: , male, elderly, nontoxic appearance home with modest ill appearance HENMT: Face/Nose/Sinus: Normal nares present Mouth: Yes moist mucous membranes Eyes: General: appearance normal, both eyes and all related structures Sclera: sclerae normal Pupils: Equal, round and reactive pupils present EOM: EOMs intact bilaterally Resp: Effort & Inspection: normal respiratory effort Other: Faint expiratory wheeze intermittently. Course to carline bases Cardio: Rate: regular rate Rhythm: regular rhythm Other: S1-S2 present without murmur, rub, ectopy GI: Other: Abdomen soft, nondistended, nontender. Normoactive bowel sounds in all quadrants. Ileostomy present. Skin: General skin exam: normal color and no rashes or lesions noted Wounds: no wounds Neuro: Cranial nerves: Yes Equal, round and reactive pupils present Speech: normal speech Motor exam (neuro): 5/5 motor strength present throughout Sensory Exam: normal sensation Other: A&O x4 Extrem: General: normal to inspection Psych: Mental Status: mental status grossly normal Affect: normal affect Other: Good insight and judgment, very pleasant Objective Data Vital Signs Vital Signs: Vital Signs - 24 hr 03/01/25 13:52 03/01/25 14:17 03/01/25 14:17 Temperature 97.6 F Pulse Rate 45 L 83 83 Respiratory Rate 18 20 20 Blood Pressure 174/81 H Pulse Oximetry 95 97 Oxygen Delivery Room Air Fraction of Inspired Oxygen 03/01/25 14:24 03/01/25 19:47 03/01/25 19:49 Temperature Pulse Rate 78 81 81 Respiratory Rate 20 20 20 Blood Pressure Pulse Oximetry 97 Oxygen Delivery Room Air Fraction of Inspired Oxygen 21 03/01/25 19:56 03/01/25 20:00 03/01/25 20:40 Temperature 97.6 F Pulse Rate 82 88 Respiratory Rate 20 18 Blood Pressure 160/89 H Pulse Oximetry 96 Oxygen Delivery Room Air Fraction of Inspired Oxygen 03/02/25 05:15 03/02/25 08:00 03/02/25 08:40 Temperature 97.8 F Pulse Rate 86 111 H Respiratory Rate 16 18 Blood Pressure 176/94 H Pulse Oximetry 93 96 Oxygen Delivery Room Air Room Air Fraction of Inspired Oxygen 21 03/02/25 08:40 Temperature Pulse Rate 111 H Respiratory Rate 18 Blood Pressure Pulse Oximetry Oxygen Delivery Fraction of Inspired Oxygen Intake/Output Intake/Output: Intake & Output 02/27/25 02/28/25 03/01/25 03/02/25 23:59 23:59 23:59 23:59 Intake Total 1150 1025 900 440 Output Total 750 1300 450 Balance 1150 275 -400 -10 Meds/Results Medications: Active Medications Generic Name Dose Route Start Last Admin Trade Name Freq PRN Reason Stop Dose Admin Acetaminophen 650 mg 02/27/25 14:47 02/28/25 07:51 Acetaminophen 325 Mg Tablet PO 650 mg Q4H PRN Administration Mild Pain (1-3) or Fever Hydrocodone Bitart/Acetaminophen 1 tab 02/27/25 14:47 02/27/25 20:50 Hydrocodone/Acetaminophen (*Crx) 5-325 Mg Tablet PO 1 tab Q4H PRN Administration Pain Rated 4-6 Albuterol/Ipratropium 3 ml 03/01/25 20:00 03/02/25 08:40 Ipratropium 0.5 Mg/Albuterol Sulfate 2.5 Mg (Base) Ampul.Neb 3 Ml INHALATION 3 ml [id number] LINDY Administration Benzonatate 100 mg 02/27/25 15:14 Benzonatate 100 Mg Capsule PO TID PRN Cough Bupropion HCl 100 mg 02/28/25 09:00 03/02/25 08:29 Bupropion Hcl 100 Mg Tablet PO 100 mg TID LINDY Administration Enoxaparin Sodium 40 mg 02/28/25 17:00 03/02/25 08:30 Enoxaparin 40 Mg/0.4 Ml Syringe SUB-Q 40 mg DAILY LINDY Administration Finasteride 5 mg 02/28/25 09:00 03/02/25 08:29 Finasteride 5 Mg Tablet PO 5 mg DAILY LINDY Administration Fluticasone Propionate 1 spray 02/28/25 09:00 03/02/25 08:29 Fluticasone Propionate 0.05% Na Spr 16 Gm Btl (*Bkc) NASAL 1 spray Q12HR LINDY Administration Fluticasone/Umeclidinium/Vilanterol 1 puff 02/28/25 08:00 03/02/25 08:40 Fluticasone/Umeclidin/Vilanter 100-62.5-25 Mcg Ellipta INHALATION 1 puff DAILYRT LINDY Administration Guaifenesin 200 mg 02/28/25 09:00 03/02/25 08:30 Guaifenesin 200 Mg/10 Ml Udc PO 200 mg Q4HR LINDY Administration Ceftriaxone Sodium 1 gm/ 50 mls @ 100 mls/hr 02/28/25 16:00 03/01/25 18:17 Sodium Chloride IVPB 100 mls/hr Q24H LINDY Administration Azithromycin 500 mg/ Sodium 250 mls @ 250 mls/hr 02/28/25 16:00 03/01/25 16:10 Chloride IVPB 03/03/25 16:59 250 mls/hr Q24H LINDY Administration Lactobacillus Acidophilus 1 tablet 02/28/25 09:00 03/02/25 08:29 Acidophilus/Bulgaricus Chewable Tablet PO 1 tablet DAILY LINDY Administration Loperamide HCl 2 mg 02/28/25 01:03 Loperamide Hcl 2 Mg Capsule PO PRN PRN Diarrhea Lorazepam 0.5 mg 02/28/25 00:34 Lorazepam (*Crx) 0.5 Mg Tablet PO DAILY PRN Anxiety Magnesium Oxide 400 mg 02/28/25 09:00 03/02/25 08:29 Magnesium Oxide 400 Mg Tablet PO 400 mg DAILY LINDY Administration Ondansetron HCl 4 mg 02/27/25 14:47 Ondansetron Inj 4 Mg/2 Ml Vial IV PUSH Q4H PRN Nausea Potassium Chloride 20 meq 03/01/25 09:00 03/02/25 08:29 Potassium Chloride 20 Meq Packet (For Liquid) PO 20 meq DAILY LINDY Administration Simethicone 125 mg 02/28/25 01:19 Simethicone 125 Mg Chew Tab PO QID PRN Gas Tamsulosin HCl 0.4 mg 02/28/25 09:00 03/02/25 08:29 Tamsulosin Hcl 0.4 Mg Capsule PO 0.4 mg DAILY LINDY Administration Trazodone HCl 50 mg 02/28/25 00:34 Trazodone Hcl 50 Mg Tablet PO HS PRN Sleep Vitamin D 100 mcg 02/28/25 09:00 03/02/25 08:29 Cholecalciferol (Vitamin D3) 25 Mcg (1,000 Units) Tablet PO 100 mcg DAILY LINDY Administration Quality VTE Prophylaxis VTE prophylaxis: pharmacologic ordered
[2025-03-02] MEDS: cefTRIAXone 1 GM in SODIUM CHLORIDE 0.9% IV 50 ML 100 ML IVPB (16:35)
[2025-03-02] MEDS: AZITHROMYCIN IV 500 MG in SODIUM CHLORIDE 0.9% IV 250 ML IVPB (16:35)
[2025-03-03] VITALS (9 sets, daily range): BP systolic 132–145; BP diastolic 74–77; PULSE 82–96; RESP 16–20; TEMP 36.1–36.5; O2SAT 94–99
[2025-03-03 06:04] LABS: Hematocrit 42.8 % (42.0-52.0); Hemoglobin 14.3 g/dL (14.0-18.0); Mean Corpuscular HGB Conc 33.4 g/dl (32-36); Mean Corpuscular Hemoglobin 31.2 pg (26-34); Mean Corpuscular Volume 93.2 fl (80-100); Platelet Count Result 294 k/mm3 (150-375); Red Blood Count 4.59 M/mm3 (4.6-6.20); White Blood Count 5.6 K/mm3 (4.5-10.0)
[2025-03-03 06:24] LABS: Anion Gap 7 mmol/L (4-12); Blood Urea Nitrogen 28 mg/dL (9-20); Calcium 9.2 mg/dL (8.4-10.2); Carbon Dioxide 21 mmol/L (22-30); Chloride 109 mmol/L (98-107); Estimated CRCL calculation 38 ml/min; Estimated Glomerular Filt Rate 54; Glucose 96 mg/dL (65-110); Potassium 4.2 mmol/L (3.4-5.0); Sodium 137 mmol/L (137-145)
[2025-03-03] MEDS: IPRATROPIUM 0.5 MG/ALBUTEROL SULFATE 2.5 MG (BASE) AMPUL.NEB 3 ML INHALATION ×3 (08:23→19:31)
[2025-03-03] MEDS: FLUTICASONE/UMECLIDIN/VILANTER 100-62.5-25 MCG ELLIPTA 1 PUFF INHALATION (08:23)
[2025-03-03] MEDS: MAGNESIUM OXIDE 400 MG TABLET PO (08:54)
[2025-03-03] MEDS: CHOLECALCIFEROL (VITAMIN D3) 25 MCG (1,000 UNITS) TABLET 100 MCG PO (08:54)
[2025-03-03] MEDS: TAMSULOSIN HCL 0.4 MG CAPSULE PO (08:54)
[2025-03-03] MEDS: FINASTERIDE 5 MG TABLET PO (08:54)
[2025-03-03] MEDS: ACETAMINOPHEN 325 MG TABLET 650 MG PO (08:54)
[2025-03-03] MEDS: POTASSIUM CHLORIDE 20 MEQ PACKET (FOR LIQUID) PO (08:54)
[2025-03-03] MEDS: ACIDOPHILUS/BULGARICUS CHEWABLE TABLET 1 TABLET PO (08:55)
[2025-03-03] MEDS: ENOXAPARIN 40 MG/0.4 ML SYRINGE SUB-Q (08:55)
[2025-03-03] MEDS: FLUTICASONE PROPIONATE 0.05% NA SPR 16 GM BTL (*BKC) 1 SPRAY NASAL ×2 (08:56→20:11)
--- NOTE | 2025-03-03 10:59 | P.PNIM_ITS ---
Assessment and Plan Assessment and Plan (1) Sepsis: Qualifiers: Sepsis acute organ dysfunction status: without acute organ dysfunction Sepsis type: sepsis due to unspecified organism Qualified Code(s): A41.9 - Sepsis, unspecified organism Code(s): A41.9 - Sepsis, unspecified organism Status: Acute Assessment and Plan: Patient met sepsis criteria due to HR greater than 90 and RR greater than 20. No significant leukocytosis, WBC 7.0. Elevation in heart rate and respiratory rate may be secondary to COPD exacerbation verses true sepsis/bacteremia. - check lactic and procalcitonin >> 2.1, repeat 1.0 and procalcitonin 0.3 - IV fluids: 2L (30 mL/kg), monitor toleration - CXR (02/26) during his previous evaluation in the ER which showed a small left lower lobe pneumonia. - treat COPD exacerbation, intolerant of steroids. See below. - blood cultures obtained 02/27: NGTD 48 hrs - monitor hemodynamic stability and O2 saturation - extremities warm and dry/well perfusing upon admission on 02/27 Resolved. Vitals stable. WBC WNL. (2) Pneumonia involving left lung: Qualifiers: Lung location: lower lobe of lung Pneumonia type: due to unspecified organism Qualified Code(s): J18.9 - Pneumonia, unspecified organism Code(s): J18.9 - Pneumonia, unspecified organism Status: Acute Assessment and Plan: Patient here with shortness of breath, dizziness, and nausea. Viral PCR negative on 02/26. CXR from 02/26 showed a left lower lobe pneumonia, small. Initially patient preferred outpatient treatment. Had been started on oral azithromycin earlier this week on 02/22, however he did not feel improved. Sought re-evaluation in the ED on 02/26 and improved with a nebulizer (his is currently broken) and felt comfortable being discharged home with additional antibiotic, doxycycline. Able to take dose last night, however unable to take any antibiotics today due to the nausea. Admitted here for further care as he feels unsafe to care for himself at home in his current state. - started on IV antibiotics: Ceftriaxone and azithromycin on 02/27 - supportive care: DuoNebs, Mucinex, Tylenol p.r.n., Tessalon Perles p.r.n. - encourage IS - sputum culture if obtainable - viral PCR negative on 02/26 - no current hypoxia, monitor O2 saturation. No baseline requirement. continue IV antibiotics per care coordination patient has been unable to obtain new nebulizer from the pharmacy, possibly able to get one from [place] pharmacy? (3) Chronic obstructive pulmonary disease: Qualifiers: COPD type: unspecified COPD Qualified Code(s): J44.9 - Chronic obstructive pulmonary disease, unspecified Code(s): J44.9 - Chronic obstructive pulmonary disease, unspecified Status: Acute Assessment and Plan: Patient here with a small left lower lobe pneumonia, see above. Likely worsened by COPD exacerbation as he improved yesterday with a nebulizer treatment. His current nebulizer is broken and he plans to replace. However due to his current symptoms he feels unsafe to care for himself at home. Will start scheduled nebulizer treatments. Patient is intolerant of steroids due to side effects, worsened shortness of breath and dizziness. - Mucinex lindy - DuoNebs lindy - continue home medication(s) (4) Acute kidney injury: Code(s): N17.9 - Acute kidney failure, unspecified Status: Acute Assessment and Plan: Mild AGATHA noted. Previously 1.32, BUN 21, GFR 52 in January of 2025. Creatinine now 1.58, BUN 26, GFR 42. Has been experiencing nausea without vomiting. Suspect patient is dry to to acute illness and poor p.o. intake. - renal function improved with fluids - trend renal function and electrolytes, correct electrolytes as needed Medical Record Review I have reviewed the following patient records and this information was taken into consideration when formulating the assessment and plan.: previous labs Time Spent With Patient Time with patient: 25 - 35 minutes Subjective Date/time seen: 03/03/25 10:59 Interval history: 84 y/o M with PMH of COPD, Crohn's Disease, depression/anxiety, BPH, ileostomy, and migraines presents here with shortness of breath. Patient is pleasant sitting up comfortably in his chair. He states that he is feeling better and that his shortness of breath has improved since admission. He notes that he was previously unable to obtain his nebulizer as the pharmacy did not have one and is concerned about going home. Discussed with care coordination possible that patient may have to buy a nebulizer possibly from [facility] pharmacy. Patient has no other complaints denying chest pain, palpitations, nausea/vomiting, and abdominal pain. Review of Systems Review of Systems: All systems reviewed & are unremarkable except as noted in HPI and below Exam Narrative: AF HR 89 RR 18 SPO2 99 BP 132/76 General: male in no acute respiratory distress who is nontoxic appearing, sitting up in chair HEENT: Normocephalic. Atraumatic. Extraocular movement intact. Sclera clear and anicteric. No facial asymmetry. Chest: Lungs are diminished to auscultation bilaterally to the bases CV: Heart was regular rate and rhythm. Abd: Abdomen was soft. Nontender. Nondistended. Positive bowel sounds. Ext: No clubbing, cyanosis, or edema. DP pulses bilaterally. Neuro: Patient is alert. Speech is clear. Objective Data Vital Signs Vital Signs: Vital Signs - 24 hr 03/02/25 14:00 03/02/25 14:09 03/02/25 14:25 Temperature 97.7 F Pulse Rate 103 H 108 H 105 H Respiratory Rate 18 16 18 Blood Pressure 153/99 H Pulse Oximetry 97 Oxygen Delivery 03/02/25 20:00 03/02/25 20:57 03/02/25 21:30 Temperature 97.1 F L Pulse Rate 80 77 Respiratory Rate 20 18 Blood Pressure 142/70 H Pulse Oximetry 96 Oxygen Delivery Room Air 03/02/25 21:30 03/02/25 21:37 03/03/25 06:00 Temperature 97.4 F L Pulse Rate 80 95 Respiratory Rate 18 20 Blood Pressure 145/74 H Pulse Oximetry 93 95 Oxygen Delivery Room Air 03/03/25 08:00 03/03/25 08:24 03/03/25 08:24 Temperature Pulse Rate 86 Respiratory Rate 18 Blood Pressure Pulse Oximetry 95 Oxygen Delivery Room Air Room Air 03/03/25 08:31 Temperature Pulse Rate 84 Respiratory Rate 18 Blood Pressure Pulse Oximetry Oxygen Delivery Intake/Output Intake/Output: Intake & Output 02/28/25 03/01/25 03/02/25 03/03/25 23:59 23:59 23:59 23:59 Intake Total 1025 1200 920 610 Output Total 750 1300 3175 Balance 275 100 -7995 610 Meds/Results Medications: Active Medications Generic Name Dose Route Start Last Admin Trade Name Freq PRN Reason Stop Dose Admin Acetaminophen 650 mg 02/27/25 14:47 03/03/25 08:54 Acetaminophen 325 Mg Tablet PO 650 mg Q4H PRN Administration Mild Pain (1-3) or Fever Hydrocodone Bitart/Acetaminophen 1 tab 02/27/25 14:47 02/27/25 20:50 Hydrocodone/Acetaminophen (*Crx) 5-325 Mg Tablet PO 1 tab Q4H PRN Administration Pain Rated 4-6 Albuterol/Ipratropium 3 ml 03/01/25 20:00 03/03/25 08:23 Ipratropium 0.5 Mg/Albuterol Sulfate 2.5 Mg (Base) Ampul.Neb 3 Ml INHALATION 3 ml [id number] LINDY Administration Benzonatate 100 mg 02/27/25 15:14 Benzonatate 100 Mg Capsule PO TID PRN Cough Bupropion HCl 100 mg 02/28/25 09:00 03/03/25 08:54 Bupropion Hcl 100 Mg Tablet PO 100 mg TID LINDY Administration Enoxaparin Sodium 40 mg 02/28/25 17:00 03/03/25 08:55 Enoxaparin 40 Mg/0.4 Ml Syringe SUB-Q 40 mg DAILY LINDY Administration Finasteride 5 mg 02/28/25 09:00 03/03/25 08:54 Finasteride 5 Mg Tablet PO 5 mg DAILY LINDY Administration Fluticasone Propionate 1 spray 02/28/25 09:00 03/03/25 08:56 Fluticasone Propionate 0.05% Na Spr 16 Gm Btl (*Bkc) NASAL 1 spray Q12HR LINDY Administration Fluticasone/Umeclidinium/Vilanterol 1 puff 02/28/25 08:00 03/03/25 08:23 Fluticasone/Umeclidin/Vilanter 100-62.5-25 Mcg Ellipta INHALATION 1 puff DAILYRT LINDY Administration Guaifenesin 200 mg 02/28/25 09:00 03/03/25 08:54 Guaifenesin 200 Mg/10 Ml Udc PO 200 mg Q4HR LINDY Administration Ceftriaxone Sodium 1 gm/ 50 mls @ 100 mls/hr 02/28/25 16:00 03/02/25 16:35 Sodium Chloride IVPB 100 mls/hr Q24H LINDY Administration Azithromycin 500 mg/ Sodium 250 mls @ 250 mls/hr 02/28/25 16:00 03/02/25 16:35 Chloride IVPB 03/03/25 16:59 250 mls/hr Q24H LINDY Administration Lactobacillus Acidophilus 1 tablet 02/28/25 09:00 03/03/25 08:55 Acidophilus/Bulgaricus Chewable Tablet PO 1 tablet DAILY LINDY Administration Loperamide HCl 2 mg 02/28/25 01:03 Loperamide Hcl 2 Mg Capsule PO PRN PRN Diarrhea Lorazepam 0.5 mg 02/28/25 00:34 Lorazepam (*Crx) 0.5 Mg Tablet PO DAILY PRN Anxiety Magnesium Oxide 400 mg 02/28/25 09:00 03/03/25 08:54 Magnesium Oxide 400 Mg Tablet PO 400 mg DAILY LINDY Administration Ondansetron HCl 4 mg 02/27/25 14:47 Ondansetron Inj 4 Mg/2 Ml Vial IV PUSH Q4H PRN Nausea Potassium Chloride 20 meq 03/01/25 09:00 03/03/25 08:54 Potassium Chloride 20 Meq Packet (For Liquid) PO 20 meq DAILY LINDY Administration Simethicone 125 mg 02/28/25 01:19 Simethicone 125 Mg Chew Tab PO QID PRN Gas Tamsulosin HCl 0.4 mg 02/28/25 09:00 03/03/25 08:54 Tamsulosin Hcl 0.4 Mg Capsule PO 0.4 mg DAILY LINDY Administration Trazodone HCl 50 mg 02/28/25 00:34 03/02/25 22:12 Trazodone Hcl 50 Mg Tablet PO 50 mg HS PRN Administration Sleep Vitamin D 100 mcg 02/28/25 09:00 03/03/25 08:54 Cholecalciferol (Vitamin D3) 25 Mcg (1,000 Units) Tablet PO 100 mcg DAILY LINDY Administration Labs Labs: Laboratory Results - last 24 hr 03/03/25 05:46 WBC 5.6 RBC 4.59 L Hgb 14.3 Hct 42.8 MCV 93.2 MCH 31.2 MCHC 33.4 RDW 13.3 Plt Count 294 D MPV 8.3 Sodium 137 Potassium 4.2 Chloride 109 H Carbon Dioxide 21 L Anion Gap 7 BUN 28 H Creatinine 1.28 Estim Creat Clear Calc 38 Estimated GFR 54 L Glucose 96 Calcium 9.2 Quality VTE Prophylaxis VTE prophylaxis: pharmacologic ordered
[2025-03-03] MEDS: cefTRIAXone 1 GM in SODIUM CHLORIDE 0.9% IV 50 ML 100 ML IVPB (17:04)
[2025-03-03] MEDS: AZITHROMYCIN IV 500 MG in SODIUM CHLORIDE 0.9% IV 250 ML IVPB (17:45)
[2025-03-04] VITALS (9 sets, daily range): BP systolic 136–152; BP diastolic 73–86; PULSE 92–101; RESP 16–19; TEMP 36.3–36.4; O2SAT 93–96
--- NOTE | 2025-03-04 07:43 | PM.IMPN2 ---
Assessment and Plan Assessment and Plan (1) Sepsis: Qualifiers: Sepsis acute organ dysfunction status: without acute organ dysfunction Sepsis type: sepsis due to unspecified organism Qualified Code(s): A41.9 - Sepsis, unspecified organism Code(s): A41.9 - Sepsis, unspecified organism Status: Acute Assessment and Plan: Patient met sepsis criteria due to HR greater than 90 and RR greater than 20. No significant leukocytosis, WBC 7.0. Elevation in heart rate and respiratory rate may be secondary to COPD exacerbation verses true sepsis/bacteremia. - check lactic and procalcitonin >> 2.1, repeat 1.0 and procalcitonin 0.3 - IV fluids: 2L (30 mL/kg), monitor toleration - CXR (02/26) during his previous evaluation in the ER which showed a small left lower lobe pneumonia. - treat COPD exacerbation, intolerant of steroids. See below. - blood cultures obtained 02/27: NGTD 48 hrs - monitor hemodynamic stability and O2 saturation - extremities warm and dry/well perfusing upon admission on 02/27 Resolved. Vitals stable. WBC WNL. (2) Pneumonia involving left lung: Qualifiers: Lung location: lower lobe of lung Pneumonia type: due to unspecified organism Qualified Code(s): J18.9 - Pneumonia, unspecified organism Code(s): J18.9 - Pneumonia, unspecified organism Status: Acute Assessment and Plan: Patient here with shortness of breath, dizziness, and nausea. Viral PCR negative on 02/26. CXR from 02/26 showed a left lower lobe pneumonia, small. Initially patient preferred outpatient treatment. Had been started on oral azithromycin earlier this week on 02/22, however he did not feel improved. Sought re-evaluation in the ED on 02/26 and improved with a nebulizer (his is currently broken) and felt comfortable being discharged home with additional antibiotic, doxycycline. Able to take dose last night, however unable to take any antibiotics today due to the nausea. Admitted here for further care as he feels unsafe to care for himself at home in his current state. - started on IV antibiotics: Ceftriaxone and azithromycin on 02/27, azithromycin completed on 03/03. - supportive care: DuoNebs, Mucinex, Tylenol p.r.n., Tessalon Perles p.r.n. - encourage IS - sputum culture if obtainable - viral PCR negative on 02/26 - no current hypoxia, monitor O2 saturation. No baseline requirement. per care coordination patient has been unable to obtain new nebulizer from the pharmacy, possibly able to get one from [place] pharmacy tomorrow when open (3) Chronic obstructive pulmonary disease: Qualifiers: COPD type: unspecified COPD Qualified Code(s): J44.9 - Chronic obstructive pulmonary disease, unspecified Code(s): J44.9 - Chronic obstructive pulmonary disease, unspecified Status: Acute Assessment and Plan: Patient here with a small left lower lobe pneumonia, see above. Likely worsened by COPD exacerbation as he improved yesterday with a nebulizer treatment. His current nebulizer is broken and he plans to replace. However due to his current symptoms he feels unsafe to care for himself at home. Will start scheduled nebulizer treatments. Patient is intolerant of steroids due to side effects, worsened shortness of breath and dizziness. - Mucinex lindy - DuoNebs lindy - continue home medication(s) (4) Acute kidney injury: Code(s): N17.9 - Acute kidney failure, unspecified Status: Acute Assessment and Plan: Mild AGATHA noted. Previously 1.32, BUN 21, GFR 52 in January of 2025. Creatinine now 1.58, BUN 26, GFR 42. Has been experiencing nausea without vomiting. Suspect patient is dry to to acute illness and poor p.o. intake. - renal function improved with fluids - trend renal function and electrolytes, correct electrolytes as needed Medical Record Review I have reviewed the following patient records and this information was taken into consideration when formulating the assessment and plan.: previous labs Time Spent With Patient Time with patient: 25 - 35 minutes Subjective Date/time seen: 03/04/25 07:43 Interval history: 84 y/o M with PMH of COPD, Crohn's Disease, depression/anxiety, BPH, ileostomy, and migraines presents here with shortness of breath. Patient is pleasant lying comfortably in bed. He continues to endorse slight shortness of breath with associated productive cough. He has no other complaints denying chest pain, palpitations, nausea/vomiting and abdominal pain. Review of Systems Review of Systems: All systems reviewed & are unremarkable except as noted in HPI and below Exam Narrative: AF HR 92 RR 16 Spo2 95 BP 136/81 General: male in no acute respiratory distress who is nontoxic appearing, sitting up in chair HEENT: Normocephalic. Atraumatic. Extraocular movement intact. Sclera clear and anicteric. No facial asymmetry. Chest: Lungs are diminished to auscultation bilaterally to the bases CV: Heart was regular rate and rhythm. Abd: Abdomen was soft. Nontender. Nondistended. Positive bowel sounds. Ext: No clubbing, cyanosis, or edema. DP pulses bilaterally. Neuro: Patient is alert. Speech is clear. Objective Data Vital Signs Vital Signs: Vital Signs - 24 hr 03/03/25 08:00 03/03/25 08:24 03/03/25 08:24 Temperature Pulse Rate 86 Respiratory Rate 18 Blood Pressure Pulse Oximetry 95 Oxygen Delivery Room Air Room Air 03/03/25 08:31 03/03/25 11:09 03/03/25 13:16 Temperature Pulse Rate 84 Respiratory Rate 18 Blood Pressure Pulse Oximetry Oxygen Delivery Room Air Room Air 03/03/25 14:00 03/03/25 15:28 03/03/25 15:38 Temperature 97.7 F Pulse Rate 89 96 84 Respiratory Rate 18 18 18 Blood Pressure 132/76 Pulse Oximetry 99 Oxygen Delivery 03/03/25 19:31 03/03/25 19:31 03/03/25 19:40 Temperature Pulse Rate 86 82 Respiratory Rate 16 16 Blood Pressure Pulse Oximetry 94 Oxygen Delivery Room Air 03/03/25 20:00 03/03/25 20:46 03/04/25 05:38 Temperature 97 F L 97.4 F L Pulse Rate 89 92 Respiratory Rate 18 16 Blood Pressure 141/77 H 136/81 Pulse Oximetry 94 95 Oxygen Delivery Room Air Intake/Output Intake/Output: Intake & Output 03/01/25 03/02/25 03/03/25 03/04/25 23:59 23:59 23:59 23:59 Intake Total 1200 1220 1330 400 Output Total 1300 3175 1150 200 Balance -100 -1955 180 200 Meds/Results Medications: Active Medications Generic Name Dose Route Start Last Admin Trade Name Freq PRN Reason Stop Dose Admin Acetaminophen 650 mg 02/27/25 14:47 03/03/25 08:54 Acetaminophen 325 Mg Tablet PO 650 mg Q4H PRN Administration Mild Pain (1-3) or Fever Hydrocodone Bitart/Acetaminophen 1 tab 02/27/25 14:47 02/27/25 20:50 Hydrocodone/Acetaminophen (*Crx) 5-325 Mg Tablet PO 1 tab Q4H PRN Administration Pain Rated 4-6 Albuterol/Ipratropium 3 ml 03/01/25 20:00 03/03/25 19:31 Ipratropium 0.5 Mg/Albuterol Sulfate 2.5 Mg (Base) Ampul.Neb 3 Ml INHALATION 3 ml [id number] LINDY Administration Benzonatate 100 mg 02/27/25 15:14 Benzonatate 100 Mg Capsule PO TID PRN Cough Bupropion HCl 100 mg 02/28/25 09:00 03/03/25 17:04 Bupropion Hcl 100 Mg Tablet PO 100 mg TID LINDY Administration Enoxaparin Sodium 40 mg 02/28/25 17:00 03/03/25 08:55 Enoxaparin 40 Mg/0.4 Ml Syringe SUB-Q 40 mg DAILY LINDY Administration Finasteride 5 mg 02/28/25 09:00 03/03/25 08:54 Finasteride 5 Mg Tablet PO 5 mg DAILY LINDY Administration Fluticasone Propionate 1 spray 02/28/25 09:00 03/03/25 20:11 Fluticasone Propionate 0.05% Na Spr 16 Gm Btl (*Bkc) NASAL 1 spray Q12HR LINDY Administration Fluticasone/Umeclidinium/Vilanterol 1 puff 02/28/25 08:00 03/03/25 08:23 Fluticasone/Umeclidin/Vilanter 100-62.5-25 Mcg Ellipta INHALATION 1 puff DAILYRT LINDY Administration Guaifenesin 200 mg 02/28/25 09:00 03/04/25 05:27 Guaifenesin 200 Mg/10 Ml Udc PO 200 mg Q4HR LINDY Administration Ceftriaxone Sodium 1 gm/ 50 mls @ 100 mls/hr 02/28/25 16:00 03/03/25 17:04 Sodium Chloride IVPB 100 mls/hr Q24H LINDY Administration Lactobacillus Acidophilus 1 tablet 02/28/25 09:00 03/03/25 08:55 Acidophilus/Bulgaricus Chewable Tablet PO 1 tablet DAILY LINDY Administration Loperamide HCl 2 mg 02/28/25 01:03 Loperamide Hcl 2 Mg Capsule PO PRN PRN Diarrhea Lorazepam 0.5 mg 02/28/25 00:34 Lorazepam (*Crx) 0.5 Mg Tablet PO DAILY PRN Anxiety Magnesium Oxide 400 mg 02/28/25 09:00 03/03/25 08:54 Magnesium Oxide 400 Mg Tablet PO 400 mg DAILY LINDY Administration Ondansetron HCl 4 mg 02/27/25 14:47 Ondansetron Inj 4 Mg/2 Ml Vial IV PUSH Q4H PRN Nausea Potassium Chloride 20 meq 03/01/25 09:00 03/03/25 08:54 Potassium Chloride 20 Meq Packet (For Liquid) PO 20 meq DAILY LINDY Administration Simethicone 125 mg 02/28/25 01:19 Simethicone 125 Mg Chew Tab PO QID PRN Gas Tamsulosin HCl 0.4 mg 02/28/25 09:00 03/03/25 08:54 Tamsulosin Hcl 0.4 Mg Capsule PO 0.4 mg DAILY LINDY Administration Trazodone HCl 50 mg 02/28/25 00:34 03/02/25 22:12 Trazodone Hcl 50 Mg Tablet PO 50 mg HS PRN Administration Sleep Vitamin D 100 mcg 02/28/25 09:00 03/03/25 08:54 Cholecalciferol (Vitamin D3) 25 Mcg (1,000 Units) Tablet PO 100 mcg DAILY LINDY Administration Labs Labs: Laboratory Results - last 24 hr 03/03/25 05:46 WBC 5.6 RBC 4.59 L Hgb 14.3 Hct 42.8 MCV 93.2 MCH 31.2 MCHC 33.4 RDW 13.3 Plt Count 294 D MPV 8.3 Sodium 137 Potassium 4.2 Chloride 109 H Carbon Dioxide 21 L Anion Gap 7 BUN 28 H Creatinine 1.28 Estim Creat Clear Calc 38 Estimated GFR 54 L Glucose 96 Calcium 9.2 Quality VTE Prophylaxis VTE prophylaxis: pharmacologic ordered
[2025-03-04] MEDS: IPRATROPIUM 0.5 MG/ALBUTEROL SULFATE 2.5 MG (BASE) AMPUL.NEB 3 ML INHALATION ×3 (09:10→21:05)
[2025-03-04] MEDS: FLUTICASONE/UMECLIDIN/VILANTER 100-62.5-25 MCG ELLIPTA 1 PUFF INHALATION (09:16)
[2025-03-04] MEDS: ENOXAPARIN 40 MG/0.4 ML SYRINGE SUB-Q (10:20)
[2025-03-04] MEDS: CHOLECALCIFEROL (VITAMIN D3) 25 MCG (1,000 UNITS) TABLET 100 MCG PO (10:20)
[2025-03-04] MEDS: ACIDOPHILUS/BULGARICUS CHEWABLE TABLET 1 TABLET PO (10:21)
[2025-03-04] MEDS: MAGNESIUM OXIDE 400 MG TABLET PO (10:21)
[2025-03-04] MEDS: FINASTERIDE 5 MG TABLET PO (10:21)
[2025-03-04] MEDS: POTASSIUM CHLORIDE 20 MEQ PACKET (FOR LIQUID) PO (10:21)
[2025-03-04] MEDS: FLUTICASONE PROPIONATE 0.05% NA SPR 16 GM BTL (*BKC) 1 SPRAY NASAL ×2 (10:21→21:24)
[2025-03-04] MEDS: TAMSULOSIN HCL 0.4 MG CAPSULE PO (10:21)
[2025-03-04] MEDS: cefTRIAXone 1 GM in SODIUM CHLORIDE 0.9% IV 50 ML 100 ML IVPB (17:33)
[2025-03-05] VITALS (8 sets, daily range): BP systolic 144–167; BP diastolic 66–91; PULSE 51–98; RESP 16–19; TEMP 36.2–36.7; O2SAT 95–96
--- NOTE | 2025-03-05 07:51 | PM.IMPN2 ---
Assessment and Plan Assessment and Plan (1) Sepsis: Qualifiers: Sepsis acute organ dysfunction status: without acute organ dysfunction Sepsis type: sepsis due to unspecified organism Qualified Code(s): A41.9 - Sepsis, unspecified organism Code(s): A41.9 - Sepsis, unspecified organism Status: Acute Assessment and Plan: Patient met sepsis criteria due to HR greater than 90 and RR greater than 20. No significant leukocytosis, WBC 7.0. Elevation in heart rate and respiratory rate may be secondary to COPD exacerbation verses true sepsis/bacteremia. - check lactic and procalcitonin >> 2.1, repeat 1.0 and procalcitonin 0.3 - IV fluids: 2L (30 mL/kg), monitor toleration - CXR (02/26) during his previous evaluation in the ER which showed a small left lower lobe pneumonia. - treat COPD exacerbation, intolerant of steroids. See below. - blood cultures obtained 02/27: NGTD 48 hrs - monitor hemodynamic stability and O2 saturation - extremities warm and dry/well perfusing upon admission on 02/27 Resolved. Vitals stable. WBC WNL. (2) Pneumonia involving left lung: Qualifiers: Lung location: lower lobe of lung Pneumonia type: due to unspecified organism Qualified Code(s): J18.9 - Pneumonia, unspecified organism Code(s): J18.9 - Pneumonia, unspecified organism Status: Acute Assessment and Plan: Patient here with shortness of breath, dizziness, and nausea. Viral PCR negative on 02/26. CXR from 02/26 showed a left lower lobe pneumonia, small. Initially patient preferred outpatient treatment. Had been started on oral azithromycin earlier this week on 02/22, however he did not feel improved. Sought re-evaluation in the ED on 02/26 and improved with a nebulizer (his is currently broken) and felt comfortable being discharged home with additional antibiotic, doxycycline. Able to take dose last night, however unable to take any antibiotics today due to the nausea. Admitted here for further care as he feels unsafe to care for himself at home in his current state. - started on IV antibiotics: Ceftriaxone and azithromycin on 02/27, azithromycin completed on 03/03. - supportive care: DuoNebs, Mucinex, Tylenol p.r.n., Tessalon Perles p.r.n. - encourage IS - sputum culture if obtainable - viral PCR negative on 02/26 - no current hypoxia, monitor O2 saturation. No baseline requirement. Patient endorsing increased shortness of breath and productive cough. Remains on abx and Mucinex as above. Will start pep therapy to further help with congestion. Per care coordination patient has been unable to obtain new nebulizer from the pharmacy, calling surrounding facilities to ensure patient able to obtain one. (3) Chronic obstructive pulmonary disease: Qualifiers: COPD type: unspecified COPD Qualified Code(s): J44.9 - Chronic obstructive pulmonary disease, unspecified Code(s): J44.9 - Chronic obstructive pulmonary disease, unspecified Status: Acute Assessment and Plan: Patient here with a small left lower lobe pneumonia, see above. Likely worsened by COPD exacerbation as he improved yesterday with a nebulizer treatment. His current nebulizer is broken and he plans to replace. However due to his current symptoms he feels unsafe to care for himself at home. Will start scheduled nebulizer treatments. Patient is intolerant of steroids due to side effects, worsened shortness of breath and dizziness. - Mucinex lindy - DuoNebs lindy - continue home medication(s) (4) Acute kidney injury: Code(s): N17.9 - Acute kidney failure, unspecified Status: Acute Assessment and Plan: Mild AGATHA noted. Previously 1.32, BUN 21, GFR 52 in January of 2025. Creatinine now 1.58, BUN 26, GFR 42. Has been experiencing nausea without vomiting. Suspect patient is dry to to acute illness and poor p.o. intake. - renal function improved with fluids and remains at baseline - trend renal function and electrolytes, correct electrolytes as needed Medical Record Review I have reviewed the following patient records and this information was taken into consideration when formulating the assessment and plan.: previous labs Time Spent With Patient Time with patient: 25 - 35 minutes Subjective Date/time seen: 03/05/25 07:51 Interval history: 84 y/o M with PMH of COPD, Crohn's Disease, depression/anxiety, BPH, ileostomy, and migraines presents here with shortness of breath. Patient is pleasant sitting up comfortably in his chair. He is stating that he is having increased shortness of breath and worsening cough today. He notes that he was working well with therapy. He has no other complaints denying chest pain, palpitations, nausea/vomiting, abdominal pain. Review of Systems Review of Systems: All systems reviewed & are unremarkable except as noted in HPI and below Exam Narrative: AF HR 94 RR 18 SPO2 95 BP 144/74 General: male in no acute respiratory distress who is nontoxic appearing, sitting up in chair HEENT: Normocephalic. Atraumatic. Extraocular movement intact. Sclera clear and anicteric. No facial asymmetry. Chest: Lungs are diminished to auscultation bilaterally to the bases with slight crackles. Productive cough. CV: Heart was regular rate and rhythm. Abd: Abdomen was soft. Nontender. Nondistended. Positive bowel sounds. Ext: No clubbing, cyanosis, or edema. DP pulses bilaterally. Neuro: Patient is alert. Speech is clear. Objective Data Vital Signs Vital Signs: Vital Signs - 24 hr 03/04/25 09:10 03/04/25 09:15 03/04/25 14:00 Temperature 97.5 F L Pulse Rate 98 93 97 Respiratory Rate 19 19 18 Blood Pressure 144/86 H Pulse Oximetry 96 Oxygen Delivery Fraction of Inspired Oxygen 03/04/25 14:19 03/04/25 14:24 03/04/25 20:00 Temperature Pulse Rate 96 94 Respiratory Rate 17 17 Blood Pressure Pulse Oximetry Oxygen Delivery Room Air Fraction of Inspired Oxygen 03/04/25 20:35 03/04/25 21:05 03/04/25 21:05 Temperature 97.3 F L Pulse Rate 99 100 100 Respiratory Rate 18 18 18 Blood Pressure 152/73 H Pulse Oximetry 95 93 Oxygen Delivery Room Air Fraction of Inspired Oxygen 21 03/04/25 21:20 03/05/25 05:04 Temperature 97.2 F L Pulse Rate 101 H 94 Respiratory Rate 18 16 Blood Pressure 144/74 H Pulse Oximetry 95 Oxygen Delivery Fraction of Inspired Oxygen Intake/Output Intake/Output: Intake & Output 03/02/25 03/03/25 03/04/25 03/05/25 23:59 23:59 23:59 23:59 Intake Total 1220 1380 1000 540 Output Total 3175 1150 200 525 Balance -1955 230 800 15 Meds/Results Medications: Active Medications Generic Name Dose Route Start Last Admin Trade Name Freq PRN Reason Stop Dose Admin Acetaminophen 650 mg 02/27/25 14:47 03/03/25 08:54 Acetaminophen 325 Mg Tablet PO 650 mg Q4H PRN Administration Mild Pain (1-3) or Fever Hydrocodone Bitart/Acetaminophen 1 tab 02/27/25 14:47 02/27/25 20:50 Hydrocodone/Acetaminophen (*Crx) 5-325 Mg Tablet PO 1 tab Q4H PRN Administration Pain Rated 4-6 Albuterol/Ipratropium 3 ml 03/01/25 20:00 03/04/25 21:05 Ipratropium 0.5 Mg/Albuterol Sulfate 2.5 Mg (Base) Ampul.Neb 3 Ml INHALATION 3 ml [id number] LINDY Administration Benzonatate 100 mg 02/27/25 15:14 Benzonatate 100 Mg Capsule PO TID PRN Cough Bupropion HCl 100 mg 03/04/25 22:00 03/05/25 05:16 Bupropion Hcl 100 Mg Tablet PO 100 mg Q8HR LINDY Administration Enoxaparin Sodium 40 mg 02/28/25 17:00 03/04/25 10:20 Enoxaparin 40 Mg/0.4 Ml Syringe SUB-Q 40 mg DAILY LINDY Administration Finasteride 5 mg 02/28/25 09:00 03/04/25 10:21 Finasteride 5 Mg Tablet PO 5 mg DAILY LINDY Administration Fluticasone Propionate 1 spray 02/28/25 09:00 03/04/25 21:24 Fluticasone Propionate 0.05% Na Spr 16 Gm Btl (*Bkc) NASAL 1 spray Q12HR LINDY Administration Fluticasone/Umeclidinium/Vilanterol 1 puff 02/28/25 08:00 03/04/25 09:16 Fluticasone/Umeclidin/Vilanter 100-62.5-25 Mcg Ellipta INHALATION 1 puff DAILYRT LINDY Administration Guaifenesin 200 mg 02/28/25 09:00 03/05/25 05:16 Guaifenesin 200 Mg/10 Ml Udc PO 200 mg Q4HR LINDY Administration Ceftriaxone Sodium 1 gm/ 50 mls @ 100 mls/hr 02/28/25 16:00 03/04/25 18:03 Sodium Chloride IVPB Infused Q24H LINDY Infusion Lactobacillus Acidophilus 1 tablet 02/28/25 09:00 03/04/25 10:21 Acidophilus/Bulgaricus Chewable Tablet PO 1 tablet DAILY LINDY Administration Loperamide HCl 2 mg 02/28/25 01:03 Loperamide Hcl 2 Mg Capsule PO PRN PRN Diarrhea Lorazepam 0.5 mg 02/28/25 00:34 Lorazepam (*Crx) 0.5 Mg Tablet PO DAILY PRN Anxiety Magnesium Oxide 400 mg 02/28/25 09:00 03/04/25 10:21 Magnesium Oxide 400 Mg Tablet PO 400 mg DAILY LINDY Administration Ondansetron HCl 4 mg 02/27/25 14:47 Ondansetron Inj 4 Mg/2 Ml Vial IV PUSH Q4H PRN Nausea Potassium Chloride 20 meq 03/01/25 09:00 03/04/25 10:21 Potassium Chloride 20 Meq Packet (For Liquid) PO 20 meq DAILY LINDY Administration Simethicone 125 mg 02/28/25 01:19 Simethicone 125 Mg Chew Tab PO QID PRN Gas Tamsulosin HCl 0.4 mg 02/28/25 09:00 03/04/25 10:21 Tamsulosin Hcl 0.4 Mg Capsule PO 0.4 mg DAILY LINDY Administration Trazodone HCl 50 mg 02/28/25 00:34 03/02/25 22:12 Trazodone Hcl 50 Mg Tablet PO 50 mg HS PRN Administration Sleep Vitamin D 100 mcg 02/28/25 09:00 03/04/25 10:20 Cholecalciferol (Vitamin D3) 25 Mcg (1,000 Units) Tablet PO 100 mcg DAILY LINDY Administration Labs Labs: Laboratory Results - last 24 hr 03/03/25 05:46 WBC 5.6 RBC 4.59 L Hgb 14.3 Hct 42.8 MCV 93.2 MCH 31.2 MCHC 33.4 RDW 13.3 Plt Count 294 D MPV 8.3 Sodium 137 Potassium 4.2 Chloride 109 H Carbon Dioxide 21 L Anion Gap 7 BUN 28 H Creatinine 1.28 Estim Creat Clear Calc 38 Estimated GFR 54 L Glucose 96 Calcium 9.2 Quality VTE Prophylaxis VTE prophylaxis: pharmacologic ordered
[2025-03-05 08:10] LABS: Hematocrit 44.1 % (42.0-52.0); Hemoglobin 14.6 g/dL (14.0-18.0); Mean Corpuscular HGB Conc 33.1 g/dl (32-36); Mean Corpuscular Hemoglobin 31.2 pg (26-34); Mean Corpuscular Volume 94.2 fl (80-100); Platelet Count Result 341 k/mm3 (150-375); Red Blood Count 4.68 M/mm3 (4.6-6.20); White Blood Count 8.8 K/mm3 (4.5-10.0)
[2025-03-05] MEDS: IPRATROPIUM 0.5 MG/ALBUTEROL SULFATE 2.5 MG (BASE) AMPUL.NEB 3 ML INHALATION ×2 (08:11→21:39)
[2025-03-05 08:27] LABS: Alanine Aminotransferase 111 U/L (6-50); Albumin Level 3.9 g/dL (3.5-5.1); Alkaline Phosphatase 141 U/L (38-126); Anion Gap 10 mmol/L (4-12); Aspartate Amino Transferase 66 U/L (17-59); Bilirubin,Total 0.7 mg/dL (0.2-1.3); Blood Urea Nitrogen 34 mg/dL (9-20); Calcium 9.4 mg/dL (8.4-10.2); Carbon Dioxide 19 mmol/L (22-30); Chloride 105 mmol/L (98-107); Estimated CRCL calculation 37 ml/min; Estimated Glomerular Filt Rate 51; Glucose 131 mg/dL (65-110); Potassium 4.6 mmol/L (3.4-5.0); Sodium 134 mmol/L (137-145); Total Protein 7.1 g/dL (6.3-8.2)
[2025-03-05] MEDS: ENOXAPARIN 40 MG/0.4 ML SYRINGE SUB-Q (08:32)
[2025-03-05] MEDS: MAGNESIUM OXIDE 400 MG TABLET PO (08:33)
[2025-03-05] MEDS: FINASTERIDE 5 MG TABLET PO (08:33)
[2025-03-05] MEDS: POTASSIUM CHLORIDE 20 MEQ PACKET (FOR LIQUID) PO (08:33)
[2025-03-05] MEDS: TAMSULOSIN HCL 0.4 MG CAPSULE PO (08:33)
[2025-03-05] MEDS: CHOLECALCIFEROL (VITAMIN D3) 25 MCG (1,000 UNITS) TABLET 100 MCG PO (08:33)
[2025-03-05] MEDS: ACIDOPHILUS/BULGARICUS CHEWABLE TABLET 1 TABLET PO (08:33)
[2025-03-05] MEDS: FLUTICASONE PROPIONATE 0.05% NA SPR 16 GM BTL (*BKC) 1 SPRAY NASAL ×2 (08:34→21:13)
[2025-03-05] MEDS: ACETAMINOPHEN 325 MG TABLET 650 MG PO ×2 (10:45→21:12)
--- NOTE | 2025-03-05 12:10 | PCRCNOTE ---
Window of time for administration has passed. See next scheduled administration.
--- NOTE | 2025-03-05 16:30 | PC.NURSE ---
This RN offered pt. a bath. He declined and stated I will wait until I get home tomorrow to shower.
[2025-03-05] MEDS: cefTRIAXone 1 GM in SODIUM CHLORIDE 0.9% IV 50 ML 100 ML IVPB (17:00)
--- NOTE | 2025-03-05 17:28 | PCRCNOTE ---
Window of time for administration has passed. See next scheduled administration.
[2025-03-06] VITALS (9 sets, daily range): BP systolic 130–139; BP diastolic 71–84; PULSE 86–108; RESP 16–18; TEMP 36.6–37.3; O2SAT 94–98
[2025-03-06] MEDS: PROCHLORPERAZINE EDISYLATE 10 MG/2 ML VIAL IV PUSH (00:10)
[2025-03-06] MEDS: IPRATROPIUM 0.5 MG/ALBUTEROL SULFATE 2.5 MG (BASE) AMPUL.NEB 3 ML INHALATION ×3 (07:32→20:46)
[2025-03-06] MEDS: FINASTERIDE 5 MG TABLET PO (09:26)
[2025-03-06] MEDS: CHOLECALCIFEROL (VITAMIN D3) 25 MCG (1,000 UNITS) TABLET 100 MCG PO (09:26)
[2025-03-06] MEDS: TAMSULOSIN HCL 0.4 MG CAPSULE PO (09:26)
[2025-03-06] MEDS: ENOXAPARIN 40 MG/0.4 ML SYRINGE SUB-Q (09:26)
[2025-03-06] MEDS: ACIDOPHILUS/BULGARICUS CHEWABLE TABLET 1 TABLET PO (09:26)
[2025-03-06] MEDS: MAGNESIUM OXIDE 400 MG TABLET PO (09:26)
[2025-03-06] MEDS: FLUTICASONE PROPIONATE 0.05% NA SPR 16 GM BTL (*BKC) 1 SPRAY NASAL (09:27)
[2025-03-06] MEDS: POTASSIUM CHLORIDE 20 MEQ PACKET (FOR LIQUID) PO (09:27)
[2025-03-06 10:37] LABS: Hematocrit 44.2 % (42.0-52.0); Hemoglobin 14.5 g/dL (14.0-18.0); Mean Corpuscular HGB Conc 32.8 g/dl (32-36); Mean Corpuscular Hemoglobin 30.7 pg (26-34); Mean Corpuscular Volume 93.6 fl (80-100); Platelet Count Result 348 k/mm3 (150-375); Red Blood Count 4.72 M/mm3 (4.6-6.20); White Blood Count 8.8 K/mm3 (4.5-10.0)
[2025-03-06 10:48] LABS: Alanine Aminotransferase 125 U/L (6-50); Albumin Level 3.8 g/dL (3.5-5.1); Alkaline Phosphatase 144 U/L (38-126); Anion Gap 6 mmol/L (4-12); Aspartate Amino Transferase 60 U/L (17-59); Bilirubin,Total 0.6 mg/dL (0.2-1.3); Blood Urea Nitrogen 32 mg/dL (9-20); Calcium 9.3 mg/dL (8.4-10.2); Carbon Dioxide 22 mmol/L (22-30); Chloride 105 mmol/L (98-107); Estimated CRCL calculation 38 ml/min; Estimated Glomerular Filt Rate 54; Glucose 150 mg/dL (65-110); Potassium 4.9 mmol/L (3.4-5.0); Sodium 133 mmol/L (137-145); Total Protein 7.1 g/dL (6.3-8.2)
[2025-03-06] MEDS: FLUTICASONE/UMECLIDIN/VILANTER 100-62.5-25 MCG ELLIPTA 1 PUFF INHALATION (13:36)
--- NOTE | 2025-03-06 15:29 | PM.IMPN2 ---
Assessment and Plan Assessment and Plan (1) Sepsis: Qualifiers: Sepsis type: sepsis due to unspecified organism Sepsis acute organ dysfunction status: without acute organ dysfunction Qualified Code(s): A41.9 - Sepsis, unspecified organism Code(s): A41.9 - Sepsis, unspecified organism Status: Acute Assessment and Plan: Patient met sepsis criteria due to HR greater than 90 and RR greater than 20. No significant leukocytosis, WBC 7.0. Elevation in heart rate and respiratory rate may be secondary to COPD exacerbation verses true sepsis/bacteremia. - check lactic and procalcitonin >> 2.1, repeat 1.0 and procalcitonin 0.3 - IV fluids: 2L (30 mL/kg), monitor toleration - CXR (02/26) during his previous evaluation in the ER which showed a small left lower lobe pneumonia. - treat COPD exacerbation, intolerant of steroids. See below. - blood cultures obtained 02/27: NGTD 48 hrs - monitor hemodynamic stability and O2 saturation - extremities warm and dry/well perfusing upon admission on 02/27 Resolved. Vitals stable. WBC WNL. (2) Pneumonia involving left lung: Qualifiers: Pneumonia type: due to unspecified organism Lung location: lower lobe of lung Qualified Code(s): J18.9 - Pneumonia, unspecified organism Code(s): J18.9 - Pneumonia, unspecified organism Status: Acute Assessment and Plan: Patient here with shortness of breath, dizziness, and nausea. Viral PCR negative on 02/26. CXR from 02/26 showed a left lower lobe pneumonia, small. Initially patient preferred outpatient treatment. Had been started on oral azithromycin earlier this week on 02/22, however he did not feel improved. Sought re-evaluation in the ED on 02/26 and improved with a nebulizer (his is currently broken) and felt comfortable being discharged home with additional antibiotic, doxycycline. Able to take dose last night, however unable to take any antibiotics today due to the nausea. Admitted here for further care as he feels unsafe to care for himself at home in his current state. - started on IV antibiotics: Ceftriaxone and azithromycin on 02/27, azithromycin completed on 03/03. - encourage IS and PEP therapy - sputum culture if obtainable - viral PCR negative on 02/26 - no current hypoxia, monitor O2 saturation. No baseline requirement. Patient endorsing shortness of breath and productive cough. Remains on abx and Mucinex as above. Will start Mucomyst with nebulizers. (3) Chronic obstructive pulmonary disease: Qualifiers: COPD type: unspecified COPD Qualified Code(s): J44.9 - Chronic obstructive pulmonary disease, unspecified Code(s): J44.9 - Chronic obstructive pulmonary disease, unspecified Status: Acute Assessment and Plan: Patient here with a small left lower lobe pneumonia, see above. Likely worsened by COPD exacerbation as he improved yesterday with a nebulizer treatment. His current nebulizer is broken and he plans to replace. However due to his current symptoms he feels unsafe to care for himself at home. Will start scheduled nebulizer treatments. Patient is intolerant of steroids due to side effects, worsened shortness of breath and dizziness. - Mucinex lindy - DuoNebs lindy - continue home medication(s) (4) Acute kidney injury: Code(s): N17.9 - Acute kidney failure, unspecified Status: Acute Assessment and Plan: Mild AGATHA noted. Previously 1.32, BUN 21, GFR 52 in January of 2025. Creatinine now 1.58, BUN 26, GFR 42. Has been experiencing nausea without vomiting. Suspect patient is dry to to acute illness and poor p.o. intake. - renal function improved with fluids and remains at baseline - trend renal function and electrolytes, correct electrolytes as needed Medical Record Review I have reviewed the following patient records and this information was taken into consideration when formulating the assessment and plan.: previous labs Time Spent With Patient Time with patient: 25 - 35 minutes Subjective Date/time seen: 03/06/25 15:29 Interval history: 84 y/o M with PMH of COPD, Crohn's Disease, depression/anxiety, BPH, ileostomy, and migraines presents here with shortness of breath. Patient is pleasant sitting up comfortably in his chair. Continues to endorse shortness of breath but notes improvement from yesterday. He has the ongoing productive cough that he states is unchanged. He has no other complaints denying chest pain, palpitations, nausea/vomiting and abdominal pain. Review of Systems Review of Systems: All systems reviewed & are unremarkable except as noted in HPI and below Exam Narrative: AF HR 108 RR 18 SPo2 96 BP 130/71 General: male in no acute respiratory distress who is nontoxic appearing, sitting up in chair HEENT: Normocephalic. Atraumatic. Extraocular movement intact. Sclera clear and anicteric. No facial asymmetry. Chest: Lungs are diminished to auscultation bilaterally to the bases with slight crackles that improve with cough. Productive cough. CV: Heart was regular rate and rhythm. Abd: Abdomen was soft. Nontender. Nondistended. Positive bowel sounds. Ext: No clubbing, cyanosis, or edema. DP pulses bilaterally. Neuro: Patient is alert. Speech is clear. Objective Data Vital Signs Vital Signs: Vital Signs - 24 hr 03/05/25 20:00 03/05/25 21:14 03/05/25 21:40 Temperature 98.1 F Pulse Rate 98 93 Respiratory Rate 16 18 Blood Pressure 167/91 H Pulse Oximetry 96 Oxygen Delivery Room Air Fraction of Inspired Oxygen 03/05/25 21:45 03/05/25 21:47 03/06/25 05:47 Temperature 98.2 F Pulse Rate 93 94 86 Respiratory Rate 18 17 Blood Pressure 139/76 Pulse Oximetry 95 94 Oxygen Delivery Room Air Fraction of Inspired Oxygen 03/06/25 07:34 03/06/25 07:39 03/06/25 09:25 Temperature Pulse Rate 95 93 Respiratory Rate 17 18 Blood Pressure Pulse Oximetry Oxygen Delivery Room Air Fraction of Inspired Oxygen 03/06/25 13:32 03/06/25 13:38 03/06/25 14:00 Temperature 99.1 F Pulse Rate 98 91 108 H Respiratory Rate 17 17 18 Blood Pressure 130/71 Pulse Oximetry 96 Oxygen Delivery Fraction of Inspired Oxygen Intake/Output Intake/Output: Intake & Output 03/03/25 03/04/25 03/05/25 03/06/25 23:59 23:59 23:59 23:59 Intake Total 1380 1000 1390 680 Output Total 1150 200 525 775 Balance 230 800 865 -95 Meds/Results Medications: Active Medications Generic Name Dose Route Start Last Admin Trade Name Freq PRN Reason Stop Dose Admin Acetaminophen 650 mg 02/27/25 14:47 03/05/25 21:12 Acetaminophen 325 Mg Tablet PO 650 mg Q4H PRN Administration Mild Pain (1-3) or Fever Hydrocodone Bitart/Acetaminophen 1 tab 02/27/25 14:47 02/27/25 20:50 Hydrocodone/Acetaminophen (*Crx) 5-325 Mg Tablet PO 1 tab Q4H PRN Administration Pain Rated 4-6 Albuterol/Ipratropium 3 ml 03/01/25 20:00 03/06/25 13:34 Ipratropium 0.5 Mg/Albuterol Sulfate 2.5 Mg (Base) Ampul.Neb 3 Ml INHALATION 3 ml [id number] LINDY Administration Benzonatate 100 mg 02/27/25 15:14 Benzonatate 100 Mg Capsule PO TID PRN Cough Bupropion HCl 100 mg 03/04/25 22:00 03/06/25 13:07 Bupropion Hcl 100 Mg Tablet PO 100 mg Q8HR LINDY Administration Enoxaparin Sodium 40 mg 02/28/25 17:00 03/06/25 09:26 Enoxaparin 40 Mg/0.4 Ml Syringe SUB-Q 40 mg DAILY LINDY Administration Finasteride 5 mg 02/28/25 09:00 03/06/25 09:26 Finasteride 5 Mg Tablet PO 5 mg DAILY LINDY Administration Fluticasone Propionate 1 spray 02/28/25 09:00 03/06/25 09:27 Fluticasone Propionate 0.05% Na Spr 16 Gm Btl (*Bkc) NASAL 1 spray Q12HR LINDY Administration Fluticasone/Umeclidinium/Vilanterol 1 puff 02/28/25 08:00 03/06/25 13:36 Fluticasone/Umeclidin/Vilanter 100-62.5-25 Mcg Ellipta INHALATION 1 puff DAILYRT LINDY Administration Guaifenesin 200 mg 02/28/25 09:00 03/06/25 13:07 Guaifenesin 200 Mg/10 Ml Udc PO 200 mg Q4HR LINDY Administration Ceftriaxone Sodium 1 gm/ 50 mls @ 100 mls/hr 02/28/25 16:00 03/05/25 17:00 Sodium Chloride IVPB 100 mls/hr Q24H LINDY Administration Lactobacillus Acidophilus 1 tablet 02/28/25 09:00 03/06/25 09:26 Acidophilus/Bulgaricus Chewable Tablet PO 1 tablet DAILY LINDY Administration Loperamide HCl 2 mg 02/28/25 01:03 Loperamide Hcl 2 Mg Capsule PO PRN PRN Diarrhea Lorazepam 0.5 mg 02/28/25 00:34 Lorazepam (*Crx) 0.5 Mg Tablet PO DAILY PRN Anxiety Magnesium Oxide 400 mg 02/28/25 09:00 03/06/25 09:26 Magnesium Oxide 400 Mg Tablet PO 400 mg DAILY LINDY Administration Ondansetron HCl 4 mg 02/27/25 14:47 Ondansetron Inj 4 Mg/2 Ml Vial IV PUSH Q4H PRN Nausea Potassium Chloride 20 meq 03/01/25 09:00 03/06/25 09:27 Potassium Chloride 20 Meq Packet (For Liquid) PO 20 meq DAILY LINDY Administration Simethicone 125 mg 02/28/25 01:19 Simethicone 125 Mg Chew Tab PO QID PRN Gas Tamsulosin HCl 0.4 mg 02/28/25 09:00 03/06/25 09:26 Tamsulosin Hcl 0.4 Mg Capsule PO 0.4 mg DAILY LINDY Administration Trazodone HCl 50 mg 02/28/25 00:34 03/02/25 22:12 Trazodone Hcl 50 Mg Tablet PO 50 mg HS PRN Administration Sleep Vitamin D 100 mcg 02/28/25 09:00 03/06/25 09:26 Cholecalciferol (Vitamin D3) 25 Mcg (1,000 Units) Tablet PO 100 mcg DAILY LINDY Administration Labs Labs: Laboratory Results - last 24 hr 03/06/25 10:19 WBC 8.8 RBC 4.72 Hgb 14.5 Hct 44.2 MCV 93.6 MCH 30.7 MCHC 32.8 RDW 13.2 Plt Count 348 MPV 8.3 Sodium 133 L Potassium 4.9 Chloride 105 Carbon Dioxide 22 Anion Gap 6 BUN 32 H Creatinine 1.28 Estim Creat Clear Calc 38 Estimated GFR 54 L Glucose 150 H Calcium 9.3 Total Bilirubin 0.6 AST 60 H ALT 125 H Alkaline Phosphatase 144 H Total Protein 7.1 Albumin 3.8 Quality VTE Prophylaxis VTE prophylaxis: pharmacologic ordered
[2025-03-06] MEDS: cefTRIAXone 1 GM in SODIUM CHLORIDE 0.9% IV 50 ML 100 ML IVPB (16:52)
[2025-03-06] MEDS: ACETYLCYSTEINE 20% INHAL SOLN 800 MG/4 ML VIAL 200 MG INHALATION (20:46)
[2025-03-07 05:56] VITALS: BP 147/63; PULSE 101; RESP 18; TEMP 36.2; O2SAT 95
[2025-03-07] MEDS: IPRATROPIUM 0.5 MG/ALBUTEROL SULFATE 2.5 MG (BASE) AMPUL.NEB 3 ML INHALATION (08:46)
[2025-03-07] MEDS: ACETYLCYSTEINE 20% INHAL SOLN 800 MG/4 ML VIAL 200 MG INHALATION (08:47)
[2025-03-07 08:48] VITALS: PULSE 102; RESP 19
[2025-03-07] MEDS: CHOLECALCIFEROL (VITAMIN D3) 25 MCG (1,000 UNITS) TABLET 100 MCG PO (10:00)
[2025-03-07] MEDS: MAGNESIUM OXIDE 400 MG TABLET PO (10:00)
[2025-03-07] MEDS: TAMSULOSIN HCL 0.4 MG CAPSULE PO (10:00)
[2025-03-07] MEDS: ACIDOPHILUS/BULGARICUS CHEWABLE TABLET 1 TABLET PO (10:00)
[2025-03-07] MEDS: POTASSIUM CHLORIDE 20 MEQ PACKET (FOR LIQUID) PO (10:01)
[2025-03-07] MEDS: FINASTERIDE 5 MG TABLET PO (10:01)
[2025-03-07] MEDS: FLUTICASONE PROPIONATE 0.05% NA SPR 16 GM BTL (*BKC) 1 SPRAY NASAL (10:02)
--- NOTE | 2025-03-07 11:51 | P.DS_ITS ---
DS: Admitting Diagnosis Discharge Date 03/07/2025 Admitting Diagnosis sepsis pneumonia involving left lung copd nat DS: Discharge Diagnosis Discharge Diagnosis (1) Sepsis: Qualifiers: Sepsis acute organ dysfunction status: without acute organ dysfunction Sepsis type: sepsis due to unspecified organism Qualified Code(s): A41.9 - Sepsis, unspecified organism Code(s): A41.9 - Sepsis, unspecified organism Status: Acute (2) Pneumonia involving left lung: Qualifiers: Lung location: lower lobe of lung Pneumonia type: due to unspecified organism Qualified Code(s): J18.9 - Pneumonia, unspecified organism Code(s): J18.9 - Pneumonia, unspecified organism Status: Acute (3) Chronic obstructive pulmonary disease: Qualifiers: COPD type: unspecified COPD Qualified Code(s): J44.9 - Chronic obstructive pulmonary disease, unspecified Code(s): J44.9 - Chronic obstructive pulmonary disease, unspecified Status: Acute (4) Acute kidney injury: Code(s): N17.9 - Acute kidney failure, unspecified Status: Acute DS: Summary Hospital Course Reason for hospitalization: sepsis pneumonia involving left lung copd nat Hospital Course: 84-year-old male with a history of COPD, Crohn?s disease status post total colectomy with ileostomy, depression/anxiety, BPH, and migraines who was admitted on 02/27/25 for shortness of breath, dizziness, and nausea after failing outpatient treatment for a left lower lobe pneumonia. He had been initially treated with azithromycin as an outpatient and subsequently doxycycline but was unable to tolerate oral antibiotics due to nausea and felt unsafe caring for himself at home. On admission, he met SIRS criteria with elevated lactic acid, tachycardia and tachypnea, prompting concern for sepsis in the setting of pneumonia, though without leukocytosis or hypotension. Blood cultures remained negative, lactic acid downtrended, procalcitonin was low, and sepsis resolved with IV fluids and antibiotics. He was treated with IV ceftri axone and azithromycin (azithromycin completed on 03/03 and ceftriaxone completed on 03/07) with gradual clinical improvement. His hospital course was also notable for a COPD exacerbation, managed with scheduled DuoNebs, guaifenesin, incentive spirometry, and continuation of home inhalers; systemic steroids were avoided due to documented intolerance. He remained on room air throughout hospitalization without hypoxia. A mild acute kidney injury on admission, felt secondary to dehydration and poor oral intake, improved with IV fluids and returned to baseline renal function. Patient was evaluated by physical and occupational therapy who recommended home health at time of discharge however per care coordination patient can not have home health at this time and will need referral from PCP. Patient stated he felt he was ambulating at his baseline and denied any dizziness/lightheadedness. Discussed with patient that he is to obtain referral from PCP, stated understanding. Over the course of admission, his respiratory status steadily improved with decreased dyspnea, stable productive cough, and improving lung exam. He remained hemodynamically stable, afebrile, and cognitively intact, and was able to tolerate oral intake and medications. By discharge, sepsis had resolved, pneumonia and COPD exacerbation were improving, renal function was stable. Patient had no complaints at time of discharge stating that shortness of breaht had greatly improved and continued to deny chest pain, palpitations, nausea/vomiting, and dizziness/lightheadedness. Patient discharged home in a stable condition. He is to follow up with his PCP in 1 week. Status at Discharge Functional status at discharge: uses cane/walker Time Spent with Patient Time attestation: Total time spent providing and/or coordinating discharge services: Time spent: Greater than 30 minutes Exam Narrative: AF HR 101 RR 18 SPO2 95 BP 147/63 General: male in no acute respiratory distress who is nontoxic appearing, sitting up in chair HEENT: Normocephalic. Atraumatic. Extraocular movement intact. Sclera clear and anicteric. No facial asymmetry. Chest: Lungs are slightly diminished to auscultation bilaterally but much improved from yesterday. Improved productive cough. CV: Heart was regular rate and rhythm. Abd: Abdomen was soft. Nontender. Nondistended. Positive bowel sounds. Ostomy in place. Ext: No clubbing, cyanosis, or edema. DP pulses bilaterally. Neuro: Patient is alert. Speech is clear. DS: Data Data Completed and Pending Completed studies during hospitalization: chest xr Discharge Plan Discharge Attending physician on discharge: Kristi Patino Consulting providers: Ana Carballo Discharging Clinician: Ana Carballo Anticipated Discharge Date/Time: 03/07/25 11:34 Patient Disposition: Home Activity: as tolerated Diet: as tolerated Discharge Instructions: You were hospitalized for pneumonia and a flare-up (exacerbation) of your chronic obstructive pulmonary disease (COPD). You have completed your antibiotic treatment in the hospital. Medications Continue taking all your medications exactly as prescribed: * Inhalers: Use your inhalers every day as prescribed, even when you feel better. These help keep your airways open and prevent future flare-ups. * Rescue inhaler?(albuterol): Use as needed for shortness of breath. If you need to use this more than twice a day, call your doctor. * Can obtain a nebulizer from [facility] [address] [place] [address], open on 03/08 * Other medications: Continue all your other regular medications unless your doctor tells you to stop. What to Expect at Home Recovery takes time. It may take 4-6 weeks to feel back to your normal baseline. You may continue to feel tired and have some shortness of breath during this time. This is normal, but symptoms should gradually improve. Activity * Rest when you feel tired, but try to stay as active as possible * Gradually increase your activity level each day * Avoid heavy lifting or strenuous activity for the first week Warning Signs - Call 911 or Go to the Emergency Room If You Have: * Severe shortness of breath that does not improve with your rescue inhaler * Chest pain * Confusion or difficulty staying awake * Coughing up blood * Bluish lips or fingernails Call Your Doctor If You Have: * Worsening shortness of breath * Increased cough or change in mucus color (especially yellow, green, or bloody) * Fever (temperature over 100.4?F or 38?C) * Increased swelling in your legs or feet * Symptoms that are not improving after a few days at home Important Steps to Stay Healthy * Stop smoking: This is the most important thing you can do for your lungs. Ask your doctor about smoking cessation programs and medications that can help. * Avoid lung irritants: Stay away from secondhand smoke, strong fumes, air pollution, and very cold air. * Get vaccinated: Make sure you are up to date on your pneumonia vaccine and yearly flu shot. Ask about the COVID-19 vaccine. * Use your inhalers correctly: Ask your doctor or pharmacist to watch you use your inhaler to make sure you are using the correct technique. * Wash your hands frequently?to prevent infections. Patient evaluated by therapy and recommend continued therapy, patient to obtain scripts from PCP Monitor blood pressures Take caution while standing, rising, or moving Change positions slowly taking a break between each position change If you standing feel dizzy sit back down and take a break Encouraged to continue with yearly vaccinations Return to the emergency department if he developed sudden shortness of breath, chest pain, nausea, vomiting, upset stomach or intractable diarrhea Return to the emergency department if you develop fever greater than 100.5 Follow-up with the primary care physician within 1-2 weeks Thank you for [facility] for your healthcare needs Patient Instructions: COPD (Chronic Obstructive Pulmonary Disease) (DC), Pneumonia (DC) Patient Language: Latvian Stand Alone Forms: General Discharge Information Follow-up/Referrals: Gino,MD Konstantin [Primary Care Provider] - 1 Week Discharge Medications: Continued magnesium oxide 400 mg magnesium capsule 400 mg PO DAILY potassium 99 mg tablet 99 mg PO DAILY tamsulosin 0.4 mg capsule 0.4 mg PO DAILY finasteride 5 mg tablet 5 mg PO DAILY fluticasone propionate [Allergy Relief (fluticasone)] 50 mcg/actuation spray,suspension 1 spray intranasal BID Rx Instructions: administer into each nostril Adult Probiotic 3 billion cell capsule 250 mmu cells PO DAILY Rx Instructions: administer with a meal loperamide-simethicone 2-125 mg tablet 1 tablet PO Q3H PRN (Reason: Constipation) Rx Instructions: do not exceed 4 tabs in 24 hrs bupropion HCl 100 mg tablet 100 mg PO TID Rx Instructions: administer 6 hours apart (DME) skin barrier, softflex ring 48 MM (10/bx) holstr See Rx Instructions .Route .MEDSUPPLY Qty: 10 11RF Rx Instructions: As directed (DME) Pouch, ostomy DRN w/trans FLTR 57 MM (10/bx) holster See Rx Instructions .Route .MEDSUPPLY Qty: 1 11RF Rx Instructions: As directed tadalafil 5 mg tablet 5 mg PO DAILY loperamide [Anti-Diarrheal (loperamide)] 2 mg capsule 2 mg PO DAILY cholecalciferol (vitamin D3) 100 mcg (4,000 unit) tablet 100 mcg PO DAILY trazodone 50 mg tablet 50 mg PO HS PRN (Reason: Sleep) lorazepam 0.5 mg tablet 0.5 mg PO DAILY PRN (Reason: Anxiety) Trelegy Ellipta 100-62.5-25 mcg blister with device 1 inh INHALATION DAILY albuterol sulfate 90 mcg/actuation Hfa Aerosol Inhaler 1 puff INHALATION QID PRN (Reason: Shortness Of Breath) (DME) nebulizers Misc See Rx Instructions .Route Qty: 1 0RF Rx Instructions: As directed ipratropium-albuterol 0.5 mg-3 mg(2.5 mg base)/3 mL solution for nebulization 3 ml inhalation QID PRN (Reason: shortness of breath) Qty: 90 0RF Date of admission: 03/01/25 15:07 Primary Care Provider: Lyndsey*Konstantin Admitting Provider: Kobi Culver Attending physician on admission: Kobi Culver Condition: Stable Hospitalist MIPS Heart Failure (Exclusion) Patient has history of Heart Transplant or Left Ventricular Assistive Device?: No IF YES, STOP HERE Heart Failure (Qualifier) Patient has current or prior documentation of LVEF less than or equal to 40%, or mod/servere depressed LVSF?: No IF NO, STOP HERE
== END 2025-03-07 13:20 | disposition home or self-care (01) | DRG 871 ==
LOC: ANHED 14:46 → ANH3MEDSUR 15:54
PROVIDERS: Nurse Practitioner; Student in an Organized Health Care Education/Training Program; Admitting Provider Internal Medicine; Emergency Provider Emergency Medicine; PCP Internal Medicine; Visit Provider Student in an Organized Health Care Education/Training Program
DX: A41.9 Sepsis, unspecified organism (principal); J18.9 Pneumonia, unspecified organism; J44.0 Chronic obstructive pulmonary disease with (acute) lower respiratory infection; J44.1 Chronic obstructive pulmonary disease with (acute) exacerbation; N17.9 Acute kidney failure, unspecified; K50.90 Crohn's disease, unspecified, without complications; N40.0 Benign prostatic hyperplasia without lower urinary tract symptoms; K21.9 Gastro-esophageal reflux disease without esophagitis; M19.90 Unspecified osteoarthritis, unspecified site; M54.50 Low back pain, unspecified; G89.29 Other chronic pain; F41.9 Anxiety disorder, unspecified; F32.A Depression, unspecified; Z93.2 Ileostomy status; Z87.891 Personal history of nicotine dependence
CPT/HCPCS: 36415; 80048; 80053; 83605; 84145; 85025; 85027; 87040; 94640; 94667; 96361; 96365; 96366; 96372; 96374; 96375; 96376; 97110; 97161; 97166; 97530; 97535; 99285; A9270; G0378; J0456; J0696; J0780; J1200; J1650; J2405; J7030; J7050; J7120